=== PATIENT | female | born 1950 | race Caucasian/White ===

== ENCOUNTER 2019-06-05 16:40 | Inpatient (IN) ==
[2019-06-05] MEDS ORDERED: ACETAMINOPHEN 325 MG TAB PO PRN (17:24)
[2019-06-05] MEDS ORDERED: ONDANSETRON INJ 2 MG/ML 2 ML VIAL IV PRN (17:24)
--- NOTE | 2019-06-05 17:33 | History & Physical Report ---
Date of Service June 05, 2019 Assessment & Plan (1) JACQUIE (acute kidney injury): - Admit to PCU with increased Cr. 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 Bowman, consider consultation - Previously was on Velcade and Revlimid, and dexamethasone - reconcile meds (4) History of TIA (transient ischemic attack): - hx of such, stable (5) Mood disorder: - Continue SSRI (6) Anemia: - Checking cbc currently, hx of such. (7) DVT prophylaxis: - teds, heparin subq Dispo: From home, likely to be in the hospital for at least 2 days. Note: I was unable to see that patient myself, therefore attending will supplement and addend the above note, as well as perform PE and med reconciliation. History of Present Illness Primary Care Provider: Albino Rojas Yonathan This is a 68 yo F with PMHx of MM originally diagnosed in Jul 2018 with multiple bony mets involving 4th left fibs, T9, T12, L1 vertebrae, and calavarium. She also has hx of thrombocytopenia, anemia, hx of TIA x 3, mood disorder, hypercalcemia who presents to [facility] as a direct admission from [facility] due to increased nausea and vomiting x one week. Allergies Allergy/AdvReac Type Severity Reaction Status Date / Time ibuprofen AdvReac Tachycardia Unverified 08/08/18 14:02 Home Medications Home Medications Medication Instructions Recorded Confirmed Type aspirin [Vika Aspirin] 325 mg PO DAILY 08/08/18 08/08/18 History sertraline [Zoloft] 100 mg PO BID 08/08/18 08/08/18 History lidocaine 3 patch TRANSDERMAL QAM #10 ea 08/16/18 Rx oxycodone 10 mg PO Q6 PRN #12 tab 08/16/18 Rx Past Med/Surg History Social History Preferred Language: Andorran Communication Ability: Effective Visual Impairment: No Limitations Hearing Ability: Normal Manager Library Required: No Beliefs That Will Affect Care: None Current Living Situation: Family Current Living Situation Comment: lives with son Feels Safe at Home: Yes Smoking Status: Former smoker Second Hand Exposure: No ; Hx Alcohol Use: No Hx Substance Use: No Code Status & VTE Plan VTE Prophylaxis Plan VTE Prophylaxis will be ordered: Yes PG Care Time/CCT Total # of Minutes Spent Total Time Spent with Patient: Total time spent is greater than 50% in coordination of care (as documented) at patient's floor/unit and/or counseling patient: (1) Multiple myeloma Multiple myeloma remission status: unspecified Qualified Code(s): C90.00 - Multiple myeloma not having achieved remission
[2019-06-05] MEDS ORDERED: HEPARIN SOD 5,000 UNIT/0.5 ML VIAL SQ SCH (22:00)
[2019-06-06] MEDS: SODIUM CHLORIDE 0.9% 1000ML 1,000 ML IV SCH ×4 (01:22→15:47)
[2019-06-06] MEDS: PATIENT'S HEIGHT AND/OR WEIGHT NEEDED SCH ×3 (01:22→02:03)
--- NOTE | 2019-06-06 02:01 | History & Physical Report ---
Date of Service June 06, 2019 Assessment & Plan (1) JACQUIE (acute kidney injury): Ms. Fuller is a 68 year old female with a past medical history of multiple myeloma originally diagnosed in Jul 2018 with multiple bony lytic lesions involving 4th left ribs, T9, T12 and L1 vertebrae, and calvarium, thrombocytopenia, anemia, hx of TIA x 3, right leg DVT and depression who presents to [facility] as a direct admission from [facility] due to acute kidney injury. Acute Kidney Injury -admit to telemetry -Creatinine level at [facility] 4.67, significant change from creatinine of 0.85 in 04/14 -unsure of cause of JACQUIE at this time - potentially related to poor p.o intake vs. drug induced vs. infection (see below) -hydrate with NS at 125 mls/hr -repeat labs, including CMP, magnesium, phosphorous, creatine kinase -hold nephrotoxic agents -oh placed at [facility] - monitor urinary output -consider nephrology consult if no improvement in creatinine Nausea and Vomiting -resolved -related to MM medications vs. infection ? Positive UA -UA positive for blood, leukocyte esterase, white cells, bacteria -> will send for culture -Blood cultures also ordered -No overt urinary symptoms, however in the face of chills, vomiting, elevated creatinine and lactic acidosis -will treat empirically with 2 g IV Rocephin daily Multiple Myeloma -follows with Dr. Andersen, will consult -receiving treatment with Revlimid -> will hold treatment at this time given concern for active infection. Defer decision on when to restart to heme/onc -> pt states her regimen is 14 days of revlimid, and 7 days off. She states today is day 4 of her 14 days of the medication -also receiving once a month bisphosphonates Pancytopenia -White cell count 1.81, hemoglobin 10.7, platelets 62 - all lower than labs ordered in 04/14 -worsening pancytopenia could be related to MM vs. treatment with Revlimid -repeat CBC Transaminitis -AST 362 and ALT 164 -> increased from normal LFTs in 03/2019 -no RUQ pain, pt has had a prior cholecystectomy -Revlimid does list hepatotoxicity as an adverse reaction - could potentially be the cause? -trend LFTs Hypertension -continue home metoprolol Right Leg DVT -diagnosed in April 2019 -hold lovenox given thrombocytopenia and JACQUIE -depending on AM labs, can restart lovenox vs. heparin drip for DVT Depression -continue home sertraline Code status: FULL DVT Prophylaxis: hold in the setting of thrombocytopenia Disposition: admitted to telemetry (2) Nausea & vomiting: (3) Multiple myeloma: (4) History of TIA (transient ischemic attack): (5) Mood disorder: (6) Anemia: (7) Thrombocytopenia: History of Present Illness Chief Complaint: Acute Kidney Injury Primary Care Provider: Albino Mcmanus Ms. Fuller is a 68 year old female with a past medical history of multiple myeloma originally diagnosed in Jul 2018 with multiple bony lytic lesions involving 4th left ribs, T9, T12 and L1 vertebrae, and calvarium, thrombocytopenia, anemia, hx of TIA x 3, right leg DVT and depression who presents to [facility] as a direct admission from [facility] due to acute kidney injury. She states she had a 1 week history of vomiting that stopped 3 days ago. She did have several episodes of loose stools 4 days ago, took Imodium and has not had any since. She presented to the emergency department at [facility] due to feeling fatigued and weak. She denies any further episodes of vomiting or diarrhea. She states she never had any abdominal pain, urinary symptoms or fever. She does report intermittent chills. She denies chest pain or shortness of breath. The patient states that she was transferred to [facility] due to an elevated creatinine level. Her labs from [facility] are significant for: WCC 1.81, Hgb 10.6, Platelets 62. Na 136, K 3.8, BUN 50, Cr 4.67, Alk phos 57, AST 362, ALT 164, Mg 1.6, Lactic Acid 3.2, and negative trop. Blood and urine cultures were ordered. She was given a 1L normal saline bolus and subsequently transferred to [facility]. PMHx: Multiple myeloma, follows with Dr. Andersen. Right leg DVT, diagnosed 1 month ago. TIA x3. Depression. PSHx: Hysterectomy, cholecystectomy Meds: Revlimid 25 mg daily, Lopressor 25 mg twice daily, Lovenox 100 mg twice daily, Zoloft 100 mg twice daily Allergies: No known drug allergies SHx: She is a former smoker, and quit approximately 30 years ago, but smoked 3 packs a day for 17 years. She rarely consumes alcohol and denies illicit drug use. Allergies Allergy/AdvReac Type Severity Reaction Status Date / Time ibuprofen AdvReac Tachycardia Unverified 08/08/18 14:02 Home Medications Home Medications Medication Instructions Recorded Confirmed Type aspirin [Vika Aspirin] 325 mg PO DAILY 08/08/18 08/08/18 History sertraline [Zoloft] 100 mg PO BID 08/08/18 08/08/18 History lidocaine 3 patch TRANSDERMAL QAM #10 ea 08/16/18 Rx oxycodone 10 mg PO Q6 PRN #12 tab 08/16/18 Rx Past Med/Surg History Medical History Leukopenia Multiple myeloma History of TIA (transient ischemic attack) History of hysterectomy Mood disorder No known problems Social History Preferred Language: Argentine Communication Ability: Effective Visual Impairment: No Limitations Hearing Ability: Normal Senior Physician Required: No Beliefs That Will Affect Care: None Current Living Situation: Alone Current Living Situation Comment: lives with son Other Information That Helps Us Care for You: No Feels Safe at Home: Yes Safety Concerns: Feels Safe At This Time Smoking Status: Unknown if ever smoked Hx Alcohol Use: No Hx Substance Use: No Review of Systems Constitutional: + chills, + fatigue and + weakness; no fever Cardiovascular: + calf pain; no chest pain, no palpitations, no syncope and no edema Gastrointestinal: no abdominal pain, no nausea, no vomiting and no change in bowel habits Genitourinary: no dysuria, no difficulty urinating and no urinary frequency Musculoskeletal: no back pain Integumentary: no rash Physical Exam Constitutional: WD/WN, vitals as above cooperative and comfortable Eyes: PERRL, conjunctivae normal, anicteric sclerae ENMT: external ear and nose normal, oropharynx normal (dry mucous membranes) Respiratory: normal respiratory effort, lungs clear to auscultation Cardiovascular: RRR, no murmur, no edema Gastrointestinal (Abdomen): normal bowel sounds, soft, nontender, no hepatosplenomegaly (multiple bruises noted to abdomen) Musculoskeletal: right calf TTP, no erythema, not warm to touch Skin: no rashes, warm and dry Neurologic: Cranial nerves 2-12 grossly intact 5/5 power in UE and LE Psychiatric: A+Ox3, euthymic affect Results & Data Vital Signs (Past 12 Hours) Vital Signs Pulse Resp BP Pulse Ox 06/06/19 01:09 78 18 102/51 L 98 Code Status & VTE Plan VTE Prophylaxis Plan VTE Prophylaxis will be ordered: Yes Supervising Physician Co-Signing Physician Notes Patient was seen and examined by me personally. I reviewed the chart, the orders and discussed the case in detail with Dr. Miley Zambrano MD . I read this H&P and agree with its contents to entirety. PG Care Time/CCT Total # of Minutes Spent Total Time Spent with Patient: Total time spent is greater than 50% in coordination of care (as documented) at patient's floor/unit and/or counseling patient: Resident Activity Tracking Resident Involvement: Resident Care Provided Care Provided: Adult [facility] Medicine (1) Multiple myeloma Multiple myeloma remission status: unspecified Qualified Code(s): C90.00 - Multiple myeloma not having achieved remission
[2019-06-06 02:07] LABS: Appearance Urine Cloudy (Clear); Bacteria Urine Automated 4+ (Negative); Bilirubin Urine Negative (Negative); Blood Urine 2+ (Negative); Color Urine Yellow; Epithelial Cell Urine Auto 0-5 /lpf (0-5); Glucose Urine UA Negative (Negative); Ketones Urine Negative (Negative); Leukocyte Esterase Urine 3+ (Negative); Nitrite Urine Negative (Negative); Protein Urine 2+ (Negative); Specific Gravity Urine 1.013 (1.000-1.030); Urobilinogen Urine Negative (Negative); WBC Urine Automated >30 /hpf (0-5)
[2019-06-06 03:37] LABS: Albumin Globulin Ratio 0.3 (0.9-2); BUN Creatinine Ratio 11.7 (10-20); Bilirubin,Total 0.8 mg/dl (0.2-1); Calcium 7.2 mg/dl (8.5-10.1); Creatinine Clr Calc Pharmacy 13.6 ml/min; Est GFR (African American) 10.7; Est GFR (Non-African American) 9.3; Globulin 6.5 gm/dl (2.5-4.0); Phosphorus 3.4 mg/dl (2.5-4.9); Total Protein 8.5 gm/dl (6.4-8.2)
[2019-06-06 04:21] LABS: Hematocrit (blood only) 26.2 % (37-47); Hemoglobin 8.9 g/dL (12.0-16.0); Mean Corpuscular Volume 99.2 fL (80-100); RDW Coefficient of Variation 17.3 % (11.5-14.5); RDW Standard Deviation 62.2 fL (36.4-46.3); Red Blood Count 2.64 M/uL (4.2-5.4); White Blood Count 1.32 K/uL (4.8-10.8)
[2019-06-06 04:33] LABS: Potassium 3.6 mmol/L (3.5-5.1)
[2019-06-06 04:36] LABS: INR 1.6 (0.9-1.1); Prothrombin Time 15.8 Seconds (9.0-12.0)
[2019-06-06 04:42] LABS: Magnesium 1.5 mg/dl (1.8-2.4)
[2019-06-06] MEDS: cefTRIAXone SODIUM 2,000 MG in DEXTROSE 5% 50 ML IV SCH (05:25)
[2019-06-06 05:31] LABS: Mean Platelet Volume 10.8 fL (7.4-10.4); Platelet Count 38 K/uL (130-400)
[2019-06-06] MEDS ORDERED: HEPARIN SOD 5,000 UNIT/0.5 ML VIAL SQ SCH (06:00)
[2019-06-06] MEDS: MAGNESIUM SULFATE / D5W 1 GM/100 ML BAG IV SCH ×2 (06:19→07:53)
[2019-06-06] MEDS: SERTRALINE HCL 100 MG TABLET PO SCH ×2 (07:53→20:32)
[2019-06-06] MEDS: METOPROLOL TARTRATE 25 MG TAB PO SCH ×2 (07:53→20:32)
--- NOTE | 2019-06-06 08:10 | Family Medicine Progress Note ---
Date of Service June 06, 2019 Assessment & Plan (1) JACQUIE (acute kidney injury): 68 year old female with PMH of multiple myeloma (originally diagnosed in Jul 2018 with multiple bony lytic lesions involving 4th left ribs, T9, T12 and L1 vertebrae, and calvarium), thrombocytopenia, anemia, hx of TIA x 3, right leg DVT and depression who presents to [facility] as a direct admission from [facility] due to acute kidney injury. Acute Kidney Injury Prerenal v intrarenal v post renal v infection related -Creatinine level at [facility] 4.67, significant change from creatinine of 0.85 in 04/14 Plan: -Monitor BMP - Alcohol Law Enforcement Agent not improving at this time, but urine output remains adequate. Benítez in place. Given worsening, routine consult to Nephro placed. -Post -- Renal US shows no obstruction, no hydronephrosis - not likely postrenal -Pre -- some element of nausea and vomiting per report, has been asymptomatic here. Urine Na, Alcohol Law Enforcement Agent pending -Avoiding all nephrotoxic medications, holding Revlimid. -E-lytes stable with exception of mild hypomagnesemia, repleted. -cont to monitor on telemetry Positive UA -UA positive for blood, leukocyte esterase, white cells, bacteria -> Ucx and Blood cx pending. -will treat empirically with 2 g IV Rocephin daily Multiple Myeloma -follows with Dr. Andersen, appreciate recommendations -receiving treatment with Revlimid -> will hold treatment at this time given concern for active infection. Defer decision on when to restart to heme/onc -> pt states her regimen is 14 days of revlimid, and 7 days off. Day of admission is day 4 of her 14 days of the medication -also receiving once a month bisphosphonates Acute on chronic Pancytopenia -worsening pancytopenia could be related to MM vs. treatment with Revlimid -follow CBC, hold chem anticoagulation ppx in light of low plt. Mild Transaminitis -AST 362 and ALT 164 -> increased from normal LFTs in 03/2019 -no RUQ pain, pt has had a prior cholecystectomy -follow LFTs H/o Right Leg DVT -diagnosed in April 2019 -hold lovenox given thrombocytopenia and JACQUIE -will need to restart lovenox vs. heparin drip for DVT Code status: FULL DVT Prophylaxis: SCDs, hold in the setting of thrombocytopenia Disposition: admitted to telemetry Other ongoing medical problems: Depression -continue home sertraline Hypertension -continue home metoprolol - hold for parameters (2) Nausea & vomiting: (3) Multiple myeloma: (4) History of TIA (transient ischemic attack): (5) Mood disorder: (6) Anemia: (7) Thrombocytopenia: Supervising Physician Co-Signing Physician Notes Attending attestation Pt seen and examined in concert with Dr. Rebolledo. In agreement with the documented findings as noted in the resident documentation with any exceptions or additions as noted here. Resting comfortably with mild intermittent wandering lower abdominal pain without n/v/d/c which is mildly reproducible with palpation. JACQUIE - uptrending creatinine with baseline as noted. Continue hydration. Consult nephrology. Urine sodium/creatinine and renal US to follow. Urinary tract infection - follow up UCx. Continue rocephin. Pancytopenia - trend CBC, holding chemo Multiple myeloma - oncology consultation appreciated - hold chemotherapy RLE DVT - holding lovenox 2/2 low plt. Follow CBC and restart AC when plt impr oves. Else see resident documentation as noted. Subjective Sitting upright in bed, in good spirits. Says she has noticed a gradual decrease in her urine output over the last several days, but didn't really think much of it. Otherwise has been compliant with her meds including chemotherapeutics for her MM. Denies change in her habits or dehydration or excessive NSAIDs. Has not had imaging requiring IV contrast recently. Does take aspirin daily. Review of Systems Review of Systems: All systems reviewed & are unremarkable except as noted in HPI & below (denies abdiel dysuria, abdominal pain, chest pain, dyspnea. Endorses some weakness.) Physical Exam Physical Exam: Vitals noted and within normal limits with the exception of mild hypotension GENERAL: Awake, alert to person, place, and time, nontoxic-appearing, in no distress. HENT: Normocephalic, atraumatic. EYES: Normal conjunctiva. Sclera non-icteric. EOMI. NECK: Supple. Full range of motion. RESPIRATORY: Clear to auscultation. Normal work of breathing. CARDIAC: Regular rate, normal rhythm, occasional PVCs noted on tele-monitor. Extremities warm and well perfused. ABDOMEN: Soft, non-distended. No tenderness to palpation . Bowel sounds are normal. LOWER EXTREMITIES: Inspection of calves reveal equal size bilaterally. They are non-tender. No edema. No discoloration. NEURO: No gross focal motor deficits noted. Sensation in tact. CN II-XII grossly in tact. . SKIN: Rash not present. No jaundice noted. Significant lesions not present. PSYCH: Appropriate mood and affect. Cooperative. Exam as done by Abril Rebolledo MD, [employer]. Results & Data Vital Signs (Past 12 Hours) Vital Signs Temp Pulse Pulse Resp BP Pulse Ox 06/06/19 08:09 76 06/06/19 07:48 36.8 C 73 18 104/53 L 91 06/06/19 03:11 36.6 C 78 18 101/58 L 97 06/06/19 02:13 78 06/06/19 01:09 78 18 102/51 L 98 Laboratory Results 06/06/19 06/06/19 06/06/19 Range/Units 11:50 11:50 03:59 WBC 1.45 L 1.32 L (4.8-10.8) K/uL RBC 2.79 L 2.64 L (4.2-5.4) M/uL Hgb 9.5 L 8.9 L (12.0-16.0) g/dL Hct 27.8 L 26.2 L (37-47) % MCV 99.6 99.2 (80-100) fL MCH 34.1 H 33.7 (25-34) pg MCHC 34.2 34.0 (32-36) g/dL RDW Std Deviation 62.5 H 62.2 H (36.4-46.3) fL RDW Coeff of Kimberly 17.3 H 17.3 H (11.5-14.5) % Plt Count 36 L 38 L (130-400) K/uL MPV 10.7 H 10.8 H (7.4-10.4) fL Neutrophils % (Manual) 36.0 61.0 % Lymphocytes % (Manual) 33.0 14.0 % Monocytes % (Manual) 15.0 12.0 % Eosinophils % (Manual) 1.0 3.0 % Basophils % (Manual) 2.0 % Metamyelocytes % (Man) 5.0 1.0 % Myelocytes % (Man) 9.0 4.0 % Blast Cells % (Manual) 1.0 % Other Cells % 3.0 % Neutrophils # (Manual) 0.52 L 0.81 L (1.4-6.5) K/uL Total Absolute Neuts 0.52 L* 0.81 L* (1.4-6.5) K/uL Lymphocytes # (Manual) 0.48 L 0.18 L (1.2-3.4) K/uL Total Abs Lymphocytes 0.48 L 0.18 L (1.2-3.4) K/uL Monocytes # (Manual) 0.22 0.16 (0.11-0.59) K/uL Eosinophils # (Manual) 0.01 0.04 (0-0.5) K/uL Basophils # (Manual) 0.03 (0-0.2) K/uL Metamyelocytes # (Man) 0.07 H 0.01 H (0-0) K/uL Myelocytes # (Manual) 0.13 H 0.05 H (0-0) K/uL Blast Cells # (Man) 0.01 H 0.04 H (0-0) K/uL Other Cells # 0.04 H (0-0) K/uL Blood Smear Review RBC Morphology Unremarkable Unremarkable PT INR Sodium 137 (136-145) mmol/L Potassium 4.0 (3.5-5.1) mmol/L Chloride 104 (98-107) mmol/L Carbon Dioxide 21 (21-32) mmol/L Anion Gap 12.0 H (3-11) BUN 57 H (7-18) mg/dl Creatinine 5.14 H* D (0.6-1.2) mg/dl Est Cr Clr Drug Dosing 12.2 ml/min Est GFR ( Amer) 9.4 Est GFR (Non-Af Amer) 8.1 BUN/Creatinine Ratio 11.1 (10-20) Glucose 109 H (70-99) mg/dl Lactate (0.4-2.0) mmol/L Calcium 7.4 L (8.5-10.1) mg/dl Phosphorus (2.5-4.9) mg/dl Magnesium (1.8-2.4) mg/dl Total Bilirubin 0.6 (0.2-1) mg/dl AST 335 H (15-37) U/L ALT 192 H (12-78) U/L Alkaline Phosphatase 54 (45-117) U/L Total Creatine Kinase (26-192) U/L Total Protein 8.5 H (6.4-8.2) gm/dl Albumin 2.0 L (3.4-5.0) gm/dl Globulin 6.5 H (2.5-4.0) gm/dl Albumin/Globulin Ratio 0.3 L (0.9-2) Urine Color Urine Appearance (Clear) Urine pH (4.5-7.5) Ur Specific Carson (1.000-1.030) Urine Protein (Negative) Urine Glucose (UA) (Negative) Urine Ketones (Negative) Urine Blood (Negative) Urine Nitrite (Negative) Urine Bilirubin (Negative) Urine Urobilinogen (Negative) Ur Leukocyte Esterase (Negative) Urine WBC (Auto) (0-5) /hpf Urine RBC (Auto) (0-4) /hpf U Hyaline Cast (Auto) (0-5) /lpf U Epithel Cells (Auto) (0-5) /lpf Urine Bacteria (Auto) (Negative) Hepatitis C Ab Screen (Neg) 06/06/19 06/06/19 06/06/19 Range/Units 03:59 03:59 02:52 WBC (4.8-10.8) K/uL RBC (4.2-5.4) M/uL Hgb (12.0-16.0) g/dL Hct (37-47) % MCV (80-100) fL MCH (25-34) pg MCHC (32-36) g/dL RDW Std Deviation (36.4-46.3) fL RDW Coeff of Kimberly (11.5-14.5) % Plt Count (130-400) K/uL MPV (7.4-10.4) fL Neutrophils % (Manual) % Lymphocytes % (Manual) % Monocytes % (Manual) % Eosinophils % (Manual) % Basophils % (Manual) % Metamyelocytes % (Man) % Myelocytes % (Man) % Blast Cells % (Manual) % Other Cells % % Neutrophils # (Manual) (1.4-6.5) K/uL Total Absolute Neuts (1.4-6.5) K/uL Lymphocytes # (Manual) (1.2-3.4) K/uL Total Abs Lymphocytes (1.2-3.4) K/uL Monocytes # (Manual) (0.11-0.59) K/uL Eosinophils # (Manual) (0-0.5) K/uL Basophils # (Manual) (0-0.2) K/uL Metamyelocytes # (Man) (0-0) K/uL Myelocytes # (Manual) (0-0) K/uL Blast Cells # (Man) (0-0) K/uL Other Cells # (0-0) K/uL Blood Smear Review RBC Morphology PT 15.8 H INR 1.6 H Sodium (136-145) mmol/L Potassium 3.6 (3.5-5.1) mmol/L Chloride (98-107) mmol/L Carbon Dioxide (21-32) mmol/L Anion Gap (3-11) BUN (7-18) mg/dl Creatinine (0.6-1.2) mg/dl Est Cr Clr Drug Dosing ml/min Est GFR ( Amer) Est GFR (Non-Af Amer) BUN/Creatinine Ratio (10-20) Glucose (70-99) mg/dl Lactate (0.4-2.0) mmol/L Calcium (8.5-10.1) mg/dl Phosphorus (2.5-4.9) mg/dl Magnesium 1.5 L (1.8-2.4) mg/dl Total Bilirubin (0.2-1) mg/dl AST 321 H (15-37) U/L ALT (12-78) U/L Alkaline Phosphatase (45-117) U/L Total Creatine Kinase 100 (26-192) U/L Total Protein (6.4-8.2) gm/dl Albumin (3.4-5.0) gm/dl Globulin (2.5-4.0) gm/dl Albumin/Globulin Ratio (0.9-2) Urine Color Urine Appearance (Clear) Urine pH (4.5-7.5) Ur Specific Carson (1.000-1.030) Urine Protein (Negative) Urine Glucose (UA) (Negative) Urine Ketones (Negative) Urine Blood (Negative) Urine Nitrite (Negative) Urine Bilirubin (Negative) Urine Urobilinogen (Negative) Ur Leukocyte Esterase (Negative) Urine WBC (Auto) (0-5) /hpf Urine RBC (Auto) (0-4) /hpf U Hyaline Cast (Auto) (0-5) /lpf U Epithel Cells (Auto) (0-5) /lpf Urine Bacteria (Auto) (Negative) Hepatitis C Ab Screen Neg (Neg) 06/06/19 06/06/19 06/06/19 Range/Units 02:52 02:52 02:52 WBC (4.8-10.8) K/uL RBC (4.2-5.4) M/uL Hgb (12.0-16.0) g/dL Hct (37-47) % MCV (80-100) fL MCH (25-34) pg MCHC (32-36) g/dL RDW Std Deviation (36.4-46.3) fL RDW Coeff of Kimberly (11.5-14.5) % Plt Count (130-400) K/uL MPV (7.4-10.4) fL Neutrophils % (Manual) % Lymphocytes % (Manual) % Monocytes % (Manual) % Eosinophils % (Manual) % Basophils % (Manual) % Metamyelocytes % (Man) % Myelocytes % (Man) % Blast Cells % (Manual) % Other Cells % % Neutrophils # (Manual) (1.4-6.5) K/uL Total Absolute Neuts (1.4-6.5) K/uL Lymphocytes # (Manual) (1.2-3.4) K/uL Total Abs Lymphocytes (1.2-3.4) K/uL Monocytes # (Manual) (0.11-0.59) K/uL Eosinophils # (Manual) (0-0.5) K/uL Basophils # (Manual) (0-0.2) K/uL Metamyelocytes # (Man) (0-0) K/uL Myelocytes # (Manual) (0-0) K/uL Blast Cells # (Man) (0-0) K/uL Other Cells # (0-0) K/uL Blood Smear Review RBC Morphology PT Cancelled INR Cancelled Sodium 137 (136-145) mmol/L Potassium (3.5-5.1) mmol/L Chloride 105 (98-107) mmol/L Carbon Dioxide 23 (21-32) mmol/L Anion Gap 9.0 (3-11) BUN 54 H (7-18) mg/dl Creatinine 4.60 H* (0.6-1.2) mg/dl Est Cr Clr Drug Dosing 13.6 ml/min Est GFR ( Amer) 10.7 Est GFR (Non-Af Amer) 9.3 BUN/Creatinine Ratio 11.7 (10-20) Glucose 83 (70-99) mg/dl Lactate 1.1 (0.4-2.0) mmol/L Calcium 7.2 L (8.5-10.1) mg/dl Phosphorus 3.4 (2.5-4.9) mg/dl Magnesium (1.8-2.4) mg/dl Total Bilirubin 0.8 (0.2-1) mg/dl AST (15-37) U/L ALT 179 H (12-78) U/L Alkaline Phosphatase 49 (45-117) U/L Total Creatine Kinase (26-192) U/L Total Protein 8.5 H (6.4-8.2) gm/dl Albumin 2.0 L (3.4-5.0) gm/dl Globulin 6.5 H (2.5-4.0) gm/dl Albumin/Globulin Ratio 0.3 L (0.9-2) Urine Color Urine Appearance (Clear) Urine pH (4.5-7.5) Ur Specific Carson (1.000-1.030) Urine Protein (Negative) Urine Glucose (UA) (Negative) Urine Ketones (Negative) Urine Blood (Negative) Urine Nitrite (Negative) Urine Bilirubin (Negative) Urine Urobilinogen (Negative) Ur Leukocyte Esterase (Negative) Urine WBC (Auto) (0-5) /hpf Urine RBC (Auto) (0-4) /hpf U Hyaline Cast (Auto) (0-5) /lpf U Epithel Cells (Auto) (0-5) /lpf Urine Bacteria (Auto) (Negative) Hepatitis C Ab Screen (Neg) 06/06/19 Range/Units 02:00 WBC (4.8-10.8) K/uL RBC (4.2-5.4) M/uL Hgb (12.0-16.0) g/dL Hct (37-47) % MCV (80-100) fL MCH (25-34) pg MCHC (32-36) g/dL RDW Std Deviation (36.4-46.3) fL RDW Coeff of Kimberly (11.5-14.5) % Plt Count (130-400) K/uL MPV (7.4-10.4) fL Neutrophils % (Manual) % Lymphocytes % (Manual) % Monocytes % (Manual) % Eosinophils % (Manual) % Basophils % (Manual) % Metamyelocytes % (Man) % Myelocytes % (Man) % Blast Cells % (Manual) % Other Cells % % Neutrophils # (Manual) (1.4-6.5) K/uL Total Absolute Neuts (1.4-6.5) K/uL Lymphocytes # (Manual) (1.2-3.4) K/uL Total Abs Lymphocytes (1.2-3.4) K/uL Monocytes # (Manual) (0.11-0.59) K/uL Eosinophils # (Manual) (0-0.5) K/uL Basophils # (Manual) (0-0.2) K/uL Metamyelocytes # (Man) (0-0) K/uL Myelocytes # (Manual) (0-0) K/uL Blast Cells # (Man) (0-0) K/uL Other Cells # (0-0) K/uL Blood Smear Review RBC Morphology PT INR Sodium (136-145) mmol/L Potassium (3.5-5.1) mmol/L Chloride (98-107) mmol/L Carbon Dioxide (21-32) mmol/L Anion Gap (3-11) BUN (7-18) mg/dl Creatinine (0.6-1.2) mg/dl Est Cr Clr Drug Dosing ml/min Est GFR ( Amer) Est GFR (Non-Af Amer) BUN/Creatinine Ratio (10-20) Glucose (70-99) mg/dl Lactate (0.4-2.0) mmol/L Calcium (8.5-10.1) mg/dl Phosphorus (2.5-4.9) mg/dl Magnesium (1.8-2.4) mg/dl Total Bilirubin (0.2-1) mg/dl AST (15-37) U/L ALT (12-78) U/L Alkaline Phosphatase (45-117) U/L Total Creatine Kinase (26-192) U/L Total Protein (6.4-8.2) gm/dl Albumin (3.4-5.0) gm/dl Globulin (2.5-4.0) gm/dl Albumin/Globulin Ratio (0.9-2) Urine Color Yellow Urine Appearance Cloudy A (Clear) Urine pH 6.0 (4.5-7.5) Ur Specific Carson 1.013 (1.000-1.030) Urine Protein 2+ H (Negative) Urine Glucose (UA) Negative (Negative) Urine Ketones Negative (Negative) Urine Blood 2+ H (Negative) Urine Nitrite Negative (Negative) Urine Bilirubin Negative (Negative) Urine Urobilinogen Negative (Negative) Ur Leukocyte Esterase 3+ H (Negative) Urine WBC (Auto) >30 H (0-5) /hpf Urine RBC (Auto) 5-10 H (0-4) /hpf U Hyaline Cast (Auto) 1-5 (0-5) /lpf U Epithel Cells (Auto) 0-5 (0-5) /lpf Urine Bacteria (Auto) 4+ H (Negative) Hepatitis C Ab Screen (Neg) Medications Administered Current Inpatient Medications Acetaminophen (Tylenol) 650 mg PO Q4H PRN PRN Reason: Moderate Pain Stop: 07/05/19 17:23 Sodium Chloride (Nss 1000ml) 1,000 mls @ 125 mls/hr IV .Q8H [facility] Stop: 06/06/19 17:29 Last Admin: 06/06/19 15:47 Dose: 125 mls/hr Documented by: Ceftriaxone Sodium 2,000 mg/ (Dextrose) 70 mls @ 100 mls/hr IV Q24H [facility]; Protocol Stop: 06/11/19 05:59 Last Infusion: 06/06/19 06:07 Dose: Infused Documented by: Metoprolol Tartrate (Lopressor) 25 mg PO BID [facility] Stop: 07/06/19 08:59 Last Admin: 06/06/19 07:53 Dose: 25 mg Documented by: Ondansetron HCl (Zofran) 4 mg IV Q4H PRN PRN Reason: Nausea And Vomiting Stop: 07/05/19 17:23 Sertraline HCl (Zoloft) 100 mg PO BID [facility] Stop: 07/06/19 08:59 Last Admin: 06/06/19 07:53 Dose: 100 mg Documented by: PG Care Time/CCT Total # of Minutes Spent Total Time Spent with Patient: Total time spent is greater than 50% in coordination of care (as documented) at patient's floor/unit and/or counseling patient: Resident Activity Tracking Resident Involvement: Resident Care Provided Care Provided: Adult Hospital Medicine (1) Multiple myeloma Multiple myeloma remission status: unspecified Qualified Code(s): C90.00 - Multiple myeloma not having achieved remission
[2019-06-06 08:34] LABS: RBC Morphology Unremarkable
[2019-06-06 08:35] LABS: ALC (manual) 0.18 K/uL (1.2-3.4); Basophils # (manual) 0.03 K/uL (0-0.2); Blast # (manual) 0.04 K/uL (0-0); Eosinophils # (manual) 0.04 K/uL (0-0.5); Lymphocytes # (manual) 0.18 K/uL (1.2-3.4); Metamyelocytes # (manual) 0.01 K/uL (0-0); Monocytes # (manual) 0.16 K/uL (0.11-0.59); Myelocytes # (manual) 0.05 K/uL (0-0); Other Cells # (manual) 0.04 K/uL (0-0)
--- NOTE | 2019-06-06 09:17 | Consultation Report ---
DATE OF CONSULTATION: 06/06/2019 HEMATOLOGY CONSULTATION REASON FOR CONSULTATION: Acute renal injury and history of IgA lambda multiple myeloma. HISTORY OF PRESENT ILLNESS: Rebecca Fuller is a very pleasant 68-year-old female well known to [facility] under my care with a diagnosis of stage III IgA lambda multiple myeloma. Diagnosis was established back in 07/2018 when she had developed overt fatigue and diffuse skeletal pain. The patient was initially started on combination Revlimid, Velcade and dexamethasone and was responding favorably. In fact over time, I had discontinued dexamethasone first and subsequently discontinued Velcade and maintained Revlimid monotherapy. Rebecca says she has been compliant and was last seen in the office on 04/21, at which time I had planned to send her to the [facility] to be considered for autologous peripheral blood stem cell transplant. She had continued to receive bisphosphonate therapy monthly. However, over the past several days, she had developed profound fatigue, anorexia, nausea and vomiting, prompting her to visit our Emergency Room. She also has remote history of a right lower extremity DVT and is currently on anticoagulation. She initially presented to the Emergency Department [place] and was transferred to our service with a markedly elevated creatinine level, which is a major change for her. Reviewing her medical record and prior labs indicates that her creatinine had been normal throughout treatment. She has been provided vigorous IV fluid and placed on prophylactic antibiotics. PAST MEDICAL HISTORY: Significant for IgA lambda multiple myeloma, history of TIA, mood disorder. CURRENT MEDICATIONS: Include daily aspirin 325 mg, sertraline 100 mg p.o. b.i.d., lidocaine 3 patches transdermally in the a.m. and oxycodone 10 mg p.o. q.6 hours. ALLERGIES: IBUPROFEN. SOCIAL HISTORY: The patient lives with her son. She is a nonsmoker, nondrinker, non-illicit drug user. FAMILY HISTORY: Noncontributory. REVIEW OF SYSTEMS: CONSTITUTIONAL: As per HPI, most notably for profound fatigue, anorexia, weight loss, nausea and vomiting. SKIN: No history of dermatoses. No active rashes or lesions. HEENT: She denies headaches, lightheadedness or dizziness. She wears corrective lenses. Otherwise, no acute visual or hearing deficits. No sinus symptoms, sore throat or dysphagia. LYMPHATICS: No history of lymphadenopathy or lymphoproliferative disease. CARDIAC: Negative for coronary artery disease. No current angina or palpitations. PULMONARY: Negative for COPD. No shortness of breath, dyspnea or orthopnea. No cough or hemoptysis. GASTROINTESTINAL: Negative for abdominal pain. Positive for nausea and vomiting. Negative for active diarrhea or constipation, no hematochezia or melena stools. GENITOURINARY: No hematuria, dysuria, or urinary incontinence; however, her UA is positive for blood on admission. ENDOCRINE: Negative for diabetes or thyroid disease. MUSCULOSKELETAL: Positive for lytic skeletal disease. Pain has been well controlled. No new arthralgias. NEUROLOGIC: Negative for seizure, stroke, or migraine headache. HEMATOLOGIC: Positive for pancytopenia. PHYSICAL EXAMINATION: GENERAL: A very pleasant 68-year-old female, in no acute distress. VITAL SIGNS: Temperature 36.8, pulse 76, respiratory rate 18, blood pressure 104/53. SKIN: Warm, dry, noncyanotic without petechia, rash or ecchymosis. HEENT: Head is atraumatic, normocephalic. Eyes: PERRLA, EOMI. Sclerae nonicteric. No conjunctival injection. Nares are patent without rhinorrhea or discharge. Throat is clear. Tongue is midline. Mucous membranes are moist. NECK: Supple without JVD or thyromegaly. LYMPHATICS: No cervical, supraclavicular, axillary or inguinal palpable nodes. HEART: Regular rate and rhythm. No clicks, rubs, murmurs or gallops. LUNGS: Clear to auscultation bilaterally. ABDOMEN: Soft, nontender, nondistended, without palpable hepatosplenomegaly. EXTREMITIES: No calf tenderness or swelling. No clubbing, cyanosis or edema. NEUROLOGICAL: She is awake, alert and oriented x3. Cranial nerves II-XII are grossly intact. No gross motor or sensory deficits are noted. LABORATORY DATA: WBC count 1320, hemoglobin 8.9, platelet count 38,000. PT 15.8 seconds, INR 1.6. Sodium 137, potassium 3.6, chloride 105, carbon dioxide 23, creatinine 4.60, BUN 54, magnesium 1.5, AST 321, ALT 179, albumin 2.0. IMPRESSION: 1. Acute renal injury. 2. Nausea and vomiting. 3. Positive urinalysis. 4. IgA lambda multiple myeloma. 5. Pancytopenia. 6. Transaminitis. 7. Right lower extremity deep venous thrombosis. PLAN: Rebecca Fuller is a pleasant 68-year-old female with history of IgA lambda multiple myeloma diagnosed in last July and received induction Revlimid, Velcade and dexamethasone. Initially had responded very well to the point where I actually weaned her off dexamethasone and Velcade and I planned to proceed to autologous peripheral blood stem cell transplant. Her consult to [facility] is later this month. However, over the past several days, she has become progressively ill manifested by anorexia and fatigue as well as nausea and vomiting. She presented to her local hospital and found to be in acute renal failure. Her urinalysis is suspicious and I suspect she may be in the throes of urosepsis. She has a transaminitis, which is also unexplained. Again, Revlimid perhaps can cause a hepatic toxicity, but it is quite rare. This lady has been on therapy for quite some time and I believe a drug effect is less likely. I believe her pancytopenia may be attributable to emerging infection and not necessarily drug effect. Again, for the most part, her labs have been stable up until recently. Lastly, relapsed multiple myeloma has to be considered and thus, we would recommend complete myeloma panel including quantitative immunoglobulins, serum and urine (24-hour) protein electrophoresis with immunofixation as well as kappa/lambda light chain ratio. Would also strongly recommend nephrology get involved. Would proceed with broad spectrum antibiotics covering /GI pathogens. I will continue to follow her on a daily basis. She is to hold Revlimid until further notice. Agree with medical management otherwise. Thank you very much for allowing me to participate in her care.
[2019-06-06 12:18] LABS: Hematocrit (blood only) 27.8 % (37-47); Hemoglobin 9.5 g/dL (12.0-16.0); Mean Corpuscular Hgb Conc 34.2 g/dL (32-36); Mean Corpuscular Volume 99.6 fL (80-100); RDW Coefficient of Variation 17.3 % (11.5-14.5); RDW Standard Deviation 62.5 fL (36.4-46.3); Red Blood Count 2.79 M/uL (4.2-5.4); White Blood Count 1.45 K/uL (4.8-10.8)
[2019-06-06 12:55] LABS: Mean Platelet Volume 10.7 fL (7.4-10.4); Platelet Count 36 K/uL (130-400)
[2019-06-06 13:09] LABS: Albumin Globulin Ratio 0.3 (0.9-2); BUN Creatinine Ratio 11.1 (10-20); Bilirubin,Total 0.6 mg/dl (0.2-1); Calcium 7.4 mg/dl (8.5-10.1); Creatinine Clr Calc Pharmacy 12.2 ml/min; Est GFR (African American) 9.4; Est GFR (Non-African American) 8.1; Globulin 6.5 gm/dl (2.5-4.0); Total Protein 8.5 gm/dl (6.4-8.2)
[2019-06-06] MEDS ORDERED: SODIUM CHLORIDE 0.9% 1000ML 500 ML IV ONE (13:50)
[2019-06-06 14:01] LABS: RBC Morphology Unremarkable
[2019-06-06 14:03] LABS: ALC (manual) 0.48 K/uL (1.2-3.4); Blast # (manual) 0.01 K/uL (0-0); Eosinophils # (manual) 0.01 K/uL (0-0.5); Lymphocytes # (manual) 0.48 K/uL (1.2-3.4); Metamyelocytes # (manual) 0.07 K/uL (0-0); Monocytes # (manual) 0.22 K/uL (0.11-0.59); Myelocytes # (manual) 0.13 K/uL (0-0)
--- NOTE | 2019-06-06 14:53 | Ultrasound Report ---
US renal/blad retro comp HISTORY: Renal insufficiency JACQUIE COMPARISON: None. FINDINGS: Right kidney: Maximum dimension 13.3 cm. No evidence for hydronephrosis. 4 cm lower pole cyst Normal corticomedullary differentiation and cortical thickness. Left kidney: Maximum dimension 13 cm. No evidence for hydronephrosis. Normal corticomedullary differ entiation and cortical thickness. Bladder: No bladder wall thickening. The bilateral ureteral jets were identified. IMPRESSION: 1. 4 cm lower pole right renal cyst. 2. Otherwise negative study. 3. No evidence for hydronephrosis. The above report was generated using voice recognition software. It may contain grammatical, syntax or spelling errors. Electronically signed by: Maxi Whitehead M.D. 06/06/2019 2:52 PM
--- NOTE | 2019-06-06 18:02 | Nephrology Consultation ---
Date of Consultation June 06, 2019 Assessment & Plan (1) JACQUIE (acute kidney injury): Baseline creatinine is less than 1 milligram/deciliter. Patient is nonoliguric. Blood pressure is low but acceptable. Volume status appears relatively euvolemic at this time. Rebecca is tolerating IV fluids. I would suggest continuing on maintenance IV fluid with Normosol or LR. Please document accurate input and output. Benítez remains intact at this time but this may be removed per protocol. Monitor metabolic profile every 24 hours. Clinical presentation suggestive of side effects of Revlimid therapy. Maintain high suspicion for possible underlying infection. Urine studies are concerning for possible urinary source. Cultures are pending. Current treatment includes ceftriaxone. He should have a low threshold for expanding antibiotic coverage given her immunocompromised state. JACQUIE may be explained by dense ATN in the setting of infection or pure volume depletion. However, I certainly cannot exclude relapse of multiple myeloma. The presentation does have concerning features. A 24 hour urine collection for protein electrophoresis and immunofixation has been requested. I have additionally requested repeat quantitative immunoglobulins as well as serum protein electrophoresis and immunofixation. Medications are appropriately dosed for kidney function. (2) Multiple myeloma: (3) Anemia: (4) Thrombocytopenia: History of Present Illness Reason for Consultation: Acute kidney injury Requesting Physician: Cornelio Law MD Attending Physician: Cornelio Law MD History of Present Illness Rebecca Fuller is a 68-year-old female with IgA lambda multiple myeloma. She has been maintained on Revlimid and had been tolerating therapy well. Rebecca was scheduled for upcoming evaluation at [facility] for possible stem cell transplant. Unfortunately, she has suffered a sudden change in health over Labor Day weekend. Over the holiday weekend the patient developed severe weakness. She describes persistent profound fatigue. This was accompanied by progressive nausea. She has suffered from intermittent vomiting since that time. Symptoms have been worsening over the course of the past week. This prompted her to come to the emergency department at [facility] yesterday. The patient was then transferred to [facility] for additional evaluation. Workup is notable for leukopenia/neutropenia, thrombocytopenia, elevated transaminases, and acute kidney injury. She was started on IV saline replacement for volume depletion. Creatinine continued to rise. Urinalysis was notable for 2+ protein, 2+ blood, 3+ leuk esterase. Urine microscopy demonstrated greater than 30 white blood cells as well as 5-10 red blood cells per high-power field. 4+ bacteria also noted. Cultures are pending. Renal ultrasound did not demonstrate any acute changes or evidence of hydronephrosis. Serum albumin is 2.0 with a total protein of 8.5. Baseline creatinine had been less than 1 mg/dL. Creatinine is now 5.14 mg/dL. Serum electrolytes are otherwise normal. Rebecca has had intermittent nausea and diarrhea associated with Revlimid in the past. She denies symptoms consistent with her current severity of illness. She has never had persistent GI symptoms such she has been experiencing for the past week. She denies any history of recurring urinary tract infections. She states that she felt she may have had a urinary tract infection that time her symptoms started. She describes some mild discomfort when voiding. She denies significant dysuria or pain. She denies any fevers or chills. Chandni was initially diagnosed with multiple myeloma during a hospitalization at [facility] in July of 2018. She presented with a pathologic rib fracture. Skeletal survey revealed innumerable lytic skeletal lesions and a destructive left fourth rib lesion with associated 3.1 x 1.5 cm enhancing pleural/extrapleural soft tissue component and numerous bilateral rib fractures. At that time, she received induction Revlimid, Velcade and dexamethasone. She responded well to treatment and Velcade and dexamethasone were weaned off. She denies any NSAID use. Oral intake has been poor. IV saline infusing at 125 ml/hr. Benítez catheter is draining bright yellow urine. Allergies Allergy/AdvReac Type Severity Reaction Status Date / Time ibuprofen AdvReac Tachycardia Unverified 08/08/18 14:02 Home Medications Home Medications Medication Instructions Recorded Confirmed Type aspirin [Vika Aspirin] 325 mg PO DAILY 08/08/18 08/08/18 History sertraline [Zoloft] 100 mg PO BID 08/08/18 08/08/18 History lidocaine 3 patch TRANSDERMAL QAM #10 ea 08/16/18 Rx oxycodone 10 mg PO Q6 PRN #12 tab 08/16/18 Rx Patient History Medical History Leukopenia Multiple myeloma History of TIA (transient ischemic attack) History of hysterectomy Mood disorder No known problems Social History Preferred Language: Fijian Communication Ability: Effective Visual Impairment: No Limitations Hearing Ability: Normal Freight Associate Required: No Beliefs That Will Affect Care: None Current Living Situation: Alone Current Living Situation Comment: lives with son Other Information That Helps Us Care for You: No Feels Safe at Home: Yes Safety Concerns: Feels Safe At This Time Smoking Status: Unknown if ever smoked Hx Alcohol Use: No Hx Substance Use: No Immunizations: 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 Her son within the past year at [facility] related complications from pulmonary emboli. She is a since 2010. She lives at home alone with her 2 small dogs. Review of Systems Review of Systems: All systems reviewed & are unremarkable except as noted in HPI & below Physical Exam Constitutional: well developed; no acute distress, + uncomfortable and not edematous Eyes: no scleral abnormality and no corneal abnormality ENMT: Mouth: no oral mucosal abnormality and oral mucous membranes not dry Neck: normal visual inspection and trachea midline Respiratory: normal respiratory effort Auscultation: lungs clear to auscultation bilaterally Cardiovascular: Rate/Rhythm: regular rate and regular rhythm Heart Sounds: normal S1 and normal S2 Vessels: no JVD Extremities: no edema Gastrointestinal (Abdomen): Percussion/Palpation: abdomen soft; abdomen nontender Musculoskeletal: Extremities: no cyanosis and no clubbing Skin: normal turgor; no lesions Neurologic: Motor/Sensory: no tremor and no asterixis Psychiatric: Orientation: alert and oriented x 3 Results & Data Vital Signs (Past 12 Hours) Vital Signs Temp Pulse Pulse Resp BP Pulse Ox 06/06/19 16:49 74 06/06/19 15:33 36.9 C 66 18 91/50 L 93 06/06/19 12:15 36.7 C 69 19 98/51 L 96 06/06/19 08:09 76 06/06/19 07:48 36.8 C 73 18 104/53 L 91 Laboratory Results Laboratory Results - last 24 hr 06/06/19 06/06/19 06/06/19 02:00 02:52 02:52 WBC RBC Hgb Hct MCV MCH MCHC RDW Std Deviation RDW Coeff of Kimberly Plt Count MPV Neutrophils % (Manual) Lymphocytes % (Manual) Monocytes % (Manual) Eosinophils % (Manual) Basophils % (Manual) Metamyelocytes % (Man) Myelocytes % (Man) Blast Cells % (Manual) Other Cells % Neutrophils # (Manual) Total Absolute Neuts Lymphocytes # (Manual) Total Abs Lymphocytes Monocytes # (Manual) Eosinophils # (Manual) Basophils # (Manual) Metamyelocytes # (Man) Myelocytes # (Manual) Blast Cells # (Man) Other Cells # Blood Smear Review RBC Morphology PT Cancelled INR Cancelled Sodium 137 Potassium Chloride 105 Carbon Dioxide 23 Anion Gap 9.0 BUN 54 H Creatinine 4.60 H* Est Cr Clr Drug Dosing 13.6 Est GFR ( Amer) 10.7 Est GFR (Non-Af Amer) 9.3 BUN/Creatinine Ratio 11.7 Glucose 83 Lactate Calcium 7.2 L Phosphorus 3.4 Magnesium Total Bilirubin 0.8 AST ALT 179 H Alkaline Phosphatase 49 Total Creatine Kinase Total Protein 8.5 H Albumin 2.0 L Globulin 6.5 H Albumin/Globulin Ratio 0.3 L Urine Color Yellow Urine Appearance Cloudy A Urine pH 6.0 Ur Specific Harvey 1.013 Urine Protein 2+ H Urine Glucose (UA) Negative Urine Ketones Negative Urine Blood 2+ H Urine Nitrite Negative Urine Bilirubin Negative Urine Urobilinogen Negative Ur Leukocyte Esterase 3+ H Urine WBC (Auto) >30 H Urine RBC (Auto) 5-10 H U Hyaline Cast (Auto) 1-5 U Epithel Cells (Auto) 0-5 Urine Bacteria (Auto) 4+ H Ur Random Creatinine Ur Random Sodium Hepatitis C Ab Screen 06/06/19 06/06/19 06/06/19 02:52 02:52 03:59 WBC RBC Hgb Hct MCV MCH MCHC RDW Std Deviation RDW Coeff of Kimberly Plt Count MPV Neutrophils % (Manual) Lymphocytes % (Manual) Monocytes % (Manual) Eosinophils % (Manual) Basophils % (Manual) Metamyelocytes % (Man) Myelocytes % (Man) Blast Cells % (Manual) Other Cells % Neutrophils # (Manual) Total Absolute Neuts Lymphocytes # (Manual) Total Abs Lymphocytes Monocytes # (Manual) Eosinophils # (Manual) Basophils # (Manual) Metamyelocytes # (Man) Myelocytes # (Manual) Blast Cells # (Man) Other Cells # Blood Smear Review RBC Morphology PT INR Sodium Potassium 3.6 Chloride Carbon Dioxide Anion Gap BUN Creatinine Est Cr Clr Drug Dosing Est GFR ( Amer) Est GFR (Non-Af Amer) BUN/Creatinine Ratio Glucose Lactate 1.1 Calcium Phosphorus Magnesium 1.5 L Total Bilirubin AST 321 H ALT Alkaline Phosphatase Total Creatine Kinase 100 Total Protein Albumin Globulin Albumin/Globulin Ratio Urine Color Urine Appearance Urine pH Ur Specific Harvey Urine Protein Urine Glucose (UA) Urine Ketones Urine Blood Urine Nitrite Urine Bilirubin Urine Urobilinogen Ur Leukocyte Esterase Urine WBC (Auto) Urine RBC (Auto) U Hyaline Cast (Auto) U Epithel Cells (Auto) Urine Bacteria (Auto) Ur Random Creatinine Ur Random Sodium Hepatitis C Ab Screen Neg 06/06/19 06/06/19 06/06/19 03:59 03:59 11:50 WBC 1.32 L 1.45 L RBC 2.64 L 2.79 L Hgb 8.9 L 9.5 L Hct 26.2 L 27.8 L MCV 99.2 99.6 MCH 33.7 34.1 H MCHC 34.0 34.2 RDW Std Deviation 62.2 H 62.5 H RDW Coeff of Kimberly 17.3 H 17.3 H Plt Count 38 L 36 L MPV 10.8 H 10.7 H Neutrophils % (Manual) 61.0 36.0 Lymphocytes % (Manual) 14.0 33.0 Monocytes % (Manual) 12.0 15.0 Eosinophils % (Manual) 3.0 1.0 Basophils % (Manual) 2.0 Metamyelocytes % (Man) 1.0 5.0 Myelocytes % (Man) 4.0 9.0 Blast Cells % (Manual) 1.0 Other Cells % 3.0 Neutrophils # (Manual) 0.81 L 0.52 L Total Absolute Neuts 0.81 L* 0.52 L* Lymphocytes # (Manual) 0.18 L 0.48 L Total Abs Lymphocytes 0.18 L 0.48 L Monocytes # (Manual) 0.16 0.22 Eosinophils # (Manual) 0.04 0.01 Basophils # (Manual) 0.03 Metamyelocytes # (Man) 0.01 H 0.07 H Myelocytes # (Manual) 0.05 H 0.13 H Blast Cells # (Man) 0.04 H 0.01 H Other Cells # 0.04 H Blood Smear Review RBC Morphology Unremarkable Unremarkable PT 15.8 H INR 1.6 H Sodium Potassium Chloride Carbon Dioxide Anion Gap BUN Creatinine Est Cr Clr Drug Dosing Est GFR ( Amer) Est GFR (Non-Af Amer) BUN/Creatinine Ratio Glucose Lactate Calcium Phosphorus Magnesium Total Bilirubin AST ALT Alkaline Phosphatase Total Creatine Kinase Total Protein Albumin Globulin Albumin/Globulin Ratio Urine Color Urine Appearance Urine pH Ur Specific Harvey Urine Protein Urine Glucose (UA) Urine Ketones Urine Blood Urine Nitrite Urine Bilirubin Urine Urobilinogen Ur Leukocyte Esterase Urine WBC (Auto) Urine RBC (Auto) U Hyaline Cast (Auto) U Epithel Cells (Auto) Urine Bacteria (Auto) Ur Random Creatinine Ur Random Sodium Hepatitis C Ab Screen 06/06/19 06/06/19 06/06/19 11:50 15:55 15:55 WBC RBC Hgb Hct MCV MCH MCHC RDW Std Deviation RDW Coeff of Kimberly Plt Count MPV Neutrophils % (Manual) Lymphocytes % (Manual) Monocytes % (Manual) Eosinophils % (Manual) Basophils % (Manual) Metamyelocytes % (Man) Myelocytes % (Man) Blast Cells % (Manual) Other Cells % Neutrophils # (Manual) Total Absolute Neuts Lymphocytes # (Manual) Total Abs Lymphocytes Monocytes # (Manual) Eosinophils # (Manual) Basophils # (Manual) Metamyelocytes # (Man) Myelocytes # (Manual) Blast Cells # (Man) Other Cells # Blood Smear Review RBC Morphology PT INR Sodium 137 Potassium 4.0 Chloride 104 Carbon Dioxide 21 Anion Gap 12.0 H BUN 57 H Creatinine 5.14 H* D Est Cr Clr Drug Dosing 12.2 Est GFR ( Amer) 9.4 Est GFR (Non-Af Amer) 8.1 BUN/Creatinine Ratio 11.1 Glucose 109 H Lactate Calcium 7.4 L Phosphorus Magnesium Total Bilirubin 0.6 AST 335 H ALT 192 H Alkaline Phosphatase 54 Total Creatine Kinase Total Protein 8.5 H Albumin 2.0 L Globulin 6.5 H Albumin/Globulin Ratio 0.3 L Urine Color Urine Appearance Urine pH Ur Specific Harvey Urine Protein Urine Glucose (UA) Urine Ketones Urine Blood Urine Nitrite Urine Bilirubin Urine Urobilinogen Ur Leukocyte Esterase Urine WBC (Auto) Urine RBC (Auto) U Hyaline Cast (Auto) U Epithel Cells (Auto) Urine Bacteria (Auto) Ur Random Creatinine 48.2 Ur Random Sodium Pending Hepatitis C Ab Screen PG Care Time/CCT Total # of Minutes Spent Total Time Spent with Patient: Total time spent is greater than 50% in coordination of care (as documented) at patient's floor/unit and/or counseling patient: (1) Multiple myeloma Multiple myeloma remission status: unspecified Qualified Code(s): C90.00 - Multiple myeloma not having achieved remission
[2019-06-06] MEDS: NORMOSOL-R 1,000 ML IV SCH (20:31)
[2019-06-07] MEDS: NORMOSOL-R 1,000 ML IV SCH ×3 (04:35→21:53)
[2019-06-07] MEDS: cefTRIAXone SODIUM 2,000 MG in DEXTROSE 5% 50 ML IV SCH (05:02)
--- NOTE | 2019-06-07 07:28 | Family Medicine Progress Note ---
Date of Service June 07, 2019 Assessment & Plan (1) JACQUIE (acute kidney injury): 68 year old female with PMH of multiple myeloma who presents to [facility] as a direct admission from [facility] due to acute kidney injury. PMH: recently diagnosed MM in Jul 2018 with multiple bony lytic lesions involving 4th left ribs, T9, T12 and L1 vertebrae, and calvarium, thrombocytopenia, anemia, hx of TIA x 3, right leg DVT and depression Acute Kidney Injury Prerenal v intrarenal v post renal v infection related -Creatinine level at [facility] 4.67, significant change from creatinine of 0.85 in 04/14. Has peaked at 5.16. Plan: -Nephrology consulted, appreciate recs. Pending: repeat quantitative immunoglobulins as well as serum protein electrophoresis and immunofixation - due to concern for MM relapse. -q24h BMP, following urinary output as well. -Post -- Renal US shows no obstruction, no hydronephrosis - not likely postrenal -Pre -- some element of nausea and vomiting per report, has been asymptomatic here. FeNa is >2% which argues against dehydration or hypoperfusion as etiology. -Avoiding all nephrotoxic medications, holding Revlimid. -E-lytes stable with exception of mild hypomagnesemia, repleted. -cont to monitor on telemetry Hypotension -pt remains afebrile, not tachycardic, and otherwise asymptomatic. -continue IV and PO hydration -HOLD home metoprolol -closely monitor Positive UA - negative Ucx -UA positive for blood, leukocyte esterase, white cells, bacteria -> Ucx NEG. and Blood cx so far NGTD. -cont to treat empirically with 2 g IV Rocephin daily, agree with low threshold to treat with broader coverage given imunosuppressed state. Multiple Myeloma -follows with Dr. Andersen, appreciate recommendations. Pending: complete myeloma panel including quantitative immunoglobulins, serum and urine (24-hour) protein electrophoresis with immunofixation as well as kappa/lambda light chain ratio. -H/o reatment with Revlimid -- currently holding due to concern for nephrotoxicity/ATN. On day of admission, pt was on day 4 of her 14 days of the medication. Has had several rounds. -also receiving once a month bisphosphonates Acute on chronic Pancytopenia -worsening pancytopenia could be related to MM vs. treatment with Revlimid - as above. -follow CBC, hold chem anticoagulation ppx in light of low plt. -Neupogen added per Heme/onc team Mild Transaminitis -AST 362 and ALT 164 -> increased from normal LFTs in 03/2019 -no RUQ pain, pt has had a prior cholecystectomy - RUQ U/S here shows fatty liver, otherwise normal. -follow LFTs H/o Right Leg DVT -diagnosed in April 2019 -holding lovenox given thrombocytopenia and JACQUIE Code status: FULL DVT Prophylaxis: SCDs, hold in the setting of thrombocytopenia Disposition: admitted to telemetry Other ongoing medical problems: Depression -continue home sertraline Hypertension -HOLD home metoprolol - as above (2) Nausea & vomiting: (3) Multiple myeloma: (4) History of TIA (transient ischemic attack): (5) Mood disorder: (6) Anemia: (7) Thrombocytopenia: Supervising Physician Co-Signing Physician Notes Attending attestation Pt seen and examined in concert with Dr. Rebolledo. In agreement with the documented findings as noted in the resident documentation with any exceptions or additions as noted here. Bowel movement today with considerable relief in overall abdominal discomfort. Now NT/ND BS+ve JACQUIE - nephrology consultation - maintenance hydration, monitoring and follow urine studies. US renal without apparent cause of JACQUIE. RUQ US without apparent cause of transaminitis. Consider further imaging w/ improvement of JACQUIE. Urinary tract infection - follow up UCx. Continue rocephin. Pancytopenia - trend CBC, holding chemo Multiple myeloma - oncology consultation appreciated - hold chemotherapy, follow up repeat labs for myeloma RLE DVT - holding lovenox 2/2 low plt. Monitor CBC for PLT ct Else see resident documentation as noted. Subjective sitting upright in bed, tolerating PO. Endorses no complaints. WBC is decreased, but pt does not endorse fevers or chills or new pain or difficulty breathing. Blood pressure is also decreased but pt does not endorse lightheadedness or pre- syncopal sensation. Benítez is draining clear yellow urine. Review of Systems Review of Systems: All systems reviewed & are unremarkable except as noted in HPI & below Physical Exam Physical Exam: Vitals noted and reviewed, as above GENERAL: no acute distress, conversant HEAD: normocephalic atraumatic ENT: sclerae normal, trachea midline RESP: normal work of breathing CV: regular rate and rhythm on telemetry ABDOMEN: nondistended SKIN: no rashes or jaundice PSYCH: appropriate mood and affect Results & Data Vital Signs (Past 12 Hours) Vital Signs Temp Pulse Pulse Resp BP Pulse Ox 06/07/19 03:00 36.5 C 73 20 90/53 L 94 06/07/19 01:30 71 06/06/19 23:00 36.7 C 89 18 89/44 L 94 06/06/19 19:34 37.0 C 78 19 108/54 L 93 Laboratory Results 06/07/19 06/07/19 06/07/19 Range/Units 06:50 06:50 06:50 WBC 0.95 L* (4.8-10.8) K/uL RBC 2.65 L (4.2-5.4) M/uL Hgb 8.9 L (12.0-16.0) g/dL Hct 26.2 L (37-47) % MCV 98.9 (80-100) fL MCH 33.6 (25-34) pg MCHC 34.0 (32-36) g/dL RDW Std Deviation 64.0 H (36.4-46.3) fL RDW Coeff of Kimberly 17.9 H (11.5-14.5) % Plt Count 25 L* (130-400) K/uL MPV 11.9 H (7.4-10.4) fL Neutrophils % (Manual) 65.6 % Lymphocytes % (Manual) 31.3 % Monocytes % (Manual) 3.1 % Neutrophils # (Manual) 0.62 L (1.4-6.5) K/uL Total Absolute Neuts 0.62 L* (1.4-6.5) K/uL Lymphocytes # (Manual) 0.30 L (1.2-3.4) K/uL Total Abs Lymphocytes 0.30 L (1.2-3.4) K/uL Monocytes # (Manual) 0.03 L (0.11-0.59) K/uL Platelet Estimate SIGNIFIC DECREASED (Normal) Rouleaux 2+ Sodium 139 (136-145) mmol/L Potassium 3.8 (3.5-5.1) mmol/L Chloride 108 H (98-107) mmol/L Carbon Dioxide 18 L (21-32) mmol/L Anion Gap 13.0 H (3-11) BUN 60 H (7-18) mg/dl Creatinine 5.16 H* (0.6-1.2) mg/dl Est Cr Clr Drug Dosing 12.4 ml/min Est GFR ( Amer) 9.4 Est GFR (Non-Af Amer) 8.1 BUN/Creatinine Ratio 11.7 (10-20) Glucose 84 (70-99) mg/dl Calcium 6.9 L (8.5-10.1) mg/dl Total Protein (PEP) Pending Albumin (PEP) Pending Xiloi-3-Mrbkxekdz Pending Lurdc-6-Mcjwieufp Pending Qjne-0-Psobhabn Pending Bqkc-3-Wkqewzop Pending Gamma Globulins Pending Monoclonal Peak 3 Pending Ser Monoclonl Protein Pending Ser Monoclonal Prot 2 Pending PEP Interpretation Pending Ur Random Creatinine mg/dl Ur Random Sodium mmol/L IgG 404.0 L (700-1600) mg/dl IgA 2660.0 H (70-400) mg/dl IgM 12.4 L (40-230) mg/dl Serum Immunofixation Pending Tot [place]/Lambda Ratio Pending [place] Light Chain Anal Pending Lambda Light Chain Anal Pending 06/06/19 06/06/19 Range/Units 15:55 15:55 WBC (4.8-10.8) K/uL RBC (4.2-5.4) M/uL Hgb (12.0-16.0) g/dL Hct (37-47) % MCV (80-100) fL MCH (25-34) pg MCHC (32-36) g/dL RDW Std Deviation (36.4-46.3) fL RDW Coeff of Kimberly (11.5-14.5) % Plt Count (130-400) K/uL MPV (7.4-10.4) fL Neutrophils % (Manual) % Lymphocytes % (Manual) % Monocytes % (Manual) % Neutrophils # (Manual) (1.4-6.5) K/uL Total Absolute Neuts (1.4-6.5) K/uL Lymphocytes # (Manual) (1.2-3.4) K/uL Total Abs Lymphocytes (1.2-3.4) K/uL Monocytes # (Manual) (0.11-0.59) K/uL Platelet Estimate (Normal) Rouleaux Sodium (136-145) mmol/L Potassium (3.5-5.1) mmol/L Chloride (98-107) mmol/L Carbon Dioxide (21-32) mmol/L Anion Gap (3-11) BUN (7-18) mg/dl Creatinine (0.6-1.2) mg/dl Est Cr Clr Drug Dosing ml/min Est GFR ( Amer) Est GFR (Non-Af Amer) BUN/Creatinine Ratio (10-20) Glucose (70-99) mg/dl Calcium (8.5-10.1) mg/dl Total Protein (PEP) Albumin (PEP) Hdtlp-8-Gvbhtidaq Leekk-6-Jqaojvimt Htsg-7-Obyanuuc Chkb-7-Zlyypdru Gamma Globulins Monoclonal Peak 3 Ser Monoclonl Protein Ser Monoclonal Prot 2 PEP Interpretation Ur Random Creatinine 48.2 mg/dl Ur Random Sodium 76 mmol/L IgG (700-1600) mg/dl IgA (70-400) mg/dl IgM (40-230) mg/dl Serum Immunofixation Tot [place]/Lambda Ratio [place] Light Chain Anal Lambda Light Chain Anal Medications Administered Current Inpatient Medications Acetaminophen (Tylenol) 650 mg PO Q4H PRN PRN Reason: Moderate Pain Stop: 07/05/19 17:23 Last Admin: 06/06/19 20:30 Dose: 650 mg Documented by: Filgrastim (Neupogen) 480 mcg SQ DAILY [facility] Stop: 07/07/19 08:59 Last Admin: 06/07/19 12:38 Dose: Not Given Documented by: Ceftriaxone Sodium 2,000 mg/ (Dextrose) 70 mls @ 100 mls/hr IV Q24H [facility]; Protocol Stop: 06/11/19 05:59 Last Infusion: 06/07/19 05:45 Dose: Infused Documented by: Parenteral Electrolytes (Normosol-R) 1,000 mls @ 125 mls/hr IV .Q8H [facility] Stop: 07/06/19 19:59 Last Admin: 06/07/19 12:39 Dose: 125 mls/hr Documented by: Metoprolol Tartrate (Lopressor) 25 mg PO BID [facility] Stop: 07/06/19 08:59 Last Admin: 06/07/19 08:34 Dose: 25 mg Documented by: Ondansetron HCl (Zofran) 4 mg IV Q4H PRN PRN Reason: Nausea And Vomiting Stop: 07/05/19 17:23 Sertraline HCl (Zoloft) 100 mg PO BID JOVANY Stop: 07/06/19 08:59 Last Admin: 06/07/19 08:35 Dose: 100 mg Documented by: PG Care Time/CCT Total # of Minutes Spent Total Time Spent with Patient: Total time spent is greater than 50% in coordination of care (as documented) at patient's floor/unit and/or counseling patient: Resident Activity Tracking Resident Involvement: Resident Care Provided Care Provided: Adult Hospital Medicine (1) Multiple myeloma Multiple myeloma remission status: unspecified Qualified Code(s): C90.00 - Multiple myeloma not having achieved remission
[2019-06-07 07:58] LABS: Hematocrit (blood only) 26.2 % (37-47); Hemoglobin 8.9 g/dL (12.0-16.0); Mean Corpuscular Volume 98.9 fL (80-100); Mean Platelet Volume 11.9 fL (7.4-10.4); Platelet Count 25 K/uL (130-400); RDW Coefficient of Variation 17.9 % (11.5-14.5); Red Blood Count 2.65 M/uL (4.2-5.4); White Blood Count 0.95 K/uL (4.8-10.8)
[2019-06-07 08:05] LABS: BUN Creatinine Ratio 11.7 (10-20); Calcium 6.9 mg/dl (8.5-10.1); Creatinine Clr Calc Pharmacy 12.4 ml/min; Est GFR (African American) 9.4; Est GFR (Non-African American) 8.1; Potassium 3.8 mmol/L (3.5-5.1)
[2019-06-07 08:14] LABS: Platelet Estimate SIGNIFIC DECREASED (Normal); Rouleaux 2+
[2019-06-07 08:31] LABS: Immunoglobulin M 12.4 mg/dl (40-230)
[2019-06-07] MEDS: METOPROLOL TARTRATE 25 MG TAB PO SCH (08:34)
[2019-06-07] MEDS: SERTRALINE HCL 100 MG TABLET PO SCH ×2 (08:35→20:06)
[2019-06-07 08:50] LABS: Lymphocytes % (manual) 31.3 %; Monocytes # (manual) 0.03 K/uL (0.11-0.59); Monocytes % (manual) 3.1 %; Neutrophils % (manual) 65.6 %
[2019-06-07] MEDS ORDERED: FILGRASTIM 480 MCG/1.6 ML VIAL SQ SCH (09:00)
--- NOTE | 2019-06-07 10:54 | Ultrasound Report ---
US abdomen limited HISTORY: Abnormal liver function tests LFT, JACQUIE for underlying liver abnormality. COMPARISON: Renal ultrasound 06/06/2019 FINDINGS: Pancreas: The pancreas demonstrates a normal echotexture. Liver: Fatty infiltration. Gallbladder: Surgically absent CBD: 5 mm Right kidney: Stable lower pole right renal cyst. No evidence for hydronephrosis. IMPRESSION: 1. Fatty replacement of the liver.. 2. Stable right renal cyst. 3. Otherwise negative study post cholecystectomy. The above report was generated using voice recognition software. It may contain grammatical, syntax or spelling errors. Electronically signed by: Maxi Whitehead M.D. 06/07/2019 10:52 AM
--- NOTE | 2019-06-07 11:21 | Progress Note ---
DATE: 06/07/2019 HEMATOLOGY PROGRESS NOTE DIAGNOSES: 1. Acute renal injury. 2. Elevated liver transaminases. 3. Nausea and vomiting. 4. IgA lambda multiple myeloma. 5. Pancytopenia. 6. Right lower extremity deep vein thrombosis by history. SUBJECTIVE: Rebecca was seen and examined at bedside today. She is feeling a little bit better. Definitely troubled by her current clinical picture. This patient has been on therapy for in excess of 8 months now and had no difficulties and actually is heading towards autologous peripheral blood stem cell transplant. She was on day #4 of Revlimid at time of admission which she was given as monotherapy. I discontinued Velcade and dexamethasone previously. She has no overt history of liver disease, but nonetheless should investigate her liver perhaps by ultrasound moving forward. She has no specific complaints today. She is currently collecting 24-hour urine sample for monoclonality. Nursing reports no overnight difficulties. PHYSICAL EXAMINATION GENERAL: A pleasant 68-year-old morbidly obese female in no acute distress. VITAL SIGNS: Temperature 36.6, pulse 72, respiratory rate 18, blood pressure 103/63. SKIN: Without rash or lesion. HEENT: Oral mucosa without erythema or ulceration. HEART: Regular rate and rhythm. LUNGS: Clear to auscultation bilaterally. ABDOMEN: Soft, nontender, nondistended. EXTREMITIES: No clubbing, cyanosis or edema. NEUROLOGICAL: Grossly intact. LABORATORY DATA: WBC count 950, hemoglobin 8.9, platelet count 25,000. Absolute neutrophil count 520. She also has some immaturity in the white cell differential metamyelocytes, myelocytes and a few blasts. Sodium 139, potassium 3.8, chloride 108, carbon dioxide 18, creatinine 5.16, AST 335, ALT 192, albumin 2. IMPRESSION: 1. Possible hepatorenal syndrome. 2. Emerging immaturity in the peripheral blood suggestive of leukemic process. 3. Pancytopenia. 4. Elevated liver transaminases. 5. Hypoalbuminemia. PLAN: Rebecca is a pleasant 68-year-old female patient well known to me with IgA lambda multiple myeloma. The patient was diagnosed back in July and doing exceedingly well actually heading towards autologous peripheral blood stem cell transplant. Her liver transaminases and creatinine have acutely elevated and thus suspect she has an underlying hepatorenal syndrome. Hepatorenal renal syndromes occur usually in the setting of occult metastatic disease versus acute liver disorder. Would focus more on the liver at this point and perhaps pursue ultrasound as a CT scan is not practical as the patient cannot receive IV contrast. A little troubled by the emerging immaturity in the peripheral blood. We will have Yaquelin Lion, hematopathologist take a look at her peripheral smear today. I did start the patient on empiric Neupogen, want to progress carefully as this may result in leukemic expansion. If there is evidence she has an acute leukemia, perhaps plasma cell leukemia which is exceedingly rare, I would advocate transferring her to a tertiary center. We will follow along closely with you.
[2019-06-07] MEDS ORDERED: SODIUM CHLORIDE 0.9% 1000ML 500 ML IV ONE ×2 (12:23→13:37)
--- NOTE | 2019-06-07 15:20 | Nephrology Progress Note ---
Date of Service June 07, 2019 Assessment & Plan (1) JACQUIE (acute kidney injury): Baseline creatinine is less than 1 milligram/deciliter. Patient is nonoliguric. Blood pressure is low but acceptable. Volume status appears relatively euvolemic at this time. Rebecca is tolerating IV fluids. I would suggest continuing on maintenance IV fluid at this time. Creatinine remains notably elevated but relatively stable. Electrolytes are acceptable at this time. Clinical presentation suggestive of side effects of Revlimid therapy. Maintain high suspicion for possible underlying infection or recurrent multiple myeloma but at this time cannot exclude a new hematologic disorder. Urine findings, notably the urine sodium do not support acute hepatorenal syndrome. Review of peripheral smear is pending; there are concerning features on CBC diff including blasts. I cannot completely exclude a new infiltrative process at this time. Metabolic profile with phosphorus as well as a serum UA level will be repeated today. Close prospective monitoring will be provided. Urine culture was polymicrobial. There has not been stigmata of infection otherwise. She remains on ceftriaxone. JACQUIE may be explained by dense ATN in the setting of infection or pure volume depletion. 24 hour urine collection for protein electrophoresis and immunofixation is in process. I Medications are appropriately dosed for kidney function. (2) Multiple myeloma: (3) Anemia: (4) Thrombocytopenia: Subjective No acute events overnight. Rebecca is understandably anxious but otherwise feels well. She denies any GI symptoms. She is breathing comfortably. She does not have any urinary symptoms at this time. She denies any fevers or chills. Review of Systems Review of Systems: All systems reviewed & are unremarkable except as noted in HPI & below Physical Exam Constitutional: well developed; no acute distress and not edematous Eyes: no scleral abnormality and no corneal abnormality ENMT: Mouth: no oral mucosal abnormality and oral mucous membranes not dry Neck: normal visual inspection and trachea midline Respiratory: normal respiratory effort Auscultation: lungs clear to auscultation bilaterally Cardiovascular: Rate/Rhythm: regular rate and regular rhythm Heart Sounds: normal S1 and normal S2 Vessels: no JVD Extremities: no edema Gastrointestinal (Abdomen): Percussion/Palpation: abdomen soft; abdomen nontender Musculoskeletal: Extremities: no cyanosis and no clubbing Skin: normal turgor; no lesions Neurologic: Motor/Sensory: no tremor and no asterixis Psychiatric: Orientation: alert and oriented x 3 Results & Data Vital Signs (Past 12 Hours) Vital Signs Temp Pulse Pulse Resp BP BP BP 06/07/19 14:23 76 24 92/53 L 06/07/19 13:06 62 23 93/55 L 06/07/19 12:53 83 18 101/59 L 06/07/19 12:31 61 18 82/47 L 06/07/19 11:46 36.4 C L 77 17 82/50 L 77/45 L 06/07/19 08:00 66 06/07/19 07:29 36.6 C 72 18 103/63 Pulse Ox 06/07/19 14:23 06/07/19 13:06 06/07/19 12:53 06/07/19 12:31 06/07/19 11:46 92 06/07/19 08:00 06/07/19 07:29 93 Laboratory Results Laboratory Results - last 24 hr 06/06/19 06/06/19 06/07/19 15:55 15:55 06:50 WBC RBC Hgb Hct MCV MCH MCHC RDW Std Deviation RDW Coeff of Kimberly Plt Count MPV Neutrophils % (Manual) Lymphocytes % (Manual) Monocytes % (Manual) Neutrophils # (Manual) Total Absolute Neuts Lymphocytes # (Manual) Total Abs Lymphocytes Monocytes # (Manual) Platelet Estimate Rouleaux Sodium Potassium Chloride Carbon Dioxide Anion Gap BUN Creatinine Est Cr Clr Drug Dosing Est GFR ( Amer) Est GFR (Non-Af Amer) BUN/Creatinine Ratio Glucose Calcium Total Protein (PEP) Pending Albumin (PEP) Pending Wlntf-5-Urgcxrtiv Pending Xyhar-8-Ytxdiudct Pending Orpi-9-Wuawctjj Pending Yvsg-6-Xnatxdup Pending Gamma Globulins Pending Monoclonal Peak 3 Pending Ser Monoclonl Protein Pending Ser Monoclonal Prot 2 Pending PEP Interpretation Pending Ur Random Creatinine 48.2 Ur Random Sodium 76 IgG IgA IgM Serum Immunofixation Pending Tot [place]/Lambda Ratio Pending [place] Light Chain Anal Pending Lambda Light Chain Anal Pending 06/07/19 06/07/19 06:50 06:50 WBC 0.95 L* RBC 2.65 L Hgb 8.9 L Hct 26.2 L MCV 98.9 MCH 33.6 MCHC 34.0 RDW Std Deviation 64.0 H RDW Coeff of Kimberly 17.9 H Plt Count 25 L* MPV 11.9 H Neutrophils % (Manual) 65.6 Lymphocytes % (Manual) 31.3 Monocytes % (Manual) 3.1 Neutrophils # (Manual) 0.62 L Total Absolute Neuts 0.62 L* Lymphocytes # (Manual) 0.30 L Total Abs Lymphocytes 0.30 L Monocytes # (Manual) 0.03 L Platelet Estimate SIGNIFIC DECREASED Rouleaux 2+ Sodium 139 Potassium 3.8 Chloride 108 H Carbon Dioxide 18 L Anion Gap 13.0 H BUN 60 H Creatinine 5.16 H* Est Cr Clr Drug Dosing 12.4 Est GFR ( Amer) 9.4 Est GFR (Non-Af Amer) 8.1 BUN/Creatinine Ratio 11.7 Glucose 84 Calcium 6.9 L Total Protein (PEP) Albumin (PEP) Dmesp-8-Epzwdrgmt Htnlf-7-Brsuwifdf Hmrv-2-Pgnddcas Tqcc-9-Hdmrkvwe Gamma Globulins Monoclonal Peak 3 Ser Monoclonl Protein Ser Monoclonal Prot 2 PEP Interpretation Ur Random Creatinine Ur Random Sodium IgG 404.0 L IgA 2660.0 H IgM 12.4 L Serum Immunofixation Tot [place]/Lambda Ratio [place] Light Chain Anal Lambda Light Chain Anal PG Care Time/CCT Total # of Minutes Spent Total Time Spent with Patient: Total time spent is greater than 50% in coordination of care (as documented) at patient's floor/unit and/or counseling patient: (1) Multiple myeloma Multiple myeloma remission status: unspecified Qualified Code(s): C90.00 - Multiple myeloma not having achieved remission
[2019-06-08] MEDS: NORMOSOL-R 1,000 ML IV SCH (06:17)
[2019-06-08] MEDS: cefTRIAXone SODIUM 2,000 MG in DEXTROSE 5% 50 ML IV SCH (06:26)
[2019-06-08 06:57] LABS: Hematocrit (blood only) 25.1 % (37-47); Hemoglobin 8.4 g/dL (12.0-16.0); Mean Corpuscular Hgb Conc 33.5 g/dL (32-36); Mean Corpuscular Volume 98.8 fL (80-100); Mean Platelet Volume 11.1 fL (7.4-10.4); Platelet Count 15 K/uL (130-400); RDW Coefficient of Variation 18.3 % (11.5-14.5); RDW Standard Deviation 65.1 fL (36.4-46.3); Red Blood Count 2.54 M/uL (4.2-5.4); White Blood Count 1.01 K/uL (4.8-10.8)
[2019-06-08 07:15] LABS: Basophils # (auto) 0.01 K/uL (0-0.2); Eosinophils # (auto) 0.01 K/uL (0-0.5); Immature Granulocytes # (auto) 0.07 K/uL (0.00-0.02); Immature Granulocytes % (auto) 6.9 %; Lymphocytes # (auto) 0.42 K/uL (1.2-3.4); Lymphocytes % (auto) 41.6 %; Monocytes # (auto) 0.18 K/uL (0.11-0.59); Monocytes % (auto) 17.8 %; Neutrophils # (auto) 0.32 K/uL (1.4-6.5); Neutrophils % (auto) 31.7 %; Rouleaux 2+
[2019-06-08 07:27] LABS: BUN Creatinine Ratio 11.8 (10-20); Calcium 6.5 mg/dl (8.5-10.1); Creatinine Clr Calc Pharmacy 12.7 ml/min; Est GFR (African American) 9.5; Est GFR (Non-African American) 8.2; Potassium 3.9 mmol/L (3.5-5.1)
--- NOTE | 2019-06-08 08:19 | Progress Note ---
DATE: 06/08/2019 HEMATOLOGY PROGRESS NOTE DIAGNOSES: 1. Acute renal injury. 2. Elevated liver transaminases. 3. Nausea and vomiting. 4. IgA lambda multiple myeloma. 5. Pancytopenia. 6. Right lower extremity deep vein thrombosis by history. SUBJECTIVE: Rebecca was again seen and examined at bedside. She reports no fever or chills overnight. Interestingly, yesterday there was immaturity on peripheral smear, today it does not seem to be the case. Originally, I was planning to administer Neupogen, but when I saw the immaturity, decided to hold off. Her overt renal failure is unexplained. I am less inclined to believe a drug effect as this patient has been on therapy for several months. Presently, a 24-hour urine sample for monoclonality is pending. Cultures thus far have been negative; however, I am not sure if urine has been re-submitted per request. Nursing reports no overnight difficulties otherwise. OBJECTIVE: GENERAL: A very pleasant 68-year-old female, in no acute distress. VITAL SIGNS: Temperature 36.7, pulse 87, respiratory rate 20, blood pressure 104/66. SKIN: Without rash or lesion. HEENT: Oral mucosa without erythema or ulceration. HEART: Regular rate and rhythm. LUNGS: Clear to auscultation. ABDOMEN: Soft, nontender, nondistended. EXTREMITIES: No clubbing, cyanosis or edema. NEUROLOGIC: Grossly intact. LABORATORY DATA: WBC count 1000, hemoglobin 8.4, platelet count 15,000, absolute neutrophil count 320. Sodium 140, potassium 3.9, chloride 108, carbon dioxide 18, BUN 60, creatinine 5.09. Again, myeloma panel is pending. RADIOGRAPHIC DATA: Ultrasound of the abdomen reveals fatty replacement of the liver, stable right renal cyst. IMPRESSION: 1. Nonalcoholic steatotic hepatitis. 2. Acute renal injury. 3. Pancytopenia. 4. IgA lambda multiple myeloma. 5. Elevated liver transaminases. 6. Hypoalbuminemia. PLAN: Rebecca is a pleasant 68-year-old female patient well known to me, currently under treatment for IgA lambda multiple myeloma. Again, she has been on treatment for several months and actually was responding well. There were really no significant toxicities encountered. Yesterday's peripheral smear suggests that she was developing some immature forms. I initially was going to administer Neupogen, but when I saw the immaturity, decided to abort. We will have hematopathology review her smear today. Obviously, I am concerned that she may be developing an acute leukemia, perhaps plasma cell leukemias are inherently rare but certainly possible in this case. If there is further evidence, would again advocate transferring her to a tertiary center. Clinically, she seems to be holding her own. Again, cultures were reviewed and are negative thus far. Her case remains somewhat of a mystery. We will continue to follow her regularly. Thank you for assisting me in caring for this nice elderly patient.
--- NOTE | 2019-06-08 09:27 | Nephrology Progress Note ---
Date of Service June 08, 2019 Assessment & Plan (1) JACQUIE (acute kidney injury): Baseline creatinine is less than 1 milligram/deciliter. Patient is nonoliguric. Blood pressure is low but acceptable. Volume status appears remains euvolemic. Rebecca is tolerating IV fluids. Oral intake acceptable. IWill stop mIVF. Benítez catheter to be removed today as well. Creatinine remains elevated but stable. Electrolytes are acceptable. Clinical presentation suggestive of side effects of Revlimid therapy. Maintain high suspicion for possible underlying infection or recurrent multiple myeloma but at this time cannot exclude a new hematologic disorder. Peripheral smear pending. 24 hour urine SPEP/immunofix pending. Urine culture was polymicrobial. There has not been stigmata of infection otherwise. She remains on ceftriaxone. JACQUIE may be explained by dense ATN in the setting of infection or pure volume depletion. 24 hour urine collection for protein electrophoresis and immunofixation is in process. Medications are appropriately dosed for kidney function. (2) Multiple myeloma: (3) Anemia: (4) Thrombocytopenia: Subjective No acute events overnight. Emotional this morning. Rebecca expressed some frustrations. She stated that she is not sure that she would pursue additional treatment for cancer at this time. Review of Systems Review of Systems: All systems reviewed & are unremarkable except as noted in HPI & below Physical Exam Constitutional: well developed; no acute distress Eyes: no scleral abnormality and no corneal abnormality ENMT: Mouth: no oral mucosal abnormality and oral mucous membranes not dry Neck: normal visual inspection and trachea midline Respiratory: normal respiratory effort Auscultation: lungs clear to auscultation bilaterally Cardiovascular: Rate/Rhythm: regular rate and regular rhythm Heart Sounds: normal S1 and normal S2 Vessels: no JVD Extremities: + edema (trace LE) Gastrointestinal (Abdomen): Percussion/Palpation: abdomen soft; abdomen nontender Musculoskeletal: Extremities: no cyanosis and no clubbing Skin: normal turgor; no lesions Neurologic: Motor/Sensory: no tremor and no asterixis Psychiatric: Orientation: alert and oriented x 3 Results & Data Vital Signs (Past 12 Hours) Vital Signs Temp Pulse Pulse Resp BP Pulse Ox 06/08/19 08:12 36.5 C 71 19 102/54 L 93 06/08/19 04:00 36.7 C 87 20 104/66 94 06/08/19 00:00 69 06/07/19 23:00 36.6 C 75 19 111/72 94 PG Care Time/CCT Total # of Minutes Spent Total Time Spent with Patient: Total time spent is greater than 50% in coordination of care (as documented) at patient's floor/unit and/or counseling patient: (1) Multiple myeloma Multiple myeloma remission status: unspecified Qualified Code(s): C90.00 - Multiple myeloma not having achieved remission
[2019-06-08] MEDS: SERTRALINE HCL 100 MG TABLET PO SCH ×2 (09:42→21:23)
--- NOTE | 2019-06-08 10:26 | Family Medicine Progress Note ---
Date of Service June 08, 2019 Assessment & Plan (1) JACQUIE (acute kidney injury): 68 year old female with PMH of multiple myeloma who presents to [facility] as a direct admission from [facility] due to acute kidney injury. PMH: recently diagnosed MM in Jul 2018 with multiple bony lytic lesions involving 4th left ribs, T9, T12 and L1 vertebrae, and calvarium, thrombocytopenia, anemia, hx of TIA x 3, right leg DVT and depression Acute Kidney Injury -Creatinine level at [facility] 4.67, significant change from creatinine of 0.85 in 04/14. Has peaked at 5.16. -myeloma kidney vs new leukemia/myelodisplasia 2/2 chemotherapeutics, etc. Plan: -Nephrology consulted, appreciate recs. Pending: repeat quantitative immunoglobulins as well as serum protein electrophoresis and immunofixation - due to concern for MM relapse. -q24h BMP, following urinary output as well. -Post -- Renal US shows no obstruction, no hydronephrosis - not likely postrenal -Pre -- some element of nausea and vomiting per report, has been asymptomatic here. FeNa is >2% which argues against dehydration or hypoperfusion as etiology. -Avoiding all nephrotoxic medications, holding Revlimid. -E-lytes stable with exception of mild hypomagnesemia, repleted. -holding fluids for now as kidney function has stabilized - adriano hood Hypotension -resolved -continue to HOLD home metoprolol Positive UA - negative Ucx -UA positive for blood, leukocyte esterase, white cells, bacteria -> Ucx NEG. and Blood cx so far NGTD. -cont to treat empirically with 2 g IV Rocephin daily, agree with low threshold to treat with broader coverage given imunosuppressed state. Multiple Myeloma -follows with Dr. Andersen, appreciate recommendations. Pending: complete myeloma panel including quantitative immunoglobulins, serum and urine (24-hour) protein electrophoresis with immunofixation as well as kappa/lambda light chain ratio. -H/o reatment with Revlimid -- currently holding due to concern for nephrotoxi city/ATN. On day of admission, pt was on day 4 of her 14 days of the medication. Has had several rounds. Acute on chronic Pancytopenia -worsening pancytopenia could be related to MM vs. treatment with Revlimid - as above. -follow CBC, hold chem anticoagulation ppx in light of low plt. -precautions as appropriate -Neupogen added per Heme/onc team. -12Sept - 1 bag platelet transfused. Mild Transaminitis -AST 362 and ALT 164 -> increased from normal LFTs in 03/2019 -no RUQ pain, pt has had a prior cholecystectomy - RUQ U/S here shows fatty angie er, otherwise normal. -follow LFTs H/o Right Leg DVT -diagnosed in April 2019 -holding lovenox given thrombocytopenia and JACQUIE Code status: FULL DVT Prophylaxis: SCDs, hold in the setting of thrombocytopenia Disposition: admitted to telemetry Other ongoing medical problems: Depression -continue home sertraline Hypertension -HOLD home metoprolol - as above (2) Nausea & vomiting: (3) Multiple myeloma: (4) History of TIA (transient ischemic attack): (5) Mood disorder: (6) Anemia: (7) Thrombocytopenia: Supervising Physician Co-Signing Physician Notes Attending attestation Pt seen and examined in concert with Dr. Rebolledo. In agreement with the documented findings as noted in the resident documentation with any exceptions or additions as noted here. Complaint of feeling down briefly because still admitted despite feeling at baseline. On examination, S1/S2 nl RRR no MCG. CTAB. Abd NT/ND BS+ve. 1+ pitting edema b/l to the midshin JACQUIE - nephrology consultation - d/c IV hydration, follow urine studies Urinary tract infection - follow up UCx. Continue rocephin. Pancytopenia - trend CBC, holding chemo, s/p neupogen. Transfused 1 x platelets today Multiple myeloma - oncology consultation appreciated - hold chemotherapy, follow up repeat labs for myeloma RLE DVT - holding lovenox 2/2 low plt. Monitor CBC for PLT ct Else see resident documentation as noted. Subjective Patient feeling somewhat down today. Examined her at the bedside with nephrology. Otherwise ambulating about the room without difficulty, tolerating PO. Expresses some desire to simply "go home". Review of Systems Review of Systems: All systems reviewed & are unremarkable except as noted in HPI & below Physical Exam Physical Exam: Vitals noted and within normal limits GENERAL: Awake, alert to person, place, and time, in no distress. HENT: Normocephalic, atraumatic. Mucus membranes appear moist. EYES: Normal conjunctiva. Sclera non-icteric. EOMI. NECK: Supple. Full range of motion. RESPIRATORY: Clear to auscultation. Normal work of breathing. CARDIAC: Regular rate, normal rhythm. Extremities warm and well perfused, ABDOMEN: Soft, non-distended. Bowel sounds are normal. LOWER EXTREMITIES: Inspection of calves reveal equal size bilaterally. Trace edema. NEURO: No gross focal motor deficits noted. Sensation in tact. CN II-XII grossly in tact. . SKIN: Rash not present. No jaundice noted. Significant lesions not present. PSYCH: Appropriate mood and affect. Cooperative. Exam as done by Abril Rebolledo MD, Installation & Maintenance Executive. Results & Data Vital Signs (Past 12 Hours) Vital Signs Temp Pulse Pulse Resp BP Pulse Ox 06/08/19 08:12 36.5 C 71 19 102/54 L 93 06/08/19 04:00 36.7 C 87 20 104/66 94 06/08/19 00:00 69 06/07/19 23:00 36.6 C 75 19 111/72 94 Laboratory Results 06/08/19 06/08/19 06/08/19 Range/Units 15:30 06:12 06:12 WBC 1.01 L (4.8-10.8) K/uL RBC 2.54 L (4.2-5.4) M/uL Hgb 8.4 L (12.0-16.0) g/dL Hct 25.1 L (37-47) % MCV 98.8 (80-100) fL MCH 33.1 (25-34) pg MCHC 33.5 (32-36) g/dL RDW Std Deviation 65.1 H (36.4-46.3) fL RDW Coeff of Kimberly 18.3 H (11.5-14.5) % Plt Count 15 L* (130-400) K/uL MPV 11.1 H (7.4-10.4) fL Immature Gran % (Auto) 6.9 % Neut % (Auto) 31.7 % Lymph % (Auto) 41.6 % [place] % (Auto) 17.8 % Eos % (Auto) 1.0 % Baso % (Auto) 1.0 % Immature Gran # (Auto) 0.07 H (0.00-0.02) K/uL Neut # (Auto) 0.32 L* (1.4-6.5) K/uL Lymph # (Auto) 0.42 L (1.2-3.4) K/uL [place] # (Auto) 0.18 (0.11-0.59) K/uL Eos # (Auto) 0.01 (0-0.5) K/uL Baso # (Auto) 0.01 (0-0.2) K/uL Rouleaux 2+ Peripher Smr Path Cons Sodium 140 (136-145) mmol/L Potassium 3.9 (3.5-5.1) mmol/L Chloride 108 H (98-107) mmol/L Carbon Dioxide 18 L (21-32) mmol/L Anion Gap 14.0 H (3-11) BUN 60 H (7-18) mg/dl Creatinine 5.09 H* (0.6-1.2) mg/dl Est Cr Clr Drug Dosing 12.7 ml/min Est GFR ( Amer) 9.5 Est GFR (Non-Af Amer) 8.2 BUN/Creatinine Ratio 11.8 (10-20) Glucose 87 (70-99) mg/dl Calcium 6.5 L (8.5-10.1) mg/dl Urine Color Yellow Urine Appearance Clear (Clear) Urine pH 5.5 (4.5-7.5) Ur Specific [place] 1.014 (1.000-1.030) Urine Protein 1+ H (Negative) Urine Glucose (UA) Negative (Negative) Urine Ketones Negative (Negative) Urine Blood 2+ H (Negative) Urine Nitrite Negative (Negative) Urine Bilirubin Negative (Negative) Urine Urobilinogen Negative (Negative) Ur Leukocyte Esterase Trace H (Negative) Urine WBC (Auto) 1-5 (0-5) /hpf Urine RBC (Auto) 0-4 (0-4) /hpf U Hyaline Cast (Auto) 0 (0-5) /lpf U Epithel Cells (Auto) 5-10 H (0-5) /lpf Urine Bacteria (Auto) Negative (Negative) Medications Administered Current Inpatient Medications Acetaminophen (Tylenol) 650 mg PO Q4H PRN PRN Reason: Moderate Pain Stop: 07/05/19 17:23 Last Admin: 06/06/19 20:30 Dose: 650 mg Documented by: Filgrastim (Neupogen) 480 mcg SQ DAILY JOVANY Stop: 07/07/19 08:59 Last Admin: 06/07/19 12:38 Dose: Not Given Documented by: Ceftriaxone Sodium 2,000 mg/ (Dextrose) 70 mls @ 100 mls/hr IV Q24H [facility]; Protocol Stop: 06/11/19 05:59 Last Infusion: 06/08/19 07:12 Dose: Infused Documented by: Metoprolol Tartrate (Lopressor) 25 mg PO BID [facility] Stop: 07/06/19 08:59 Last Admin: 06/07/19 08:34 Dose: 25 mg Documented by: Ondansetron HCl (Zofran) 4 mg IV Q4H PRN PRN Reason: Nausea And Vomiting Stop: 07/05/19 17:23 Sertraline HCl (Zoloft) 100 mg PO BID [facility] Stop: 07/06/19 08:59 Last Admin: 06/08/19 09:42 Dose: 100 mg Documented by: PG Care Time/CCT Total # of Minutes Spent Total Time Spent with Patient: Total time spent is greater than 50% in coordination of care (as documented) at patient's floor/unit and/or counseling patient: Resident Activity Tracking Resident Involvement: Resident Care Provided Care Provided: Adult Hospital Medicine (1) Multiple myeloma Multiple myeloma remission status: unspecified Qualified Code(s): C90.00 - Multiple myeloma not having achieved remission
[2019-06-08 16:07] LABS: Appearance Urine Clear (Clear); Bacteria Urine Automated Negative (Negative); Bilirubin Urine Negative (Negative); Blood Urine 2+ (Negative); Cast Urine Automated 0 /lpf (0-5); Color Urine Yellow; Glucose Urine UA Negative (Negative); Ketones Urine Negative (Negative); Leukocyte Esterase Urine Trace (Negative); Nitrite Urine Negative (Negative); Protein Urine 1+ (Negative); RBC Urine Automated 0-4 /hpf (0-4); Specific Gravity Urine 1.014 (1.000-1.030); Urobilinogen Urine Negative (Negative); pH Urine 5.5 (4.5-7.5)
[2019-06-09] MEDS: cefTRIAXone SODIUM 2,000 MG in DEXTROSE 5% 50 ML IV SCH (05:13)
[2019-06-09 06:59] LABS: Hematocrit (blood only) 24.6 % (37-47); Hemoglobin 8.3 g/dL (12.0-16.0); Mean Corpuscular Hgb Conc 33.7 g/dL (32-36); Mean Corpuscular Volume 99.2 fL (80-100); Platelet Count 22 K/uL (130-400); RDW Coefficient of Variation 18.5 % (11.5-14.5); Red Blood Count 2.48 M/uL (4.2-5.4)
[2019-06-09 07:12] LABS: BUN Creatinine Ratio 12.6 (10-20); Calcium 6.6 mg/dl (8.5-10.1); Creatinine Clr Calc Pharmacy 12.5 ml/min; Est GFR (African American) 9.4; Est GFR (Non-African American) 8.1; Potassium 3.8 mmol/L (3.5-5.1)
[2019-06-09 07:13] LABS: Basophils # (auto) 0.01 K/uL (0-0.2); Basophils % (auto) 1.3 %; Eosinophils # (auto) 0.03 K/uL (0-0.5); Eosinophils % (auto) 3.8 %; Immature Granulocytes # (auto) 0.04 K/uL (0.00-0.02); Lymphocytes # (auto) 0.36 K/uL (1.2-3.4); Monocytes # (auto) 0.11 K/uL (0.11-0.59); Monocytes % (auto) 13.8 %; Neutrophils # (auto) 0.25 K/uL (1.4-6.5); Neutrophils % (auto) 31.1 %; Rouleaux 2+
[2019-06-09] MEDS: SERTRALINE HCL 100 MG TABLET PO SCH ×2 (08:09→20:19)
[2019-06-09] MEDS ORDERED: dexAMETHasone 4 MG TAB PO ONE (08:27)
--- NOTE | 2019-06-09 09:25 | Progress Note ---
DATE: 06/09/2019 DIAGNOSES: 1. Acute renal injury. 2. Elevated liver transaminases. 3. Nausea and vomiting. 4. IgA lambda multiple myeloma. 5. Pancytopenia. 6. Right lower extremity deep vein thrombosis by history. SUBJECTIVE: The patient was seen and examined at bedside this morning. Clinically, she seems to be holding her own devoid of fever. Cultures remain negative. She remains profoundly pancytopenic, received single donor platelets yesterday. Her IgA level now is in excess of 2500 in essence disease relapse. We will plan for reinduction. Discussed this extensively with the patient at bedside. Nursing reports no overnight difficulties and the patient denies pain at this time. She is tolerating her diet and ambulating ad kelley. OBJECTIVE: GENERAL: The patient is in no acute distress. VITAL SIGNS: Temperature 36.7, pulse 73, respiratory rate 14, blood pressure 123/76. SKIN: Without rash or lesion. HEENT: Oral mucosa without erythema or ulceration. HEART: Regular rate and rhythm. LUNGS: Clear to auscultation bilaterally. ABDOMEN: Soft, nontender, nondistended. EXTREMITIES: No clubbing, cyanosis or edema. NEUROLOGIC: Grossly intact. LABORATORY DATA: WBC count 800, hemoglobin 8.3, platelet count 22,000. Absolute neutrophil count 250. Sodium 141, potassium 3.8, chloride 109, carbon dioxide 19, creatinine 5.15, BUN 65. IMPRESSION: 1. Relapsed IgA multiple myeloma. 2. Acute renal injury. 3. Nonalcoholic steatotic hepatitis. 4. Pancytopenia. 5. Hypoalbuminemia. PLAN: The patient is a pleasant 68-year-old female patient well known to me, currently under treatment for IgA lambda multiple myeloma. Had previously responded well and I suspect discontinued Velcade prematurely. Her IgA level suggests her disease is relapsing. At this juncture, reinduction needs to be started. We will order her dexamethasone 40 mg p.o. for the next 4 days pulsing 4 days on and 4 days off. We will alert my staff at [facility] to prepare to reinstitute the Velcade subcutaneously. The patient will resume Revlimid as previously ordered. Prior to discharge; however, I would like her to receive Neupogen 480 mcg subQ x1. Additionally, I would transfuse her another unit of single donor platelets. I will have her seen in the office sometime next week and follow her from there. Unless there is a medical indication to keep her further, she would like to go home sometime tomorrow. Any questions or concerns, feel free to contact me.
--- NOTE | 2019-06-09 10:13 | Nephrology Progress Note ---
Date of Service June 09, 2019 Assessment & Plan (1) JACQUIE (acute kidney injury): Baseline creatinine is less than 1 milligram/deciliter. Remains nonoliguric. Creatinine is thankfully stable. Transfusion support ordered by hematology this morning in preparation to resume induction therapy for recurrent MM. Blood pressure is low but acceptable. Volume status remains euvolemic. 24 hour urine collection results pending. I suspect renal dysfunction is related to recurrent MM. Medications are appropriately dosed for kidney function. (2) Multiple myeloma: (3) Anemia: (4) Thrombocytopenia: Subjective No acute events overnight. Rebecca feels reasonably well. No fevers or chills. She denies any urinary symptoms. She is upset about her diagnosis but states that she feels prepared to resume treatment and move forward. Review of Systems Review of Systems: All systems reviewed & are unremarkable except as noted in HPI & below Physical Exam Constitutional: well developed; no acute distress Eyes: no scleral abnormality and no corneal abnormality ENMT: Mouth: no oral mucosal abnormality and oral mucous membranes not dry Neck: normal visual inspection and trachea midline Respiratory: normal respiratory effort Auscultation: lungs clear to auscultation bilaterally Cardiovascular: Rate/Rhythm: regular rate and regular rhythm Heart Sounds: normal S1 and normal S2 Vessels: no JVD Extremities: + edema (trace LE) Gastrointestinal (Abdomen): Percussion/Palpation: abdomen soft; abdomen nontender Musculoskeletal: Extremities: no cyanosis and no clubbing Skin: normal turgor; no lesions Neurologic: Motor/Sensory: no tremor and no asterixis Psychiatric: Orientation: alert and oriented x 3 Results & Data Vital Signs (Past 12 Hours) Vital Signs Temp Pulse Pulse Resp BP BP Pulse Ox 06/09/19 09:58 36.9 C 93 H 16 104/53 L 98 06/09/19 09:57 36.9 C 93 H 16 104/53 L 98 06/09/19 09:42 36.7 C 85 15 101/61 98 06/09/19 07:55 36.7 C 73 14 123/76 94 06/09/19 02:54 36.6 C 79 20 130/63 96 06/08/19 23:41 36.7 C 77 20 102/57 L 95 Laboratory Results Laboratory Results - last 24 hr 06/08/19 06/08/19 06/09/19 06:12 15:30 05:59 WBC RBC Hgb Hct MCV MCH MCHC RDW Std Deviation RDW Coeff of Kimberly Plt Count MPV Immature Gran % (Auto) Neut % (Auto) Lymph % (Auto) [place] % (Auto) Eos % (Auto) Baso % (Auto) Immature Gran # (Auto) Neut # (Auto) Lymph # (Auto) [place] # (Auto) Eos # (Auto) Baso # (Auto) Rouleaux Peripher Smr Path Cons Sodium 141 Potassium 3.8 Chloride 109 H Carbon Dioxide 19 L Anion Gap 13.0 H BUN 65 H Creatinine 5.15 H* Est Cr Clr Drug Dosing 12.5 Est GFR ( Amer) 9.4 Est GFR (Non-Af Amer) 8.1 BUN/Creatinine Ratio 12.6 Glucose 92 Calcium 6.6 L Urine Color Yellow Urine Appearance Clear Urine pH 5.5 Ur Specific [place] 1.014 Urine Protein 1+ H Urine Glucose (UA) Negative Urine Ketones Negative Urine Blood 2+ H Urine Nitrite Negative Urine Bilirubin Negative Urine Urobilinogen Negative Ur Leukocyte Esterase Trace H Urine WBC (Auto) 1-5 Urine RBC (Auto) 0-4 U Hyaline Cast (Auto) 0 U Epithel Cells (Auto) 5-10 H Urine Bacteria (Auto) Negative 06/09/19 05:59 WBC 0.80 L* RBC 2.48 L Hgb 8.3 L Hct 24.6 L MCV 99.2 MCH 33.5 MCHC 33.7 RDW Std Deviation 66.0 H RDW Coeff of Kimberly 18.5 H Plt Count 22 L* MPV 11.0 H Immature Gran % (Auto) 5.0 Neut % (Auto) 31.1 Lymph % (Auto) 45.0 [place] % (Auto) 13.8 Eos % (Auto) 3.8 Baso % (Auto) 1.3 Immature Gran # (Auto) 0.04 H Neut # (Auto) 0.25 L* Lymph # (Auto) 0.36 L [place] # (Auto) 0.11 Eos # (Auto) 0.03 Baso # (Auto) 0.01 Rouleaux 2+ Peripher Smr Path Cons Sodium Potassium Chloride Carbon Dioxide Anion Gap BUN Creatinine Est Cr Clr Drug Dosing Est GFR ( Amer) Est GFR (Non-Af Amer) BUN/Creatinine Ratio Glucose Calcium Urine Color Urine Appearance Urine pH Ur Specific [place] Urine Protein Urine Glucose (UA) Urine Ketones Urine Blood Urine Nitrite Urine Bilirubin Urine Urobilinogen Ur Leukocyte Esterase Urine WBC (Auto) Urine RBC (Auto) U Hyaline Cast (Auto) U Epithel Cells (Auto) Urine Bacteria (Auto) PG Care Time/CCT Total # of Minutes Spent Total Time Spent with Patient: Total time spent is greater than 50% in coordination of care (as documented) at patient's floor/unit and/or counseling patient: (1) Multiple myeloma Multiple myeloma remission status: unspecified Qualified Code(s): C90.00 - Multiple myeloma not having achieved remission
[2019-06-09] MEDS ORDERED: FILGRASTIM 480 MCG/1.6 ML VIAL SQ ONE (12:19)
[2019-06-09] MEDS ORDERED: FILGRASTIM 480 MCG/1.6 ML VIAL SC ONE (13:32)
--- NOTE | 2019-06-09 16:04 | Family Medicine Progress Note ---
Date of Service June 09, 2019 Assessment & Plan (1) JACQUIE (acute kidney injury): 68 year old female with PMH of multiple myeloma who presents to [facility] as a direct admission from [facility] due to acute kidney injury. PMH: recently diagnosed MM in Jul 2018 with multiple bony lytic lesions involving 4th left ribs, T9, T12 and L1 vertebrae, and calvarium, thrombocytopenia, anemia, hx of TIA x 3, right leg DVT and depression Acute Kidney Injury -Likely secondary to relapse of her multiple myeloma, IgA elevated Creatinine stable at 5.15 from baseline of .8 Patient making good urine volume Electrolytes stable Continuing daily BMP's Hypotension -resolved -continue to HOLD home metoprolol Positive UA - negative Ucx -UA positive for blood, leukocyte esterase, white cells, bacteria -> Ucx NEG. and Blood cx so far NGTD. -cont to treat empirically with 2 g IV Rocephin daily, agree with low threshold to treat with broader coverage given imunosuppressed state. Multiple Myeloma -IgA greatly elevated to 2660, signalling relapse of MM Discussed case with Dr. Andersen, he will resume treatment starting with dexamethasone 40 mg PO -H/o reatment with Revlimid -- currently holding due to concern for nephrotoxicity/ATN. On day of admission, pt was on day 4 of her 14 days of the medication. Has had several rounds. Acute on chronic Pancytopenia -worsening pancytopenia could be related to MM vs. treatment with Revlimid - as above. -follow CBC, hold chem anticoagulation ppx in light of low plt. -precautions as appropriate -Neupogen added per Heme/onc team. -12Sept - 1 bag platelet transfused. Mild Transaminitis -AST 362 and ALT 164 -> increased from normal LFTs in 03/2019 -no RUQ pain, pt has had a prior cholecystectomy - RUQ U/S here shows fatty liver, otherwise normal. -follow LFTs H/o Right Leg DVT -diagnosed in April 2019 -holding lovenox given thrombocytopenia and JACQUIE Code status: FULL DVT Prophylaxis: SCDs, hold in the setting of thrombocytopenia Disposition: admitted to telemetry Other ongoing medical problems: Depression -continue home sertraline Hypertension -HOLD home metoprolol - as above (2) Nausea & vomiting: (3) Multiple myeloma: (4) History of TIA (transient ischemic attack): (5) Mood disorder: (6) Anemia: (7) Thrombocytopenia: Supervising Physician Co-Signing Physician Notes I saw the patient with the resident physician and confirmed [place] portion of the history and physical exam. I also discussed the plan with nephrology. Agree with the impression and plan as noted above. Subjective Ms. Fuller is doing well today, she does not endorse any discomfort or any new symptoms. She is feeling discouraged about the relapse of her Multiple myeloma but she remains optimistic that she will be successful with therapy. Review of Systems Review of Systems: All systems reviewed & are unremarkable except as noted in HPI & below Physical Exam Constitutional: WD/WN, vitals as above cooperative and comfortable Eyes: PERRL, conjunctivae normal, anicteric sclerae ENMT: external ear and nose normal, oropharynx normal (dry mucous membranes) Respiratory: normal respiratory effort, lungs clear to auscultation Cardiovascular: RRR, no murmur, no edema Gastrointestinal (Abdomen): normal bowel sounds, soft, nontender, no hepatosplenomegaly (multiple bruises noted to abdomen) Skin: no rashes, warm and dry Psychiatric: A+Ox3, euthymic affect Results & Data Vital Signs (Past 12 Hours) Vital Signs Temp Pulse Pulse Resp BP BP Pulse Ox 06/09/19 16:01 36.8 C 77 27 H 130/81 95 06/09/19 12:15 36.8 C 92 H 16 126/78 97 06/09/19 11:15 36.4 C L 97 H 18 119/75 97 06/09/19 10:16 36.8 C 18 L 18 108/64 97 06/09/19 10:15 88 26 H 06/09/19 10:14 76 19 91/66 L 98 06/09/19 10:01 73 18 96 06/09/19 10:00 75 21 108/64 96 06/09/19 09:58 36.9 C 93 H 16 104/53 L 98 06/09/19 09:57 36.9 C 93 H 16 104/53 L 98 06/09/19 09:56 74 23 104/53 L 96 06/09/19 09:45 91 H 22 96 06/09/19 09:42 36.7 C 78 17 101/61 96 06/09/19 09:30 78 17 06/09/19 09:15 88 19 06/09/19 09:00 75 19 06/09/19 08:45 78 25 H 06/09/19 08:30 84 18 06/09/19 08:15 73 21 06/09/19 08:01 73 22 06/09/19 07:55 36.7 C 74 73 14 123/76 123/76 94 06/09/19 07:45 0 L 06/09/19 07:39 0 L 06/09/19 07:15 71 18 06/09/19 07:00 69 16 06/09/19 06:45 69 16 06/09/19 06:30 66 17 06/09/19 06:15 74 20 06/09/19 06:00 75 19 06/09/19 05:45 17 06/09/19 05:30 0 L 20 06/09/19 05:15 0 L 16 06/09/19 05:00 73 16 06/09/19 04:45 71 15 06/09/19 04:30 73 16 06/09/19 04:15 71 19 PG Care Time/CCT Total # of Minutes Spent Total Time Spent with Patient: Total time spent is greater than 50% in coordination of care (as documented) at patient's floor/unit and/or counseling patient: (1) Multiple myeloma Multiple myeloma remission status: unspecified Qualified Code(s): C90.00 - Multiple myeloma not having achieved remission
[2019-06-10] MEDS: cefTRIAXone SODIUM 2,000 MG in DEXTROSE 5% 50 ML IV SCH (05:44)
[2019-06-10 06:41] LABS: Hematocrit (blood only) 23.6 % (37-47); Hemoglobin 8.1 g/dL (12.0-16.0); Mean Corpuscular Hgb Conc 34.3 g/dL (32-36); Platelet Count 32 K/uL (130-400); RDW Coefficient of Variation 18.6 % (11.5-14.5); RDW Standard Deviation 67.1 fL (36.4-46.3); Red Blood Count 2.36 M/uL (4.2-5.4); White Blood Count 1.68 K/uL (4.8-10.8)
[2019-06-10 07:13] LABS: BUN Creatinine Ratio 13.5 (10-20); Calcium 6.8 mg/dl (8.5-10.1); Creatinine Clr Calc Pharmacy 13.1 ml/min; Est GFR (African American) 9.9; Est GFR (Non-African American) 8.6; Potassium 4.1 mmol/L (3.5-5.1)
[2019-06-10 07:36] LABS: Basophils # (auto) 0.01 K/uL (0-0.2); Basophils % (auto) 0.6 %; Eosinophils # (auto) 0.02 K/uL (0-0.5); Eosinophils % (auto) 1.2 %; Immature Granulocytes # (auto) 0.08 K/uL (0.00-0.02); Immature Granulocytes % (auto) 4.8 %; Lymphocytes # (auto) 0.43 K/uL (1.2-3.4); Lymphocytes % (auto) 25.6 %; Monocytes # (auto) 0.15 K/uL (0.11-0.59); Monocytes % (auto) 8.9 %; Neutrophils # (auto) 0.99 K/uL (1.4-6.5); Neutrophils % (auto) 58.9 %; Rouleaux 2+
[2019-06-10] MEDS: dexAMETHasone 4 MG TAB PO SCH (08:24)
[2019-06-10] MEDS: SERTRALINE HCL 100 MG TABLET PO SCH ×2 (08:24→20:43)
[2019-06-10] MEDS: SODIUM BICARBONATE 650 MG TAB PO SCH ×2 (08:27→20:43)
--- NOTE | 2019-06-10 10:19 | Progress Note ---
DATE: 06/10/2019 HEMATOLOGY PROGRESS NOTE DIAGNOSES: 1. Acute renal injury. 2. Nonalcoholic steatotic hepatitis. 3. Relapsed IgA lambda multiple myeloma. 4. Pancytopenia attributable to relapsed IgA lambda multiple myeloma. 5. Right lower extremity deep vein thromboses by history. SUBJECTIVE: Rebecca was seen and examined at bedside this morning. Clinically, she continues to hold her own. Her creatinine did improve slightly overnight. She was started on high-dose dexamethasone in preparation to resume combination Velcade, dexamethasone, and Revlimid. I spoke to Dr. Lang Stephen informally. I am agreeable to allow Rebecca to go home while watching her renal function carefully. I suspect as does Dr. Stephen that there is a fair amount of light chains that would be found in her 24-hour urine when results are available. Steroids should serve as a pretty decent temporizing measure moving forward to stabilize her disease. She has no complaints of pain. She is tolerating her diet and ambulating with minimal assistance. OBJECTIVE: GENERAL: In no acute distress. VITAL SIGNS: Temperature 36.5, pulse 82, respiratory rate 20, blood pressure 135/91. SKIN: Without rash or lesion. HEENT: Oral mucosa without erythema or ulceration. HEART: Regular rate and rhythm. LUNGS: Clear to auscultation bilaterally. ABDOMEN: Soft, nontender, nondistended. EXTREMITIES: No clubbing, cyanosis, or edema. NEUROLOGIC: Grossly intact. LABORATORY DATA: WBC count 1680, hemoglobin 8.1, platelet count 32,000. Her absolute neutrophil count is 1000. Sodium 141, potassium 4.1, chloride 109, carbon dioxide 19, BUN 67, creatinine 4.91. IMPRESSION: 1. Relapsed IgA multiple myeloma. 2. Acute renal injury. 3. Nonalcoholic steatotic hepatitis. 4. Pancytopenia. 5. Hypoalbuminemia. PLAN: Started Rebecca on oral dexamethasone yesterday. Already seeing some improvement in her renal function. Her cell counts are adequate. She could be safely discharged home. Again spoke with the nephrology service and it is agreed that as long as her renal function heads towards normal, she should be safe to discharge. I plan to reinstitute Velcade early next week upon insurance approval. Rebecca has been advised of the plan moving forward and is agreeable for discharge if there are no outstanding medical issues. Thank you again for assisting me in the care of this very complex lady.
--- NOTE | 2019-06-10 10:58 | Nephrology Progress Note ---
Date of Service June 10, 2019 Assessment & Plan (1) JACQUIE (acute kidney injury): Baseline creatinine is less than 1 milligram/deciliter. Remains nonoliguric. Creatinine thankfully remains stable. Transfusion support ordered by hematology. Blood pressure is low but acceptable. Dexamethasone started yesterday morning. Plan to resume velcade on Wednesday. I discussed the plan of care with Dr. Jaeger and Dr. Andersen this morning. Volume status remains euvolemic. No obvious additional role for IVF at this time. Pheresis and dialysis not currently indicated. 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 Urine studies are still pending. Close follow up will be necessary. Medications are appropriately dosed for kidney function. (2) Multiple myeloma: (3) Anemia: (4) Thrombocytopenia: Subjective Ms. Fuller is doing well today. She describes some coarseness of voice and a slight non-productive cough but otherwise she feels well. No fevers or chills. No sinus congestion or pain. She hopes to be discharged home tomorrow. Review of Systems Review of Systems: All systems reviewed & are unremarkable except as noted in HPI & below Physical Exam Constitutional: well developed; no acute distress Eyes: no scleral abnormality and no corneal abnormality ENMT: Mouth: no oral mucosal abnormality and oral mucous membranes not dry Neck: normal visual inspection and trachea midline Respiratory: normal respiratory effort Auscultation: lungs clear to auscultation bilaterally Cardiovascular: Rate/Rhythm: regular rate and regular rhythm Heart Sounds: normal S1 and normal S2 Vessels: no JVD Extremities: + edema (trace LE) Gastrointestinal (Abdomen): Percussion/Palpation: abdomen soft; abdomen nontender Musculoskeletal: Extremities: no cyanosis and no clubbing Skin: normal turgor; no lesions Neurologic: Motor/Sensory: no tremor and no asterixis Psychiatric: Orientation: alert and oriented x 3 Results & Data Vital Signs (Past 12 Hours) Vital Signs Temp Pulse Pulse Resp BP BP Pulse Ox 06/10/19 08:00 36.5 C 69 82 20 135/91 97 06/10/19 05:48 109/61 06/10/19 03:59 36.6 C 82 20 99/67 L 95 06/10/19 01:24 58 L 06/09/19 23:42 36.6 C 67 16 107/73 95 Laboratory Results Laboratory Results - last 24 hr 06/10/19 06/10/19 06:19 06:19 WBC 1.68 L RBC 2.36 L Hgb 8.1 L Hct 23.6 L MCV 100.0 MCH 34.3 H MCHC 34.3 RDW Std Deviation 67.1 H RDW Coeff of Kimberly 18.6 H Plt Count 32 L MPV 12.0 H Immature Gran % (Auto) 4.8 Neut % (Auto) 58.9 Lymph % (Auto) 25.6 [place] % (Auto) 8.9 Eos % (Auto) 1.2 Baso % (Auto) 0.6 Immature Gran # (Auto) 0.08 H Neut # (Auto) 0.99 L* Lymph # (Auto) 0.43 L [place] # (Auto) 0.15 Eos # (Auto) 0.02 Baso # (Auto) 0.01 Rouleaux 2+ Sodium 141 Potassium 4.1 Chloride 109 H Carbon Dioxide 19 L Anion Gap 13.0 H BUN 67 H Creatinine 4.91 H* Est Cr Clr Drug Dosing 13.1 Est GFR ( Amer) 9.9 Est GFR (Non-Af Amer) 8.6 BUN/Creatinine Ratio 13.5 Glucose 138 H Calcium 6.8 L PG Care Time/CCT Total # of Minutes Spent Total Time Spent with Patient: Total time spent is greater than 50% in coordination of care (as documented) at patient's floor/unit and/or counseling patient: (1) Multiple myeloma Multiple myeloma remission status: unspecified Qualified Code(s): C90.00 - Mu ltiple myeloma not having achieved remission
--- NOTE | 2019-06-10 13:48 | Family Medicine Progress Note ---
Date of Service June 10, 2019 Assessment & Plan (1) JACQUIE (acute kidney injury): 68 year old female with PMH of multiple myeloma who presents to [facility] as a direct admission from [facility] due to acute kidney injury. PMH: recently diagnosed MM in Jul 2018 with multiple bony lytic lesions involving 4th left ribs, T9, T12 and L1 vertebrae, and calvarium, thrombocytopenia, anemia, hx of TIA x 3, right leg DVT and depression Acute Kidney Injury -Likely secondary to relapse of her multiple myeloma, IgA elevated Nephrology following, appreciate recommendations Hypotension -resolved -Holding metoprolol Positive UA - negative Ucx Continue Rocephin considering immunocompromise state. Multiple Myeloma, relapse Velcade treatment planned for Wednesday. Dexamethasone started yesterday. Acute on chronic Pancytopenia -worsening pancytopenia could be related to MM vs. treatment with Revlimid - as above. Continue to follow CBC, white count improving status post Neupogen -PLT improving, continue Lovenox Mild Transaminitis -AST 362 and ALT 164 -> increased from normal LFTs in 03/2019 -no RUQ pain, pt has had a prior cholecystectomy - RUQ U/S here shows fatty liver, otherwise normal. H/o Right Leg DVT -diagnosed in April 2019 -will restart Lovenox, PLT improving, follow CBC Depression -continue home sertraline Hypertension -HOLD home metoprolol - as above Code status: FULL DVT Prophylaxis: Lovenox Disposition: continue on telemetry (2) Nausea & vomiting: (3) Multiple myeloma: (4) History of TIA (transient ischemic attack): (5) Mood disorder: (6) Anemia: (7) Thrombocytopenia: Supervising Physician Co-Signing Physician Notes I saw the patient with the resident physician and confirmed [place] portion of the history and physical exam. I also discussed the plan with nephrology. Agree with the impression and plan as noted above. When seen this morning, she had no complaints. Upon exam, she appears euvolemic. Creatinine stable. White blood cell count improve status post Neupogen and platelet count improved status post platelet transfusion. Recheck CBC and BMP in AM Subjective Patient states that she is feeling better this morning. She understands that her multiple myeloma has relapsed. She understands treatment. She lives at home aloneher son and her . She feels supported by friends and family. She is very appreciative of her care. She states that she is tolerating regular diet. She has been ambulating. Review of Systems Review of Systems: All systems reviewed & are unremarkable except as noted in HPI & below Physical Exam Constitutional: WD/WN, vitals as above Eyes: PERRL, conjunctivae normal, anicteric sclerae ENMT: external ear and nose normal, oropharynx normal Neck: trachea midline, no thyromegaly Respiratory: normal respiratory effort, lungs clear to auscultation Cardiovascular: RRR, no murmur, no edema Gastrointestinal (Abdomen): normal bowel sounds, soft, nontender, no hepatosplenomegaly Musculoskeletal: no cyanosis or clubbing, extremities motor strength 5/5 Skin: no rashes, warm and dry Neurologic: PERRL, EOMI, accommodation nl, no face palsy, no dysarthria Psychiatric: A+Ox3, euthymic affect Results & Data Vital Signs (Past 12 Hours) Vital Signs Temp Pulse Pulse Resp BP BP Pulse Ox 06/10/19 11:56 36.7 C 76 19 136/63 94 06/10/19 08:00 36.5 C 69 82 20 135/91 97 06/10/19 05:48 109/61 06/10/19 03:59 36.6 C 82 20 99/67 L 95 PG Care Time/CCT Total # of Minutes Spent Total Time Spent with Patient: Total time spent is greater than 50% in coordination of care (as documented) at patient's floor/unit and/or counseling patient: Resident Activity Tracking Resident Involvement: Resident Care Provided Care Provided: Adult Hospital Medicine (1) Multiple myeloma Multiple myeloma remission status: unspecified Qualified Code(s): C90.00 - Multiple myeloma not having achieved remission
[2019-06-10] MEDS ORDERED: ENOXAPARIN 100 MG/1ML SYR SC SCH (15:00)
[2019-06-10 18:14] LABS: Albumin 2.4 G/DL (3.8-4.8); Alpha 1 Globulin 0.3 G/DL (0.2-0.3); Alpha 2 Globulin 0.4 G/DL (0.5-0.9); Beta-1-Globulin 0.2 G/DL (0.4-0.6); Beta-2-Globulin 0.2 G/DL (0.2-0.5); Gamma Globulin 4.1 G/DL (0.8-1.7); Kappa 101 mg/dL (176-443); Monoclonal Protein Band 2 DNR G/DL (NOT DETECTED); Monoclonal Protein Band 3 DNR G/DL (NOT DETECTED); Total Protein 7.5 G/DL (6.2-8.3)
[2019-06-11 07:01] LABS: Hematocrit (blood only) 21.7 % (37-47); Hemoglobin 7.1 g/dL (12.0-16.0); Mean Corpuscular Hgb Conc 32.7 g/dL (32-36); Platelet Count 25 K/uL (130-400); RDW Coefficient of Variation 18.7 % (11.5-14.5); RDW Standard Deviation 67.8 fL (36.4-46.3); Red Blood Count 2.17 M/uL (4.2-5.4); White Blood Count 2.08 K/uL (4.8-10.8)
[2019-06-11 07:18] LABS: Anisocytosis Present; Basophils # (auto) 0.01 K/uL (0-0.2); Basophils % (auto) 0.5 %; Eosinophils # (auto) 0.02 K/uL (0-0.5); Immature Granulocytes # (auto) 0.16 K/uL (0.00-0.02); Immature Granulocytes % (auto) 7.7 %; Lymphocytes # (auto) 0.42 K/uL (1.2-3.4); Lymphocytes % (auto) 20.2 %; Monocytes # (auto) 0.18 K/uL (0.11-0.59); Monocytes % (auto) 8.7 %; Neutrophils # (auto) 1.29 K/uL (1.4-6.5); Neutrophils % (auto) 61.9 %; Rouleaux 1+
[2019-06-11 07:30] LABS: Albumin Level 2.2 gm/dl (3.4-5.0); BUN Creatinine Ratio 15.7 (10-20); Calcium 6.6 mg/dl (8.5-10.1); Est GFR (Non-African American) 9.5; Phosphorus 4.3 mg/dl (2.5-4.9)
[2019-06-11] MEDS: dexAMETHasone 4 MG TAB PO SCH (08:32)
[2019-06-11] MEDS: SODIUM BICARBONATE 650 MG TAB PO SCH (08:32)
[2019-06-11] MEDS: SERTRALINE HCL 100 MG TABLET PO SCH (08:32)
--- NOTE | 2019-06-11 10:02 | Progress Note ---
DATE: 06/11/2019 DIAGNOSES: 1. Acute renal injury. 2. Nonalcoholic steatotic hepatitis. 3. Relapsed IgA lambda multiple myeloma. 4. Pancytopenia attributable to relapse. 5. Right lower extremity deep vein thromboses by history. SUBJECTIVE: Rebecca was seen and examined this morning at bedside. Again, she remains relatively stable clinically despite being profoundly anemic. She is now on day #3 high dose dexamethasone. She will receive Velcade hopefully tomorrow. Discussed informally with Dr. Jaeger who is currently managing her and the need for transfusion. There is no blood readily available today. Therefore, will prepare to transfuse her as an outpatient as necessary. She has no complaints of pain. Tolerating her diet and ambulating ad kelley. OBJECTIVE: GENERAL: She is in no acute distress. VITAL SIGNS: Temperature 36.8, pulse 84, respiratory rate 18, blood pressure 132/82. SKIN: Without rash or lesion. HEENT: Oral mucosa without erythema or ulceration. HEART: Regular rate and rhythm. LUNGS: Clear to auscultation bilaterally. ABDOMEN: Nontender, nondistended, without palpable hepatosplenomegaly. EXTREMITIES: No clubbing, cyanosis or edema. NEUROLOGIC: Grossly intact. LABORATORY DATA: WBC count 2080, hemoglobin 7.1, platelet count 25,000. Absolute neutrophil count is 1300. Chemistries: Sodium 144, potassium 4, chloride 111, carbon dioxide 21, BUN 71, creatinine 4.51, albumin 2.2. IMPRESSION: 1. Acute renal injury. 2. Relapsed IgA multiple myeloma. 3. Nonalcoholic steatotic hepatitis. 4. Pancytopenia. 5. Hypoalbuminemia. 6. Anemia. PLAN: I spoke to Dr. Jaeger who is managing Rebecca at present. Rebecca is to start Velcade outpatient tomorrow. She remains pancytopenic and probably at some point should receive transfusion of packed RBCs. Blood bank was contacted, unfortunately no blood on hand today. As long as she is hemodynamically stable, will be seen in our office tomorrow or Wednesday at the latest and can certainly arrange for transfusion. Seems like the dexamethasone has been effective as her creatinine and white count have both improved.
--- NOTE | 2019-06-11 12:54 | Nephrology Progress Note ---
Date of Service June 11, 2019 Assessment & Plan (1) JACQUIE (acute kidney injury): Baseline creatinine is less than 1 milligram/deciliter. Remains nonoliguric. Creatinine thankfully showing some signs of improvement in kidney function. Volume status remains euvolemic. Oral intake is adequate. 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 Urine studies are still pending. Close follow up will be necessary. Labs will be monitored through the cancer center. I will arrange follow up in the nephrology clinic within 2 weeks of discharge. Medications are appropriately dosed for kidney function. (2) Multiple myeloma: (3) Anemia: - (4) Thrombocytopenia: Aniyah Fernandez was seen and evaluated this morning. Overall, she felt well. She endorsed fatigue and persistent hoarseness. She noted that symptoms are similar to when she was on steroids in the past. No fevers or chills. No shortness of breath. She was anxious to be discharged home and expressed understanding regarding the importance of follow up. Review of Systems Review of Systems: All systems reviewed & are unremarkable except as noted in HPI & below Physical Exam Constitutional: well developed; no acute distress Eyes: no scleral abnormality and no corneal abnormality ENMT: Mouth: no oral mucosal abnormality and oral mucous membranes not dry Neck: normal visual inspection and trachea midline Respiratory: normal respiratory effort Auscultation: lungs clear to auscultation bilaterally Cardiovascular: Rate/Rhythm: regular rate and regular rhythm Heart Sounds: normal S1 and normal S2 Vessels: no JVD Extremities: + edema (trace LE) Gastrointestinal (Abdomen): Percussion/Palpation: abdomen soft; abdomen nontender Musculoskeletal: Extremities: no cyanosis and no clubbing Skin: normal turgor; no lesions Neurologic: Motor/Sensory: no tremor and no asterixis Psychiatric: Orientation: alert and oriented x 3 Results & Data Vital Signs (Past 12 Hours) Vital Signs Temp Pulse Pulse Pulse Resp BP BP 06/11/19 11:58 36.7 C 67 17 129/75 06/11/19 11:26 36.8 C 84 60 18 116/56 L 132/82 06/11/19 08:10 36.8 C 84 18 132/82 06/11/19 08:00 74 06/11/19 03:03 36.7 C 64 22 113/61 Pulse Ox 06/11/19 11:58 97 06/11/19 11:26 98 06/11/19 08:10 98 06/11/19 08:00 06/11/19 03:03 97 Laboratory Results Laboratory Results - last 24 hr 06/07/19 06/11/19 06/11/19 06:50 06:19 06:19 WBC 2.08 L RBC 2.17 L Hgb 7.1 L Hct 21.7 L MCV 100.0 MCH 32.7 MCHC 32.7 RDW Std Deviation 67.8 H RDW Coeff of Kimberly 18.7 H Plt Count 25 L* MPV 12.0 H Immature Gran % (Auto) 7.7 Neut % (Auto) 61.9 Lymph % (Auto) 20.2 [place] % (Auto) 8.7 Eos % (Auto) 1.0 Baso % (Auto) 0.5 Immature Gran # (Auto) 0.16 H Neut # (Auto) 1.29 L Lymph # (Auto) 0.[address] [place] # (Auto) 0.18 Eos # (Auto) 0.02 Baso # (Auto) 0.01 Anisocytosis Present Rouleaux 1+ Sodium 144 Potassium 4.0 Chloride 111 H Carbon Dioxide 21 Anion Gap 13.0 H BUN 71 H Creatinine 4.51 H* D Est Cr Clr Drug Dosing 14.0 Est GFR ( Amer) 11.0 Est GFR (Non-Af Amer) 9.5 BUN/Creatinine Ratio 15.7 Glucose 108 H Calcium 6.6 L Phosphorus 4.3 Total Protein (PEP) 7.5 Albumin 2.2 L Albumin (PEP) 2.4 L Eqizm-5-Fydfseoat 0.3 Ilfba-6-Gludbygue 0.4 L Zdjk-2-Ephyogfu 0.2 L Euyx-2-Ctuvhgfg 0.2 Gamma Globulins 4.1 H Monoclonal Peak 3 DNR Ser Monoclonl Protein 4.0 H Ser Monoclonal Prot 2 DNR PEP Interpretation SEE NOTE Serum Immunofixation SEE NOTE Tot [place]/Lambda Ratio SEE BELOW [place] Light Chain Anal 101 L Lambda Light Chain Anal SEE BELOW PG Care Time/CCT Total # of Minutes Spent Total Time Spent with Patient: Total time spent is greater than 50% in coordination of care (as documented) at patient's floor/unit and/or counseling patient: (1) Multiple myeloma Multiple myeloma remission status: unspecified Qualified Code(s): C90.00 - Multiple myeloma not having achieved remission
--- NOTE | 2019-06-11 13:21 | Discharge Summary ---
Date of Service June 11, 2019 Admission HPI Per Admitting Provider Ms. Fuller is a 68 year old female with a past medical history of multiple myeloma originally diagnosed in Jul 2018 with multiple bony lytic lesions involving 4th left ribs, T9, T12 and L1 vertebrae, and calvarium, thrombocytopenia, anemia, hx of TIA x 3, right leg DVT and depression who presents to [facility] as a direct admission from [facility] due to acute kidney injury. She states she had a 1 week history of vomiting that stopped 3 days ago. She did have several episodes of loose stools 4 days ago, took Imodium and has not had any since. She presented to the emergency department at [facility] due to feeling fatigued and weak. She denies any further episodes of vomiting or diarrhea. She states she never had any abdominal pain, urinary symptoms or fever. She does report intermittent chills. She denies chest pain or shortness of breath. The patient states that she was transferred to [facility] due to an elevated creatinine level. Her labs from [facility] are s ignificant for: WCC 1.81, Hgb 10.6, Platelets 62. Na 136, K 3.8, BUN 50, Cr 4.67, Alk phos 57, AST 362, ALT 164, Mg 1.6, Lactic Acid 3.2, and negative trop. Blood and urine cultures were ordered. She was given a 1L normal saline bolus and subsequently transferred to [facility]. PMHx: Multiple myeloma, follows with Dr. Andersen. Right leg DVT, diagnosed 1 month ago. TIA x3. Depression. PSHx: Hysterectomy, cholecystectomy Meds: Revlimid 25 mg daily, Lopressor 25 mg twice daily, Lovenox 100 mg twice daily, Zoloft 100 mg twice daily Allergies: No known drug allergies SHx: She is a former smoker, and quit approximately 30 years ago, but smoked 3 packs a day for 17 years. She rarely consumes alcohol and denies illicit drug use. Admission Exam Per Admitting Provider Physical Exam Constitutional: WD/WN, vitals as above cooperative and comfortable Eyes: PERRL, conjunctivae normal, anicteric sclerae ENMT: external ear and nose normal, oropharynx normal (dry mucous membranes) Respiratory: normal respiratory effort, lungs clear to auscultation Cardiovascular: RRR, no murmur, no edema Gastrointestinal (Abdomen): normal bowel sounds, soft, nontender, no hepatosplenomegaly (multiple bruises noted to abdomen) Musculoskeletal: right calf TTP, no erythema, not warm to touch Skin: no rashes, warm and dry Neurologic: Cranial nerves 2-12 grossly intact 5/5 power in UE and LE Psychiatric: A+Ox3, euthymic affect Principal Diagnosis JACQUIE, multiple myeloma Discharge Exam Constitutional WD/WN, vitals as above Eyes PERRL, conjunctivae normal, anicteric sclerae ENMT external ear and nose normal, oropharynx normal Neck trachea midline, no thyromegaly Respiratory normal respiratory effort, lungs clear to auscultation Cardiovascular RRR, no murmur, no edema Gastrointestinal (Abdomen) normal bowel sounds, soft, nontender, no hepatosplenomegaly Musculoskeletal no cyanosis or clubbing, extremities motor strength 5/5 Skin no rashes, warm and dry Neurologic PERRL, EOMI, accommodation nl, no face palsy, no dysarthria Psychiatric A+Ox3, euthymic affect Discharge Data Allergies Allergy/AdvReac Type Severity Reaction Status Date / Time ibuprofen AdvReac Tachycardia Unverified 08/08/18 14:02 Consultations 06/05/19 17:27 Consult Case Management - Discharge Planning Routine 06/06/19 02:35 Consult Hematology Routine 06/06/19 13:52 Consult Nephrology Routine Ordered Studies 06/06/19 13:08 US renal/blad retro comp Routine 06/07/19 08:39 US abdomen limited Routine [place] [phone] Ultrasound Report Patient: Sascha FULLER Date: 06/06/19 MR#: [id number]: [address] Acct ID:[id number]: [address] [facility] Zip: [place] [address] Age: 68Location: 2E Sex: F Room/Bed: [facility] Att Phy: Tito Law, MDDiagnosis: ACUTE KIDNEY INJURY, NEURTROPENIA [place] Phy: Albino Mcmanus D.O.Service Date: 06/07/19 Fam Phy:Interpreting Phy: Maxi Whitehead MD Admit Phy: Najma Ulrich D.O. Ordering Phy: Tito Law MD cc: ~ US abdomen limited HISTORY: Abnormal liver function tests LFT, JACQUIE for underlying liver abnormality. COMPARISON: Renal ultrasound 06/06/2019 FINDINGS: Pancreas: The pancreas demonstrates a normal echotexture. Liver: Fatty infiltration. Gallbladder: Surgically absent CBD: 5 mm Right kidney: Stable lower pole right renal cyst. No evidence for hydronephrosis. IMPRESSION: 1. Fatty replacement of the liver.. 2. Stable right renal cyst. 3. Otherwise negative study post cholecystectomy. The above report was generated using voice recognition software. It may contain grammatical, syntax or spelling errors. Electronically signed by: Maxi Whitehead M.D. 06/07/2019 10:52 AM Dictated: 06/07/19 1051 Transcribed: 06/07/19 1051 [place] [phone] Ultrasound Report Patient: SOL FULLERdmit Date: 06/06/19 MR#: [id number]: [id number] Acct ID:[id number]: [address] Date: 1950[facility] Zip: [place] [address] Age: 68Location: 2E Sex: F Room/Bed: [facility] Att Phy: Tito Law MDDiagnosis: ACUTE KIDNEY INJURY, NEURTROPENIA [place] Phy: Albino Mcmanus D.O.Service Date: 06/06/19 Fam Phy:Interpreting Phy: Maxi Whitehead MD Admit Phy: Najma Ulrich D.O. Ordering Phy: Abril Rebolledo MD cc: ~ US renal/blad retro comp HISTORY: Renal insufficiency JACQUIE COMPARISON: None. FINDINGS: Right kidney: Maximum dimension 13.3 cm. No evidence for hydronephrosis. 4 cm lower pole cyst Normal corticomedullary differentiation and cortical thickness. Left kidney: Maximum dimension 13 cm. No evidence for hydronephrosis. Normal corticomedullary differentiation and cortical thickness. Bladder: No bladder wall thickening. The bilateral ureteral jets were iden tified. IMPRESSION: 1. 4 cm lower pole right renal cyst. Hospital Course (1) JACQUIE (acute kidney injury): 68 year old female with PMH of multiple myeloma who presents to [facility] as a direct admission from [facility] due to acute kidney injury. PMH: recently diagnosed MM in Jul 2018 with multiple bony lytic lesions inv olving 4th left ribs, T9, T12 and L1 vertebrae, and calvarium, thrombocytopenia, anemia, hx of TIA x 3, right leg DVT and depression Acute Kidney Injury -Likely secondary to relapse of her multiple myeloma, IgA elevated Nephrology consulted Acute on chronic Pancytopenia Worsening pancytopenia could be related to MM vs. treatment with Revlimid - as above. Continue to follow CBC in the outpatient, white count improving status post Neupogen Patient's hemoglobin was 7.1 and platelets were 25 at the time of discharge Discussed plan with Dr. Andersen--he will recheck CBC on 06/12/2019 and will transfuse the patient if necessary Holding the patient's Lovenox, considering overall renal function, 100 mg dose of Lovenox received yesterday and INR of 1.6 Multiple Myeloma, relapse Velcade treatment planned for Wednesday. Received dexamethasone 40 mg daily Prescribed 1 additional dose of dexamethasone for 06/12/2019 Prescribed GI prophylaxisomeprazole 40 mg daily Hypotension -resolved, continue metoprolol Positive UA - negative Ucx, asymptomatic Received Rocephin daily in the hospital, no oral antibiotic treatment at the time of discharge Mild Transaminitis -AST 362 and ALT 164 -> increased from normal LFTs in 03/2019 -no RUQ pain, pt has had a prior cholecystectomy - RUQ U/S here shows fatty liver, otherwise normal. H/o Right Leg DVT -diagnosed in April 2019 Holding Lovenox until platelets and counts improved. See above Depression -continue home sertraline (2) Nausea & vomiting: (3) Multiple myeloma: (4) History of TIA (transient ischemic attack): (5) Mood disorder: (6) Anemia: (7) Thrombocytopenia: Total Time Total Time Spent Total Time Spent (In Minutes): I spent 40 minutes, in sum, examined the patient, discussion with consultants, and preparing reviewing discharge materials. Total Time Includes: Examination of the Patient, Discharge Planning, Medication Reconciliation and Communication With Other Providers Discharge Plan Discharge Items Patient Disposition: Home - Self-Care Reason For Visit: ACUTE KIDNEY INJURY, NEURTROPENIA Discharge Diagnosis: JACQUIE, multiple myeloma Activity: Resume your previous activity Non-emergency contact: Primary Care Provider, Director Of Physical Education and Oncologist Call non-emergency contact if: you have any medication questions Follow-up/Referrals: Albino Mcmanus [Primary Care Provider] - Diet: Heart Healthy Addtl Attending Provider Instructions: You came to the hospital and were found to have kidney dysfunction secondary to a relapse of multiple myeloma. In the hospital, you met with a data technical lead and an oncologist. We recommend that you: #[address] Bowman in the outpatient for planned treatment. At that time, they will check your blood levels to determine if you you need additional blood transfusions. You will need to take your doses of steroids tomorrow prior to the appointment. You will take 10, 4 mg tablets of Decadron. We are also giving you an anti-acid medication to take daily. This can help prevent bleeding from your stomach. #2 We DO NOT want you to take your blood thinning shot (Lovenox). You are at a high risk of bleeding with where your levels are currently. #3 Follow up with our kidney doctors in the outpatient #4 Get lab work in the next 2-3 days to evaluate you kidney function Concerning symptoms include; severe fatigue, chest pain, shortness of breathe, loss of consciousness, lack of urine. Please follow up in the emergency room if you develop concerning symptoms. In addition, if you watch for signs of bleeding in your stool and from your gums. Pending Studies at Discharge: Yes Studies:: urine Immunofixation Stand-Alone Forms: My [facility] [employer] Medications and DC Order Prescriptions: New metoprolol tartrate 25 mg Tablet 25 mg PO BID 30 Days Qty: 60 RF: 0 dexamethasone 4 mg Tablet 40 mg PO DAILY 1 Days Qty: 10 RF: 0 omeprazole 40 mg capsule,delayed release(DR/EC) 40 mg PO DAILY 30 Days Qty: 30 RF: 3 Continued aspirin [Vika Aspirin] 325 mg Tablet 325 mg PO DAILY RF: 0 sertraline [Zoloft] 100 mg Tablet 100 mg PO BID RF: 0 lidocaine 5 % Adhesive Patch,Medicated 3 patch Transdermal QAM Qty: 10 RF: 0 oxycodone 5 mg Tablet 10 mg PO Q6 PRN (Reason: Pain) Qty: 12 RF: 0 Discharge Orders: Discharge Order (Routine); Ordered 06/11/19 Ordered By: Adam Caldera/Other Patient Handouts: Metoprolol Tartrate Oral tablet, Omeprazole Magnesium Oral capsule gastro-resistant, Dexamethasone Oral tablet, Injury Acute Kidney Dc Admission Data Admit Date/Time: 06/06/19 00:46 Attending Provider: Jaquan Jaeger Admit Provider: Najma Ulrich Primary Care Provider: Albino Mcmanus Other Providers: Travis Andersen V ; Lang Stephen ; Abril Rebolledo Other Interventions: Discharge Summary Assessment (RN) Last Done: 06/11/19 11:26 Supervising Physician Co-Signing Physician Notes I saw the patient with the resident physician and confirmed cub[place] portion of the history and physical exam. I also discussed the plan with nephrology and hematology. Agree with the impression and plan as noted above. Patient will be discharged today. She will take her fourth dose of Decadron tomorrow. She will be seen as an outpatient cancer care partnership tomorrow to begin her Velcade. I discussed with the patient at length regarding her current blood counts and her risk of venous thromboembolism -upon discharge today, we opted not to put her on Lovenox due to her decreased platelet count, anemia, elevated creatinine, and elevated INR secondary to hepatic dysfunction. Resident Activity Tracking Resident Involvement: Resident Care Provided Care Provided: Adult Hospital Medicine
[2019-06-12 11:37] LABS: Creatinine Ur 44 MG/DL (20-275); Protein, Urine 24 Hour 2618 MG/24HRS. (0-149); Total Protein, Urine 187 MG/DL; Urine Protein/Creatinine Ratio 4250 (<OR=115)
== END 2019-06-11 17:45 | disposition home or self-care (01) | DRG 682 ==
LOC: 2E → SUATTDRO 06-06 00:46 → OBSVTOIN 06-06 00:46

== ENCOUNTER 2019-06-16 16:02 | Inpatient (IN) ==
[2019-06-16] MEDS ORDERED: SODIUM CHLORIDE 0.9% 500 ML IV STA (16:19)
--- NOTE | 2019-06-16 16:40 | XRay Report ---
XR chest 1V portable CLINICAL HISTORY: 68 years-old Female presenting with Chest Pain. TECHNIQUE: Portable upright AP view of the chest was obtained. COMPARISON: CTA chest from 08/08/2018. FINDINGS: Atherosclerosis of the aortic arch. Cardiac silhouette enlarged. Pulmonary vascular prominence. No fo shubham opacity. No large effusion or pneumothorax. Osteopenia may be present. Upper abdomen normal. IMPRESSION: 1. Cardiomegaly with volume overload. No abdiel pulmonary edema. Electronically signed by: Lan Pineda M.D. 06/16/2019 4:38 PM
[2019-06-16 16:45] LABS: INR 1.3 (0.9-1.1); Prothrombin Time 12.9 Seconds (9.0-12.0)
[2019-06-16 17:15] LABS: Hematocrit (blood only) 21.2 % (37-47); Mean Corpuscular Hemoglobin 32.9 pg (25-34); Mean Corpuscular Volume 99.5 fL (80-100); Mean Platelet Volume 11.6 fL (7.4-10.4); Nucleated RBC # (auto) 0.16 K/uL (0-0); Nucleated RBC % (auto) 6.5 %; Platelet Count 15 K/uL (130-400); RDW Coefficient of Variation 20.5 % (11.5-14.5); RDW Standard Deviation 72.5 fL (36.4-46.3); Red Blood Count 2.13 M/uL (4.2-5.4); White Blood Count 2.55 K/uL (4.8-10.8)
[2019-06-16 17:17] LABS: Alanine Aminotransferase 75 U/L (12-78); Albumin Globulin Ratio 0.4 (0.9-2); Albumin Level 2.5 gm/dl (3.4-5.0); Alkaline Phosphatase 81 U/L (45-117); Aspartate Aminotransferase 40 U/L (15-37); BUN Creatinine Ratio 20.7 (10-20); Bilirubin Direct 0.4 mg/dl (0-0.2); Bilirubin,Total 0.7 mg/dl (0.2-1); Blood Urea Nitrogen 104 mg/dl (7-18); Calcium 5.8 mg/dl (8.5-10.1); Carbon Dioxide 19 mmol/L (21-32); Chloride 114 mmol/L (98-107); Creatinine Clr Calc Pharmacy 12.9 ml/min; Est GFR (African American) 9.7; Est GFR (Non-African American) 8.4; Globulin 5.6 gm/dl (2.5-4.0); Glucose 149 mg/dl (70-99); Lipase 65 U/L (73-393); Magnesium 1.9 mg/dl (1.8-2.4); Phosphorus 3.2 mg/dl (2.5-4.9); Potassium 4.5 mmol/L (3.5-5.1); Sodium 145 mmol/L (136-145); Total Protein 8.1 gm/dl (6.4-8.2); Troponin I < 0.015 ng/ml (0-0.045)
[2019-06-16 17:38] LABS: ALC (manual) 0.31 K/uL (1.2-3.4); ANC (manual) 1.89 K/uL (1.4-6.5); Eosinophils # (manual) 0.03 K/uL (0-0.5); Lymphocytes # (manual) 0.31 K/uL (1.2-3.4); Metamyelocytes # (manual) 0.18 K/uL (0-0); Monocytes # (manual) 0.13 K/uL (0.11-0.59); Myelocytes # (manual) 0.03 K/uL (0-0); Neutrophils # (manual) 1.89 K/uL (1.4-6.5); Rouleaux 1+; Toxic Granulation 1+
--- NOTE | 2019-06-16 18:01 | CT Scan Report ---
CT abd pelvis wo con CLINICAL HISTORY: 68 years-old Female presenting with melena, generalized abdominal pain. TECHNIQUE: Multidetector CT of the abdomen and pelvis was performed without the use of intravenous co ntrast. IV contrast: None. One or more dose lowering techniques were used consistent with the princip les of ALA (as low as reasonably achievable), including automatic exposure control, mA or kV adjust ment to individual patient size, and/or use of iterative reconstruction. COMPARISON: None. CT DOSE (mGy.cm): The estimated cumulative dose is 1096.84 mGy.cm. FINDINGS: Meeting/Event Planner topogram: Cholecystectomy clips. Lung bases: Mild multichamber enlargement of the heart. The lower density of the blood pool relative to myocardium suggests anemia. No pericardial or pleural effusion. Mosaic attenuation. Minimal tree-i n-bud opacities in a peribronchial vascular distribution of the central right lower lobe (series 3 im age 8). Liver: Normal morphology. Density consistent with hepatic steatosis. Biliary: No gross biliary ductal dilatation allowing for noncontrast technique. Fat stranding along t he distal extrahepatic bile duct. Gallbladder surgically absent. Pancreas: Fat stranding along the superior portion of the pancreatic head. Mild parenchymal atrophy, which is moderate in the pancreatic head. The fat stranding does not appear to be within the parenchy ma or emanating from the pancreas itself. Spleen: Normal noncontrast appearance. Adrenal glands: Normal noncontrast appearance. Kidneys and ureters: Bilateral nephrolithiasis. Multifocal scarring in the left kidney. Dominant exop hytic cyst in the lower pole the right kidney. No hydronephrosis. Ureters nondistended. Bladder: Normal noncontrast appearance. Pelvic organs: Uterus surgically absent. No adnexal masses. Possible loculated fluid in the right adn exa or cul-de-sac. Bowel: Diverticulosis of the mid sigmoid colon without pericolonic inflammatory change or wall thicke nina. Minimal stranding in this region is felt to most likely be due to either prior scarring or trac e ascites, which is present. Fluid in the colon suggests a diarrheal state, not unexpected given the history of melena. The appendix is not visualized. No bowel obstruction. Inflammatory changes along t he duodenal bulb and descending duodenum. This minimally tracks along the bile ducts and pancreatic h ead though appears to be centered at the duodenum. Trace periduodenal retroperitoneal fluid. Peritoneal cavity: Trace ascites. Fluid in the cul-de-sac or right adnexa may be free or loculated. T he density is most likely reflective of simple ascites and not overly convincing for hemoperitoneum. Lymph nodes: No gross lymphadenopathy allowing for noncontrast technique. Vasculature: Atherosclerosis of the normal caliber abdominal aorta. Abdominal wall: Foci of nodular infiltration and trace skin thickening in the anterior abdominal wall likely from medication administration. Mild body wall edema. Musculoskeletal: Degenerative changes of the spine. Numerous lytic foci throughout the skeleton. Evid ence of old left rib fractures. Mild to moderate compression deformity of L1, which may in part be on a pathologic basis. Retropulsion of the posterior cortex of the inferior aspect of the vertebral bod y with moderate to severe spinal canal narrowing. IMPRESSION: 1. Inflammatory changes in the duodenal bulb and descending duodenum concerning for duodenitis or du odenal ulcer. This is suspected to be the etiology for an upper gastrointestinal hemorrhage. 2. Inflammatory changes appear to emanate from the duodenum rather than related to the extra hepatic bile ducts are pancreas. Correlate with lab values to exclude these etiologies. 3. Trace abdominal pelvic ascites. 4. Numerous osseous lytic foci most suggestive of metastatic disease or multiple myeloma. 5. Mild to moderate compression fracture of L1, which may be pathologic. Resulting retropulsion with moderate to severe spinal canal stenosis. 6. Interval tree-in-bud peribronchovascular right lower lobe infiltrates, possibly developing infect ious bronchiolitis or more likely trace aspiration. 7. Additional findings as above. Electronically signed by: Lan Pineda M.D. 06/16/2019 5:59 PM
[2019-06-16] MEDS ORDERED: PANTOprazole 80 MG in DEXTROSE 5% 100 ML IV ONE (18:45)
[2019-06-16] MEDS ORDERED: SODIUM CHLORIDE 0.9% 250 ML IV PRN (18:45)
[2019-06-16] MEDS ORDERED: ZOLPIDEM TARTRATE 5 MG TAB PO PRN (20:22)
[2019-06-16] MEDS ORDERED: ACETAMINOPHEN 325 MG TAB PO PRN (20:22)
[2019-06-16] MEDS ORDERED: ONDANSETRON INJ 2 MG/ML 2 ML VIAL IV PRN (20:22)
[2019-06-16] MEDS ORDERED: POLYETHYLENE (MIRALAX) 17 GM PACK PO PRN (20:22)
[2019-06-16] MEDS ORDERED: ALUMINUM/MAGNESIUM SUSP 30 ML UDC PO PRN (20:22)
[2019-06-16] MEDS ORDERED: MAGNESIUM HYDROXIDE SUSP 30 ML UDC PO PRN (20:22)
[2019-06-16] MEDS ORDERED: OXYCODONE HCL IR 5 MG TAB (IMMEDIATE RELEASE) PO PRN (20:32)
[2019-06-16] MEDS ORDERED: PROCHLORPERAZINE MALEATE 10 MG TAB PO PRN (20:32)
--- NOTE | 2019-06-16 21:06 | Emergency Department Note ---
Entered by Ilsa Lester acting as a scribe for Jesse Ann MD History of Present Illness General Chief complaint: GI Assessment Time Seen by Provider: 06/16/19 16:09 Source: patient and family History of Present Illness Onset (ago): day(s) 5 Location: abdomen Pain Consistency: + other (episode) Maximum Pain Intensity: 0 Quality: + other (GI assessment) Associated symptoms: + weakness and + other (melena) The patient is a 68 year old female who presents to the Emergency Room for a GI assessment. The patients daughter states that the patient was recently admitted to the hospital and just told her today that she has been having melena since being discharged. She states that the patient was transfused at the [facility] 3 days ago for platelets and RBCs. She notes that she was supposed to go back yesterday, but was too weak to do so. The patient denies being on any iron supplements. Home Medications Home Medications Medication Instructions Recorded Confirmed Type aspirin [Vika Aspirin] 325 mg PO QAM 08/08/18 06/16/19 History sertraline [Zoloft] 100 mg PO BID 08/08/18 06/16/19 History oxycodone 10 mg PO Q6 PRN #12 tab 08/16/18 06/16/19 Rx lenalidomide [Revlimid] 25 mg PO DAILY 06/13/19 06/16/19 History acyclovir 400 mg PO BID 06/16/19 06/16/19 History dexamethasone 4 mg PO DIRECTED 06/16/19 06/16/19 History diphenhydramine-acetaminophen 1 tab PO HS PRN 06/16/19 06/16/19 History [Tylenol PM Extra Strength] omeprazole 40 mg PO QAM 06/16/19 06/16/19 History prochlorperazine maleate 10 mg PO Q6H PRN 06/16/19 06/16/19 History Allergies Allergy/AdvReac Type Severity Reaction Status Date / Time ibuprofen AdvReac Tachycardia Verified 06/16/19 17:09 Past Med/Surg History Medical History History of TIA (transient ischemic attack) JACQUIE (acute kidney injury) History of TIA (transient ischemic attack) History of hysterectomy Leukopenia Mood disorder Multiple myeloma Family History Other Family history non-contributory Social History Preferred Language: Citizen Of [place] Communication Ability: Effective Visual Impairment: No Limitations Hearing Ability: Normal 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 and A total of 10 systems reviewed and were otherwise negative Physical Exam Vital Signs Vital Signs - 24 hr 06/16/19 16:09 06/16/19 16:31 06/16/19 18:00 Temperature 36.5 C Temperature Source Oral Sepsis Recent Fever Within 48 Hours No Sepsis New/Unexplained Change in Mental Status No Sepsis Action Taken by Nursing No Action Required Pulse Rate 87 88 Pulse Rate [Apical] 82 Pulse Rhythm [Apical] Regular Respiratory Rate 16 17 Respiratory Effort / Characteristics Non-Labored Spontaneous Respiratory Depth Normal Respiratory Pattern Regular Blood Pressure 110/70 Blood Pressure [Right Arm] 104/68 Blood Pressure Mean 83 Blood Pressure Mean [Right Arm] 80 Pulse Oximetry 98 98 96 Oxygen Delivery Method Room Air Room Air Room Air 06/16/19 20:20 Temperature 36.5 C Temperature Source Oral Sepsis Recent Fever Within 48 Hours Sepsis New/Unexplained Change in Mental Status Sepsis Action Taken by Nursing Pulse Rate 76 Pulse Rate [Apical] Pulse Rhythm [Apical] Respiratory Rate 22 Respiratory Effort / Characteristics Respiratory Depth Respiratory Pattern Blood Pressure 113/72 Blood Pressure [Right Arm] Blood Pressure Mean 85 Blood Pressure Mean [Right Arm] Pulse Oximetry 97 Oxygen Delivery Method GENERAL: Awake, alert, chronically ill-appearing, in no distress. BMI of 36.2. HENT: Normocephalic, atraumatic. Oropharynx unremarkable. EYES: Normal conjunctiva. Sclera non-icteric. NECK: Supple. No nuchal rigidity. FROM. No JVD. RESPIRATORY: Diminished at bases and otherwise clear to auscultation bilaterally. CARDIAC: Regular rate, normal rhythm. Extremities warm and well perfused. Pulses equal. ABDOMEN: Soft, non-distended. No tenderness to palpation. No rebound or guarding. No masses. Scattered resolving ecchymosis across her lower abdomen from her prior Lovenox injections. RECTAL: Melena present. Guaiac positive.. No gross hemorrhage. MUSCULOSKELETAL: Chest examination reveals no tenderness. The back is symmetrical on inspection without obvious abnormality. There is no CVA tend erness to palpation. No joint edema. LOWER EXTREMITIES: Calves are equal size bilaterally and non-tender. No edema. No discoloration. NEURO: Normal sensorium. No sensory or motor deficits noted. SKIN: No rash or jaundice noted. Course 161: Past medical records reviewed. The patient was evaluated in room B7. A complete history and physical exam was performed. 1656: I reviewed the EMR at this time. The patient has a history of multiple my eloma and extensive lytic lesions. She was admitted for acute renal failure from 06/06 to 06/11. At the time of discharge, the patient had pancytopenia, a hemoglobin of 7.1, and a platelet count of 25. She had a right leg DVT that was diagnosed in April of 2019. She recently had blood worked one on the that was stable. 1818: I reevaluated the patient and performed a rectal exam at this time with a female nurse hand spring former. I updated her and her family on her test results. I discussed the treatment plan with them. They verbally agree and understand. 1917: I discussed the patient's case with Dr. Angela FLOWERS Hospitalist. He will evaluate the patient for further management. Consultations Consultation #1: I discussed the patient's case with Dr. Angela FLOWERS Hospitalist. He will evaluate the patient for further management. Time: 19:18 Administered Medications Acyclovir (Zovirax) 200 mg PO BID JOVANY Stop: 07/16/19 20:59 Last Admin: 06/16/19 22:33 Dose: Not Given Documented by: [id number] Pantoprazole Sodium 40 mg/ (Dextrose) 100 mls @ 20 mls/hr IV Q5H JOVANY Stop: 07/16/19 18:59 Last Admin: 06/17/19 01:11 Dose: 20 mls/hr Documented by: [id number] Infusion: 06/17/19 01:11 Dose: 20 mls/hr Documented by: [id number] Admin: 06/16/19 21:38 Dose: 20 mls/hr Documented by: [id number] Sodium Chloride (Nss 1000ml) 1,000 mls @ 50 mls/hr IV .Q20H JOVANY Stop: 07/16/19 20:29 Last Admin: 06/17/19 01:11 Dose: Not Given Documented by: [id number] Miscellaneous (Order Awaiting Action) 1 ea N/A QS JOVANY Stop: 07/17/19 00:00 Last Admin: 06/17/19 01:11 Dose: Not Given Documented by: [id number] Sertraline HCl (Zoloft) 50 mg PO BID JOVANY Stop: 07/16/19 20:59 Last Admin: 06/16/19 22:32 Dose: 50 mg Documented by: [id number] Discontinued Medications Sodium Chloride (Nss) 500 mls @ 125 mls/hr IV .Q4H STA Stop: 06/16/19 20:18 Last Infusion: 06/16/19 20:37 Dose: 0 mls/hr Documented by: [id number] Admin: 06/16/19 16:36 Dose: 125 mls/hr Documented by: [id number] Pantoprazole Sodium 80 mg/ (Dextrose) 120 mls @ 480 mls/hr IV NOW ONE Stop: 06/16/19 18:59 Last Infusion: 06/16/19 21:55 Dose: 0 mls/hr Documented by: [id number] Admin: 06/16/19 21:38 Dose: 480 mls/hr Documented by: [id number] Medical Decision Making Differential Diagnosis Differential diagnosis: Etiologies such as esophagitis, variceal bleed, Boerhaaves, [place] tear, gastritis, peptic ulcer disease, AVM, inflammatory bowel disease, ischemia, diverticulosis, colitis, malignancy, coagulopathy, thrombocytopenia, fissure, hemorrhoid, epistaxis , as well as others were entertained. Medical Records Attestation: I reviewed the patient's medical records. Home Medications Current Medication List: was personally reviewed by me Laboratory Data Attestation: I reviewed the patient's lab results. Result diagrams: 06/16/19 16:20 06/16/19 16:20 Lab Results 06/16/19 06/16/19 06/16/19 Range/Units 16:20 16:20 16:20 WBC 2.55 L (4.8-10.8) K/uL RBC 2.13 L (4.2-5.4) M/uL Hgb 7.0 L (12.0-16.0) g/dL Hct 21.2 L (37-47) % MCV 99.5 (80-100) fL MCH 32.9 (25-34) pg MCHC 33.0 (32-36) g/dL RDW Std Deviation 72.5 H (36.4-46.3) fL RDW Coeff of Kimberly 20.5 H (11.5-14.5) % Plt Count 15 L* (130-400) K/uL MPV 11.6 H (7.4-10.4) fL Absolute Nucleated RBC 0.16 H (0-0) K/uL Nucleated RBC % (auto) 6.5 % Neutrophils % (Manual) 74.0 % Lymphocytes % (Manual) 12.0 % Monocytes % (Manual) 5.0 % Eosinophils % (Manual) 1.0 % Metamyelocytes % (Man) 7.0 % Myelocytes % (Man) 1.0 % Neutrophils # (Manual) 1.89 (1.4-6.5) K/uL Total Absolute Neuts 1.89 (1.4-6.5) K/uL Lymphocytes # (Manual) 0.31 L (1.2-3.4) K/uL Total Abs Lymphocytes 0.31 L (1.2-3.4) K/uL Monocytes # (Manual) 0.13 (0.11-0.59) K/uL Eosinophils # (Manual) 0.03 (0-0.5) K/uL Metamyelocytes # (Man) 0.18 H (0-0) K/uL Myelocytes # (Manual) 0.03 H (0-0) K/uL Toxic Granulation 1+ Rouleaux 1+ PT 12.9 H (9.0-12.0) Seconds INR 1.3 H (0.9-1.1) Sodium 145 (136-145) mmol/L Potassium 4.5 (3.5-5.1) mmol/L Chloride 114 H (98-107) mmol/L Carbon Dioxide 19 L (21-32) mmol/L Anion Gap 11.0 (3-11) BUN 104 H (7-18) mg/dl Creatinine 5.00 H* (0.6-1.2) mg/dl Est Cr Clr Drug Dosing 12.9 ml/min Est GFR ( Amer) 9.7 Est GFR (Non-Af Amer) 8.4 BUN/Creatinine Ratio 20.7 H (10-20) Glucose 149 H (70-99) mg/dl Calcium 5.8 L* (8.5-10.1) mg/dl Phosphorus 3.2 (2.5-4.9) mg/dl Magnesium 1.9 (1.8-2.4) mg/dl Total Bilirubin 0.7 (0.2-1) mg/dl Direct Bilirubin 0.4 H (0-0.2) mg/dl AST 40 H (15-37) U/L ALT 75 (12-78) U/L Alkaline Phosphatase 81 (45-117) U/L Troponin I < 0.015 (0-0.045) ng/ml Total Protein 8.1 (6.4-8.2) gm/dl Albumin 2.5 L (3.4-5.0) gm/dl Globulin 5.6 H (2.5-4.0) gm/dl Albumin/Globulin Ratio 0.4 L (0.9-2) Lipase 65 L (73-393) U/L Hepatitis C Ab Screen (Neg) Blood Type Antibody Screen Crossmatch 06/16/19 06/16/19 Range/Units 16:20 16:46 WBC (4.8-10.8) K/uL RBC (4.2-5.4) M/uL Hgb (12.0-16.0) g/dL Hct (37-47) % MCV (80-100) fL MCH (25-34) pg MCHC (32-36) g/dL RDW Std Deviation (36.4-46.3) fL RDW Coeff of Kimberly (11.5-14.5) % Plt Count (130-400) K/uL MPV (7.4-10.4) fL Absolute Nucleated RBC (0-0) K/uL Nucleated RBC % (auto) % Neutrophils % (Manual) % Lymphocytes % (Manual) % Monocytes % (Manual) % Eosinophils % (Manual) % Metamyelocytes % (Man) % Myelocytes % (Man) % Neutrophils # (Manual) (1.4-6.5) K/uL Total Absolute Neuts (1.4-6.5) K/uL Lymphocytes # (Manual) (1.2-3.4) K/uL Total Abs Lymphocytes (1.2-3.4) K/uL Monocytes # (Manual) (0.11-0.59) K/uL Eosinophils # (Manual) (0-0.5) K/uL Metamyelocytes # (Man) (0-0) K/uL Myelocytes # (Manual) (0-0) K/uL Toxic Granulation Rouleaux PT (9.0-12.0) Seconds INR (0.9-1.1) Sodium (136-145) mmol/L Potassium (3.5-5.1) mmol/L Chloride (98-107) mmol/L Carbon Dioxide (21-32) mmol/L Anion Gap (3-11) BUN (7-18) mg/dl Creatinine (0.6-1.2) mg/dl Est Cr Clr Drug Dosing ml/min Est GFR ( Amer) Est GFR (Non-Af Amer) BUN/Creatinine Ratio (10-20) Glucose (70-99) mg/dl Calcium (8.5-10.1) mg/dl Phosphorus (2.5-4.9) mg/dl Magnesium (1.8-2.4) mg/dl Total Bilirubin (0.2-1) mg/dl Direct Bilirubin (0-0.2) mg/dl AST (15-37) U/L ALT (12-78) U/L Alkaline Phosphatase (45-117) U/L Troponin I (0-0.045) ng/ml Total Protein (6.4-8.2) gm/dl Albumin (3.4-5.0) gm/dl Globulin (2.5-4.0) gm/dl Albumin/Globulin Ratio (0.9-2) Lipase (73-393) U/L Hepatitis C Ab Screen Neg (Neg) Blood Type A Positive Antibody Screen NEGATIVE Crossmatch See Detail Imaging Data Radiologist's Impression: Radiology results as stated below per my review and the radiologist's interpretation: XR chest 1V portable CLINICAL HISTORY: 68 years-old Female presenting with Chest Pain. TECHNIQUE: Portable upright AP view of the chest was obtained. COMPARISON: CTA chest from 08/08/2018. FINDINGS: Atherosclerosis of the aortic arch. Cardiac silhouette enlarged. Pulmonary vascular prominence. No focal opacity. No large effusion or pneumothorax. Osteopenia may be present. Upper abdomen normal. IMPRESSION: 1. Cardiomegaly with volume overload. No abdiel pulmonary edema. Electronically signed by: Lan Pineda M.D. 06/16/2019 4:[address] abd pelvis wo con CLINICAL HISTORY: 68 years-old Female presenting with melena, generalized abdominal pain. TECHNIQUE: Multidetector CT of the abdomen and pelvis was performed without the use of intravenous contrast. IV contrast: None. One or more dose lowering techniques were used consistent with the principles of ALARA (as low as reasonably achievable), including automatic exposure control, mA or kV adjustment to individual patient size, and/or use of iterative reconstruction. COMPARISON: None. CT DOSE (mGy.cm): The estimated cumulative dose is 1096.84 mGy.cm. FINDINGS: Systems Project Manager topogram: Cholecystectomy clips. Lung bases: Mild multichamber enlargement of the heart. The lower density of the blood pool relative to myocardium suggests anemia. No pericardial or pleural effusion. Mosaic attenuation. Minimal tree-in-bud opacities in a peribronchial vascular distribution of the central right lower lobe (series 3 image 8). Liver: Normal morphology. Density consistent with hepatic steatosis. Biliary: No gross biliary ductal dilatation allowing for noncontrast technique. Fat stranding along the distal extrahepatic bile duct. Gallbladder surgically absent. Pancreas: Fat stranding along the superior portion of the pancreatic head. Mild parenchymal atrophy, which is moderate in the pancreatic head. The fat stranding does not appear to be within the parenchyma or emanating from the pancreas itself. Spleen: Normal noncontrast appearance. Adrenal glands: Normal noncontrast appearance. Kidneys and ureters: Bilateral nephrolithiasis. Multifocal scarring in the left kidney. Dominant exophytic cyst in the lower pole the right kidney. No hydronephrosis. Ureters nondistended. Bladder: Normal noncontrast appearance. Pelvic organs: Uterus surgically absent. No adnexal masses. Possible loculated fluid in the right adnexa or cul-de-sac. Bowel: Diverticulosis of the mid sigmoid colon without pericolonic inflammatory change or wall thickening. Minimal stranding in this region is felt to most likely be due to either prior scarring or trace ascites, which is present. Fluid in the colon suggests a diarrheal state, not unexpected given the history of melena. The appendix is not visualized. No bowel obstruction. Inflammatory changes along the duodenal bulb and descending duodenum. This minimally tracks along the bile ducts and pancreatic head though appears to be centered at the duodenum. Trace periduodenal retroperitoneal fluid. Peritoneal cavity: Trace ascites. Fluid in the cul-de-sac or right adnexa may be free or loculated. The density is most likely reflective of simple ascites and not overly convincing for hemoperitoneum. Lymph nodes: No gross lymphadenopathy allowing for noncontrast technique. Vasculature: Atherosclerosis of the normal caliber abdominal aorta. Abdominal wall: Foci of nodular infiltration and trace skin thickening in the anterior abdominal wall likely from medication administration. Mild body wall edema. Musculoskeletal: Degenerative changes of the spine. Numerous lytic foci throughout the skeleton. Evidence of old left rib fractures. Mild to moderate compression deformity of L1, which may in part be on a pathologic basis. Retropulsion of the posterior cortex of the inferior aspect of the vertebral body with moderate to severe spinal canal narrowing. IMPRESSION: 1. Inflammatory changes in the duodenal bulb and descending duodenum concerning for duodenitis or duodenal ulcer. This is suspected to be the etiology for an upper gastrointestinal hemorrhage. 2. Inflammatory changes appear to emanate from the duodenum rather than related to the extra hepatic bile ducts are pancreas. Correlate with lab values to exclude these etiologies. 3. Trace abdominal pelvic ascites. 4. Numerous osseous lytic foci most suggestive of metastatic disease or m ultiple myeloma. 5. Mild to moderate compression fracture of L1, which may be pathologic. Resulting retropulsion with moderate to severe spinal canal stenosis. 6. Interval tree-in-bud peribronchovascular right lower lobe infiltrates, possibly developing infectious bronchiolitis or more likely trace aspiration. 7. Additional findings as above. Electronically signed by: Lan Pineda M.D. 06/16/2019 5:59 PM ECG Data Attestation: I personally reviewed and interpreted this ECG as follows: Indication: weakness Rate (beats per minute): 79 Rhythm: sinus rhythm Findings: + other (normal axis), + PAC (occasional) and + PVC (occasional); no ST depression, no ST elevation and no acute ischemic change Blood Pressure Blood Pressure Findings: Normal blood pressure Blood Pressure Disposition: did not require urgent referral MDM Narrative The patient is a pleasant 68-year-old woman with a comp gated past medical history of multiple myeloma undergoing treatment, renal failure, pancytopenia with history of requiring RBC and platelet transfusions who presents emergency department with melanotic stools over the past several days per hpi. Of note the patient did have blood transfusion of PRBCs and platelets per her report on Wednesday however review of her blood work shows minimal change and slight decline in hemoglobin from 7.4-7.0 and platelets from 25-15. On arrival patient is chronically ill-appearing but no acute distress, afebrile stable vital signs. She has mild upper abdominal discomfort without discrete tenderness. She has resolving ecchymosis to her lower abdomen from previous Lovenox injections. There is no crepitus. Rectal exam demonstrates melena that is guaiac positive. There is no gross red blood or hemorrhage. Chest x-ray with vascular prominence but no overt failure. EKG without overt acute ischemia. WBC 2.5 similar to prior values. H/H7 0.0/21.2 again slightly decreased from recent and in the setting of transfusion. Platelets 15 again decreased from prior. Creatinine 5.0 increased from recent however within patient's range of values over the past month. BUN 100 which likely reflects a component of likely upper GI bleed. Troponin negative. AST slightly elevated at 40 though has been higher. CT abdomen pelvis demonstrates inflammatory changes to the duodenum suspicious for duodenitis versus ulcer. Patient was ordered for Protonix bolus and drip. Additionally given her symptoms of weakness and declining H/H and platelets she was ordered for blood transfusion of PRBCs and platelets. I did contact the blood bank and they confirm that the patient receives irradiated products and therefore these were ordered. Case was discussed with Dr. Miller, [facility] [place], who evaluate the patient for admission. Impression & Plan GI bleed, Thrombocytopenia, Symptomatic anemia, Melena Critical Care Time Critical Care Time: Yes Total Critical Care Time: 75 I have personally spent greater than 75 minutes of critical care time in the direct management of this patient. This includes bedside care, interpretation of diagnostic studies, and testing, discussion with consultants, patient, and family members, and other required patient management activities. This 75 minutes is in excess of all separately billable procedures. Discharge Plan Visit Data *Final* Discharge Date/Time: 06/16/19 21:17 Chief Complaint: GI Assessment ED Provider: Jesse Ann Discharge Problem: GI bleed, Thrombocytopenia, Symptomatic anemia, Melena Patient Disposition: Admitted As Inpatient Discharge Instructions Interventions: ED Discharge Assessment Last Done: 06/16/19 21:17 Discharge Problem: GI bleed Qualifiers: GI bleed type/associated pathology: unspecified gastrointestinal hemorrhage t ype Qualified Code(s): K92.2 - Gastrointestinal hemorrhage, unspecified The scribe's documentation has been prepared under my direction and personally reviewed by me in its entirety. I confirm that the note above accurately reflects all work, treatment, procedures, and medical decision making performed by me.
--- NOTE | 2019-06-16 21:13 | History & Physical Report ---
Date of Service June 16, 2019 Assessment & Plan (1) Melena: admit to telemtry serial hemoglobin check Protonix drip GI consult N.p.o. after midnight 2 units packed RBCs transfusion 1 unit platelet transfusion If platelet count is above 20 tomorrow can initiate SCD boots for DVT prophy laxis. (2) Pancytopenia: Status post 2 units packed RBCs Status post 1 unit plasmapheresis We will check labs in a.m. Consult mud tank operator, Dr. Awad family inquiring if she can have her chemotherapy prior to discharge (3) History of DVT (deep vein thrombosis): Unfortunately unable to start her on any pharmacologic DVT prophylaxis As soon as platelets are stable and hemoglobin are stable please start some form of DVT prophylaxis. Due to the very low platelets would also avoid SCD boots for now Can be started tomorrow after platelets count check (4) Multiple myeloma: This is recurrence, unfortunately with severe pancytopenia Family requested Dr. Bowman to consider giving care her chemotherapy prior to discharge, I explained to them that if it is possible of sure he will do it but sometimes she needs to take a break from chemotherapy, if insurance is an obstacle she can be discharged to get her session in infusion center in the day of discharge after discharge. But will leave this to the discretion of her oncologist Dr. Bowman History of Present Illness 68-year-old female with past medical history of newly diagnosed multiple myeloma in July 2018 status post chemotherapy through February 2019 patient stayed in remission until mid May where she was diagnosed with recurrence of her multiple myeloma, found to have pancytopenia, patient was restarted on the chemotherapy again, recently was admitted with acute kidney injury and severe pancytopenia. Patient was followed up by chemical maker, fortunately she was making good amount of urine, likely ATN secondary to multiple myeloma, hypertension, chemotherapy. After discharge on 06/11/2018 patient started having slight diarrhea and multiple episodes of black tarry stool. Presented to the ED and was found to have a hemoglobin of 7, platelets of 15 other than that blood pressure is stable, Her creatinine is 5, calcium is 5.8, but potassium is within normal limits. ED physician ordered 2 units of packed RBCs, 1 unit of plasmapheresis, and started Protonix drip. She was also ordered 1 g of calcium, and will be admitted for further evaluation and management Primary Care Provider: Albino Mcmanus Allergies Allergy/AdvReac Type Severity Reaction Status Date / Time ibuprofen AdvReac Tachycardia Verified 06/16/19 17:09 Home Medications Home Medications Medication Instructions Recorded Confirmed Type aspirin [Vika Aspirin] 325 mg PO QAM 08/08/18 06/16/19 History sertraline [Zoloft] 100 mg PO BID 08/08/18 06/16/19 History oxycodone 10 mg PO Q6 PRN #12 tab 08/16/18 06/16/19 Rx lenalidomide [Revlimid] 25 mg PO DAILY 06/13/19 06/16/19 History acyclovir 400 mg PO BID 06/16/19 06/16/19 History dexamethasone 4 mg PO DIRECTED 06/16/19 06/16/19 History diphenhydramine-acetaminophen 1 tab PO HS PRN 06/16/19 06/16/19 History [Tylenol PM Extra Strength] omeprazole 40 mg PO QAM 06/16/19 06/16/19 History prochlorperazine maleate 10 mg PO Q6H PRN 06/16/19 06/16/19 History Past Med/Surg History Medical History History of TIA (transient ischemic attack) History of hysterectomy Leukopenia Mood disorder Multiple myeloma Family History Other Family history non-contributory Social History Preferred Language: Zimbabwean Communication Ability: Effective Visual Impairment: No Limitations Hearing Ability: Normal Head Porter Required: No Beliefs That Will Affect Care: None Current Living Situation: Alone Current Living Situation Comment: lives with son Feels Safe at Home: Yes Smoking Status: Former smoker Second Hand Exposure: No ; Hx Alcohol Use: No Hx Substance Use: No Review of Systems Review of Systems: Review of system Constitutional: No fever / no chills / no sweats / no weakness / no fatigue Eyes: no blurring of vision / no eye pain / no discharge / no redness ENT: no hearing loss / no epistaxis /no swallowing problems Respiratory: no cough / no wheezing / no SOB / no hemoptysis Cardiovascular: no Chest pain / no lower extremity edema / no palpitation Abdomen: Melena/initially diarrhea but currently better musculoskeletal: no joint pain / no muscle pain / no joint swelling Genitourinary: no dysuria / no incontinence / no urinary retention Neurologic: no focal weakness / no numbness/tingling / no ataxia Psychiatric: no depression symptoms / no anxiety / no insomnia Endocrine: no excessive thirst / no excessive urination Hematologic: no abnormal bleeding / no bruising / no LN swelling Skin: No rash / no pallor severe fatigue and weakness, feeling weak weak all the time Physical Exam Physical Exam: General obese, appears sick in moderate acute distress HEENT: Atraumatic , normocephalic /no jaundice /no pallor /anicteric /no dry muc ous membrane /normal external ear inspection Neck: Supple /no swelling /central trach Heart: S1/S2 normal/regular rate and rhythm/no gallop /no rub /no murmur Lungs: Clear to auscultation bilaterally/normal chest with expansion/no rhonchi/no rales/no wheezing/no use of accessory muscles of respiration Abdomen: Soft/nontender/no guarding/no rebound/no organomegaly/no pulsatile mass Musculoskeletal: No swelling/no edema/no tenderness/normal range of motion Neuro exam: Awake alert oriented 3/cranial nerves II through XII appear to be intact/sensation intact/moves all extremities/no abnormal movements Psychiatric evaluation: No depressed mood/normal affect Skin: No rash on exposed skin area/no erythema Extremity: Normal pulse/no pitting edema/no clubbing or cyanosis Results & Data Vital Signs (Past 12 Hours) Vital Signs Temp Pulse Pulse Resp BP BP Pulse Ox 06/16/19 20:20 36.5 C 76 22 113/72 97 06/16/19 18:00 82 17 104/68 96 06/16/19 16:31 88 98 06/16/19 16:09 36.5 C 87 16 110/70 98 Code Status & VTE Plan VTE Prophylaxis Plan VTE Prophylaxis will be ordered: No PG Care Time/CCT Total # of Minutes Spent Total Time Spent with Patient: Total time spent is greater than 50% in coordination of care (as documented) at patient's floor/unit and/or counseling patient: (1) Multiple myeloma Multiple myeloma remission status: unspecified Qualified Code(s): C90.00 - Multiple myeloma not having achieved remission
[2019-06-16] MEDS: PANTOprazole 40 MG in DEXTROSE 5% 100 ML IV SCH (21:38)
[2019-06-16] MEDS ORDERED: ACETAMINOPHEN 500 MG TAB PO PRN (21:46)
[2019-06-16] MEDS: SERTRALINE HCL 50 MG TABLET PO SCH (22:32)
[2019-06-16] MEDS: ACYCLOVIR 200 MG CAP PO SCH (22:33)
[2019-06-17] MEDS: PANTOprazole 40 MG in DEXTROSE 5% 100 ML IV SCH ×5 (01:11→21:14)
[2019-06-17] MEDS: SODIUM CHLORIDE 0.9% 1000ML 1,000 ML IV SCH ×2 (01:11→16:48)
[2019-06-17] MEDS: SERTRALINE HCL 50 MG TABLET PO SCH ×2 (07:51→21:14)
[2019-06-17] MEDS: ACYCLOVIR 200 MG CAP PO SCH ×2 (07:51→21:14)
[2019-06-17] MEDS ORDERED: dexAMETHasone 4 MG TAB PO SCH (09:00)
[2019-06-17] MEDS ORDERED: NON-FORMULARY MEDICATION (Lenalidomide [Revlimid] 25 MG) PO SCH (09:00)
--- NOTE | 2019-06-17 11:27 | Nephrology Consultation ---
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 Imaging is negative for obstruction. Patient did not respond to hydration during last hospitalization. She has not been exposed to nephrotoxic medications -- Volume status and electrolyte balance are acceptable at this time. No acute indication for HD -- Provide gentle hydration -- May need to consider THC and IHD once anemia/thrombocytopenia has been corrected (2) Pancytopenia: -- Pancytopenia due to recent chemotherapy -- Progressive anemia likely due to GIB -- Abd CT w/ changes concerning for duodenal ulcer -- Await GI recommendations (3) Multiple myeloma: -- Await Oncology input History of Present Illness Reason for Consultation: JACQUIE Attending Physician: Naresh Poole MD History of Present Illness Ms. Fuller is a 68 year old white female who is seen at the request of Dr. Poole for evaluation of JACQUIE. Medical records in the EMR were reviewed and are summarized as follows: Ms. Fuller was diagnosed w/ multiple myeloma 08/14 and treated w/ chemotherapy through 03/15. She was diagnosed w/ recurrence 06/15 and resumed treatment. She was hospitalized 06/06/19 - 06/11/19 due to JACQUIE. Creatinine had risen from 1.0 to 4.6. Serum and urine electropheresis studies were positive for monoclonal protein. Benítez catheter was placed and IV hydration provided but condition failed to improve. Patient's volume status and electrolyte balance were acceptable and decision was made to attempt outpatient management. Creatinine was 4.5 at the time of discharge. Since returning home Ms. Fuller has become more lethargic and has developed melena. ED evaluation revealed profound pancytopenia and persistent JACQUIE. Patient has been admitted for GI & Oncology evaluations. Once stabilized, goal is for bone marrow transplant. Allergies Allergy/AdvReac Type Severity Reaction Status Date / Time ibuprofen AdvReac Tachycardia Verified 06/16/19 17:09 Home Medications Home Medications Medication Instructions Recorded Confirmed Type aspirin [Vika Aspirin] 325 mg PO QAM 08/08/18 06/16/19 History sertraline [Zoloft] 100 mg PO BID 08/08/18 06/16/19 History oxycodone 10 mg PO Q6 PRN #12 tab 08/16/18 06/16/19 Rx lenalidomide [Revlimid] 25 mg PO DAILY 06/13/19 06/16/19 History acyclovir 400 mg PO BID 06/16/19 06/16/19 History dexamethasone 4 mg PO DIRECTED 06/16/19 06/16/19 History diphenhydramine-acetaminophen 1 tab PO HS PRN 06/16/19 06/16/19 History [Tylenol PM Extra Strength] omeprazole 40 mg PO QAM 06/16/19 06/16/19 History prochlorperazine maleate 10 mg PO Q6H PRN 06/16/19 06/16/19 History Patient History Medical History History of TIA (transient ischemic attack) JACQUIE (acute kidney injury) History of TIA (transient ischemic attack) History of hysterectomy Leukopenia Mood disorder Multiple myeloma Family History Other Family history non-contributory Social History Preferred Language: Mexican Communication Ability: Effective Visual Impairment: No Limitations Hearing Ability: Normal 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 Beliefs That Will Affect Care: None Current Living Situation: Alone Current Living Situation Comment: lives with son Feels Safe at Home: Yes Smoking Status: Former smoker Second Hand Exposure: No ; Hx Alcohol Use: No Hx Substance Use: No Review of Systems Constitutional: no fever, no chills and no weakness Eyes: no worsening vision and no problem reported Ear, Nose, Mouth, Throat: no problem reported Respiratory: no cough and no dyspnea Cardiovascular: no chest pain, no palpitations and no edema Gastrointestinal: no abdominal pain, no nausea, no vomiting and no diarrhea/loose stools Genitourinary: no dysuria and no hematuria Musculoskeletal: no back pain Integumentary: no rash Neurologic: no falls, no dizziness and no confusion Physical Exam Constitutional: + ill appearing; not in distress Eyes: PERRL, conjunctivae normal, anicteric sclerae ENMT: external ear and nose normal, oropharynx normal Neck: trachea midline, no thyromegaly Respiratory: normal respiratory effort, lungs clear to auscultation Cardiovascular: RRR, no murmur, no edema Gastrointestinal (Abdomen): normal bowel sounds, soft, nontender, no hepatosplenomegaly Musculoskeletal: Extremities: no cyanosis Skin: no rashes, warm and dry Neurologic: awake; not confused Results & Data Vital Signs (Past 12 Hours) Vital Signs Temp Pulse Resp BP Pulse Ox 06/17/19 10:24 36.6 C 81 16 116/81 99 06/17/19 09:46 36.5 C 81 16 109/71 99 06/17/19 08:46 36.6 C 80 18 108/67 06/17/19 07:46 36.4 C L 77 16 97/62 L 97 06/17/19 07:16 36.4 C L 66 16 97/62 L 97 06/17/19 07:01 36.7 C 73 18 102/62 97 06/17/19 06:45 36.7 C 79 18 102/70 97 06/17/19 04:53 36.6 C 60 18 94/58 L 97 06/17/19 03:08 36.4 C L 88 20 95/63 L 97 06/17/19 02:08 36.4 C L 77 18 108/54 L 97 06/17/19 01:38 36.7 C 80 20 113/74 97 06/17/19 01:23 37.1 C 82 18 103/63 97 06/17/19 01:07 36.6 C 85 18 99/64 L 97 06/16/19 23:55 77 Laboratory Results Laboratory Tests 06/16/19 06/16/19 16:20 16:20 WBC 2.55 L Hgb 7.0 L Hct 21.2 L Plt Count 15 L* Sodium 145 Potassium 4.5 Chloride 114 H Carbon Dioxide 19 L BUN 104 H Creatinine 5.00 H* Glucose 149 H Calcium 5.8 L* Diagnostic Findings 06/16/[address]: Kidneys and ureters - Bilateral nephrolithiasis. Multifocal scarring in the left kidney. Dominant exophytic cyst in the lower pole the right kidney. No hydronephrosis. Ureters nondistended. PG Care Time/CCT Total # of Minutes Spent Total Time Spent with Patient: Total time spent is greater than 50% in coordination of care (as documented) at patient's floor/unit and/or counseling patient: (1) Multiple myeloma Multiple myeloma remission status: unspecified Qualified Code(s): C90.00 - Multiple myeloma not having achieved remission
[2019-06-17 11:34] LABS: Hematocrit (blood only) 18.5 % (37-47); Hemoglobin 6.1 g/dL (12.0-16.0); Mean Corpuscular Hemoglobin 32.3 pg (25-34); Mean Corpuscular Volume 97.9 fL (80-100); Mean Platelet Volume 9.6 fL (7.4-10.4); Nucleated RBC # (auto) 0.27 K/uL (0-0); Nucleated RBC % (auto) 8.8 %; Platelet Count 56 K/uL (130-400); RDW Coefficient of Variation 21.5 % (11.5-14.5); RDW Standard Deviation 75.5 fL (36.4-46.3); Red Blood Count 1.89 M/uL (4.2-5.4)
[2019-06-17 11:57] LABS: Basophils # (auto) 0.05 K/uL (0-0.2); Basophils % (auto) 1.6 %; Eosinophils # (auto) 0.04 K/uL (0-0.5); Eosinophils % (auto) 1.3 %; Immature Granulocytes % (auto) 9.7 %; Lymphocytes # (auto) 0.75 K/uL (1.2-3.4); Lymphocytes % (auto) 24.2 %; Monocytes # (auto) 0.32 K/uL (0.11-0.59); Monocytes % (auto) 10.3 %; Neutrophils # (auto) 1.64 K/uL (1.4-6.5); Neutrophils % (auto) 52.9 %; Rouleaux 2+
[2019-06-17 12:07] LABS: Albumin Globulin Ratio 0.5 (0.9-2); Albumin Level 2.7 gm/dl (3.4-5.0); BUN Creatinine Ratio 21.2 (10-20); Bilirubin,Total 0.9 mg/dl (0.2-1); Calcium 5.4 mg/dl (8.5-10.1); Creatinine Clr Calc Pharmacy 12.4 ml/min; Est GFR (African American) 9.4; Est GFR (Non-African American) 8.1; Globulin 5.7 gm/dl (2.5-4.0); Magnesium 1.9 mg/dl (1.8-2.4); Phosphorus 4.1 mg/dl (2.5-4.9); Potassium 4.5 mmol/L (3.5-5.1); Total Protein 8.4 gm/dl (6.4-8.2)
--- NOTE | 2019-06-17 12:30 | Oncology Consultation ---
Date of Consultation June 17, 2019 Assessment & Plan (1) Melena: Her CT shows evidence concerning for duodenitis or a duodenal ulcer, which would explain a GI bleed. Her counts are probably exacerbating that issue. I would consult GI. In the meantime, she is on a PPI drip. I would try to keep her platelet count above 20-30K until her bleeding can be addressed. Present on Admission?: Yes (2) Pancytopenia: She is pancytopenic and her peripheral smear has immature marrow forms, nucleated RBCs, and dysmorphic mature RBCs, all consistent with myelophthisis. I suspect this is the cause of her generally low counts, though the Revlimid is also likely contributing. Obviously, her acute drop in hemoglobin is related to her GI bleed. I would transfuse her PRBCs today, with a goal of >8, and platelets as described above. At some point, she would likely benefit from a bone marrow biopsy. However, that can be deferred while her acute issues are addressed. Present on Admission?: Yes History of Present Illness Reason for Consultation: Pancytopenia Multiple myeloma Attending Physician: Naresh Poole MD History of Present Illness Ms. Fuller is a 68 year old woman who was diagnosed late last year with an IgA lambda multiple myeloma. She was treated by my partner, Dr. Andersen, with 12 cycles of RVd, last in March 2019. She had a good response, with normalization of her counts and serum total IgA level. She was referred to [facility] for discussion of autologous SCT in March. Unfortunately, she returned to Dr. Andersen earlier this month with relapsed disease. At that time, she was pancytopenic and has remained so ever since. She had myelophthistic changes in her peripheral blood and so the presumptive diagnosis is that her low counts are related to a marrow packed with plasma cells. She restarted treatment with RVd on 06/12/19. She also was given a pulse dose of Decadron (40 mg daily, 4 days on, 4 days off) that she started around 06/09. She called our office yesterday complaining of severe fatigue that led her to present to the ER. There, she was found to have a hemoglobin of 7 and also described having some melenic stools. She was transfused platelets in the ER and her platelet count is up. However, her hemoglobin this morning was 6.1. She was started on a PPI drip and a GI consultation is pending. She denies any bright red blood loss anywhere. She reports having had the black stools for a few weeks and had attributed them to her Revlimid. She denies any abdominal pain, nausea, or vomiting. Allergies Allergy/AdvReac Type Severity Reaction Status Date / Time ibuprofen AdvReac Tachycardia Verified 06/16/19 17:09 Home Medications Home Medications Medication Instructions Recorded Confirmed Type aspirin [Vika Aspirin] 325 mg PO QAM 08/08/18 06/16/19 History sertraline [Zoloft] 100 mg PO BID 08/08/18 06/16/19 History oxycodone 10 mg PO Q6 PRN #12 tab 08/16/18 06/16/19 Rx lenalidomide [Revlimid] 25 mg PO DAILY 06/13/19 06/16/19 History acyclovir 400 mg PO BID 06/16/19 06/16/19 History dexamethasone 4 mg PO DIRECTED 06/16/19 06/16/19 History diphenhydramine-acetaminophen 1 tab PO HS PRN 06/16/19 06/16/19 History [Tylenol PM Extra Strength] omeprazole 40 mg PO QAM 06/16/19 06/16/19 History prochlorperazine maleate 10 mg PO Q6H PRN 06/16/19 06/16/19 History Patient History Medical History History of TIA (transient ischemic attack) JACQUIE (acute kidney injury) History of TIA (transient ischemic attack) History of hysterectomy Leukopenia Mood disorder Multiple myeloma Family History Other Family history non-contributory Social History Preferred Language: Burundian Communication Ability: Effective Visual Impairment: No Limitations Hearing Ability: Normal 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 Beliefs That Will Affect Care: None Current Living Situation: Alone Current Living Situation Comment: lives with son Feels Safe at Home: Yes Smoking Status: Former smoker Second Hand Exposure: No ; Hx Alcohol Use: No Hx Substance Use: No Review of Systems Constitutional: + fatigue and + weakness; no fever Ear, Nose, Mouth, Throat: no epistaxis and no bleeding gums Respiratory: no cough, no dyspnea and no hemoptysis Cardiovascular: no chest pain and no palpitations Gastrointestinal: as per Subjective / HPI Genitourinary: no dysuria and no hematuria Musculoskeletal: no back pain and no joint pain Integumentary: + unusual bruising (at sites of venipuncture); no rash Neurologic: no localized weakness and no headache(s) Hematologic / Lymphatic: no easy bleeding, no lymphadenopathy and no night sweats Physical Exam Constitutional: + ill appearing and comfortable; no acute distress Eyes: + anicteric sclerae and EOM intact bilaterally ENMT: external ear and nose normal, oropharynx normal Respiratory: normal respiratory effort, lungs clear to auscultation Cardiovascular: RRR, no murmur, no edema Gastrointestinal (Abdomen): Inspection/Auscultation: normal bowel sounds; abdomen not distended Percussion/Palpation: abdomen soft; abdomen nontender Skin: scattered ecchymoses, no gross bleeding Psychiatric: A+Ox3, euthymic affect Lymphatic: no cervical or axillary lymphadenopathy Results & Data Vital Signs (Past 12 Hours) Vital Signs Temp Pulse Pulse Resp BP BP Pulse Ox 06/17/19 12:15 36.9 C 83 16 100/63 100 06/17/19 12:14 36.6 C 80 21 108/74 94 06/17/19 10:24 36.6 C 81 16 116/81 99 06/17/19 09:46 36.5 C 81 16 109/71 99 06/17/19 08:46 36.6 C 80 18 108/67 06/17/19 07:46 36.4 C L 77 16 97/62 L 97 06/17/19 07:16 36.4 C L 66 16 97/62 L 97 06/17/19 07:01 36.7 C 73 18 102/62 97 06/17/19 06:45 36.7 C 79 18 102/70 97 06/17/19 04:53 36.6 C 60 18 94/58 L 97 06/17/19 03:08 36.4 C L 88 20 95/63 L 97 06/17/19 02:08 36.4 C L 77 18 108/54 L 97 06/17/19 01:38 36.7 C 80 20 113/74 97 06/17/19 01:23 37.1 C 82 18 103/63 97 06/17/19 01:07 36.6 C 85 18 99/64 L 97 Laboratory Results Laboratory Tests 04/21/19 06/06/19 06/16/19 10:20 03:59 16:20 WBC 3.39 L 1.32 L 2.55 L Hgb 13.0 8.9 L 7.0 L Plt Count 191 38 L 15 L* 06/17/19 11:25 WBC 3.10 L Hgb 6.1 L* Plt Count 56 L D Diagnostic Findings CT A/P, 06/16/19: IMPRESSION: 1. Inflammatory changes in the duodenal bulb and descending duodenum concerning for duodenitis or duodenal ulcer. This is suspected to be the etiology for an upper gastrointestinal hemorrhage. 2. Inflammatory changes appear to emanate from the duodenum rather than related to the extra hepatic bile ducts are pancreas. Correlate with lab values to exclude these etiologies. 3. Trace abdominal pelvic ascites. 4. Numerous osseous lytic foci most suggestive of metastatic disease or multiple myeloma. 5. Mild to moderate compression fracture of L1, which may be pathologic. Resulting retropulsion with moderate to severe spinal canal stenosis. 6. Interval tree-in-bud peribronchovascular right lower lobe infiltrates, possibly developing infectious bronchiolitis or more likely trace aspiration. 7. Additional findings as above.
--- NOTE | 2019-06-17 12:36 | Gastrointestinal Consultation ---
Date of Consultation June 17, 2019 Assessment & Plan (1) GI bleed: Keep on liquids only. Plan EGD on Wednesday, unless there is evidence of active bleeding. Low platelet count. If platelets are expected to be of low quality, a transfusion before the procedure is suggested. Agree that the likely source is in the duodenum possibly ulcer. Keep PPI iv bid. Please check H Pylori stool antigen. Unclear if all the drop in count is due to GI bleeding. May be there is a component of hemolysis. Present on Admission?: Yes History of Present Illness Attending Physician: Naresh Poole MD History of Present Illness Melena for multiple days. Admitted with anemia. No GI symptoms other than diarrhea. Denies any pain. Spoke with aid who cleaned her via the nurse, reports formed brown stool today. Last BM before that was yesterday. Allergies Allergy/AdvReac Type Severity Reaction Status Date / Time ibuprofen AdvReac Tachycardia Verified 06/16/19 17:09 Home Medications Home Medications Medication Instructions Recorded Confirmed Type aspirin [Vika Aspirin] 325 mg PO QAM 08/08/18 06/16/19 History sertraline [Zoloft] 100 mg PO BID 08/08/18 06/16/19 History oxycodone 10 mg PO Q6 PRN #12 tab 08/16/18 06/16/19 Rx lenalidomide [Revlimid] 25 mg PO DAILY 06/13/19 06/16/19 History acyclovir 400 mg PO BID 06/16/19 06/16/19 History dexamethasone 4 mg PO DIRECTED 06/16/19 06/16/19 History diphenhydramine-acetaminophen 1 tab PO HS PRN 06/16/19 06/16/19 History [Tylenol PM Extra Strength] omeprazole 40 mg PO QAM 06/16/19 06/16/19 History prochlorperazine maleate 10 mg PO Q6H PRN 06/16/19 06/16/19 History Patient History Medical History History of TIA (transient ischemic attack) JACQUIE (acute kidney injury) History of TIA (transient ischemic attack) History of hysterectomy Leukopenia Mood disorder Multiple myeloma Family History Other Family history non-contributory Social History Preferred Language: Upper Sorbian Communication Ability: Effective Visual Impairment: No Limitations Hearing Ability: Normal 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 Required: No Beliefs That Will Affect Care: None Current Living Situation: Alone Current Living Situation Comment: lives with son Feels Safe at Home: Yes Smoking Status: Former smoker Second Hand Exposure: No ; Hx Alcohol Use: No Hx Substance Use: No Review of Systems Review of Systems: Review of system Constitutional: No fever / no chills / no sweats / no weakness / no fatigue Eyes: no blurring of vision / no eye pain / no discharge / no redness ENT: no hearing loss / no epistaxis /no swallowing problems Respiratory: no cough / no wheezing / no SOB / no hemoptysis Cardiovascular: no Chest pain / no lower extremity edema / no palpitation Abdomen: Melena/initially diarrhea but currently better musculoskeletal: no joint pain / no muscle pain / no joint swelling Hematologic: no abnormal bleeding / no bruising / no LN swelling Skin: No rash / no pallor severe fatigue and weakness, feeling weak weak all the time Physical Exam Constitutional: + ill appearing; not in distress Eyes: PERRL, conjunctivae normal, anicteric sclerae Neck: trachea midline, no thyromegaly Respiratory: normal respiratory effort, lungs clear to auscultation Cardiovascular: RRR, no murmur, no edema Gastrointestinal (Abdomen): normal bowel sounds, soft, nontender, no hepatosplenomegaly Skin: no rashes, warm and dry Neurologic: awake Results & Data Vital Signs (Past 12 Hours) Vital Signs Temp Pulse Pulse Resp BP BP Pulse Ox 06/17/19 12:15 36.9 C 83 16 100/63 100 06/17/19 12:14 36.6 C 80 21 108/74 94 06/17/19 10:24 36.6 C 81 16 116/81 99 06/17/19 09:46 36.5 C 81 16 109/71 99 06/17/19 08:46 36.6 C 80 18 108/67 06/17/19 07:46 36.4 C L 77 16 97/62 L 97 06/17/19 07:16 36.4 C L 66 16 97/62 L 97 06/17/19 07:01 36.7 C 73 18 102/62 97 06/17/19 06:45 36.7 C 79 18 102/70 97 06/17/19 04:53 36.6 C 60 18 94/58 L 97 06/17/19 03:08 36.4 C L 88 20 95/63 L 97 06/17/19 02:08 36.4 C L 77 18 108/54 L 97 06/17/19 01:38 36.7 C 80 20 113/74 97 06/17/19 01:23 37.1 C 82 18 103/63 97 06/17/19 01:07 36.6 C 85 18 99/64 L 97 (1) GI bleed GI bleed type/associated pathology: unspecified gastrointestinal hemorrhage type Qualified Code(s): K92.2 - Gastrointestinal hemorrhage, unspecified
[2019-06-17] MEDS ORDERED: CALCIUM GLUCONATE 10% 2,000 MG in SODIUM CHLORIDE 0.9% 50 ML IV ONE (12:45)
--- NOTE | 2019-06-17 16:41 | Hospitalist Progress Note ---
Date of Service June 17, 2019 Assessment & Plan (1) Melena: Likely due to duodenal ulcer. CT a/p on 06/16 shows inflammatory changes in the duodenal bulb and descending duodenum concerning for duodenitis or duodenal ulcer. Per notes, she was on a full-strength aspirin which could have c ontributed. - PPI ggt - GI consulted - Plan for EGD on Wednesday unless more urgently needed - Transfuse for hgb > 8 and platelets > 30. - Hold home ASA (2) Pancytopenia: Due to multiple myeloma with her Revlimid chemotherapy possibly worsening it. - Transfuse as above - Oncology following - Discussed multiple times on 06/17. (3) Multiple myeloma: Peripheral smear shows immature marrow forms which Dr. Billings reports indicates means she likely has significant disease burden in her bone marrow. - Bone marrow biopsy at some point, though must deal with acute issues first. - Continue dexamethasone - Continue lenalidomide if able to obtain - Palliative care consult (4) Depressed: - Continue sertraline (5) History of DVT (deep vein thrombosis): Unclear when this was. Not on anticoagulation as an outpatient, just full-strength aspirin. - Given overall issues, obviously cannot start DVT chemoprophylaxis at this time. - Hold ASA Subjective Reports feeling tired. Has had black, tarry stools for about 2 weeks, but none today. No nausea or vomiting. Review of Systems Review of Systems: All systems reviewed & are unremarkable except as noted in HPI & below Physical Exam Constitutional: WD/WN, vitals as above Pale Eyes: EOM intact bilaterally; no conjunctival abnormality ENMT: external ear and nose normal, oropharynx normal Neck: trachea midline, no thyromegaly normal visual inspection Respiratory: normal respiratory effort, lungs clear to auscultation no respiratory distress Cardiovascular: RRR, no murmur, no edema Gastrointestinal (Abdomen): Inspection/Auscultation: abdomen normal to inspection; abdomen not distended Musculoskeletal: no cyanosis or clubbing, extremities motor strength 5/5 Skin: no rashes, warm and dry Neurologic: moves all extremities and awake Psychiatric: Orientation: alert, oriented to person and cooperative Results & Data Vital Signs (Past 12 Hours) Vital Signs Temp Pulse Pulse Resp BP BP Pulse Ox 06/17/19 15:35 36.7 C 78 16 97/59 L 99 06/17/19 15:19 36.7 C 83 16 105/71 97 06/17/19 14:19 36.5 C 82 16 107/68 100 06/17/19 13:19 36.6 C 87 16 126/73 100 06/17/19 12:49 36.6 C 79 16 112/64 100 06/17/19 12:41 36.6 C 78 18 109/59 L 06/17/19 12:34 36.6 C 78 16 107/68 99 06/17/19 12:15 36.9 C 83 16 100/63 100 06/17/19 12:14 36.6 C 80 21 108/74 94 06/17/19 10:24 36.6 C 81 16 116/81 99 06/17/19 09:46 36.5 C 81 16 109/71 99 06/17/19 08:46 36.6 C 80 18 108/67 06/17/19 07:46 36.4 C L 77 16 97/62 L 97 06/17/19 07:16 36.4 C L 66 16 97/62 L 97 06/17/19 07:01 36.7 C 73 18 102/62 97 06/17/19 06:45 36.7 C 79 18 102/70 97 06/17/19 04:53 36.6 C 60 18 94/58 L 97 PG Care Time/CCT Total # of Minutes Spent Total Time Spent with Patient: Total time spent is greater than 50% in co ordination of care (as documented) at patient's floor/unit and/or counseling patient: (1) Multiple myeloma Multiple myeloma remission status: unspecified Qualified Code(s): C90.00 - Multiple myeloma not having achieved remission
[2019-06-17 17:59] LABS: Mean Corpuscular Hgb Conc 32.5 g/dL (32-36)
[2019-06-17 19:01] LABS: Hematocrit (blood only) 24.3 % (37-47); Hemoglobin 7.9 g/dL (12.0-16.0); Mean Corpuscular Hemoglobin 31.6 pg (25-34); Mean Corpuscular Volume 97.2 fL (80-100); Mean Platelet Volume 9.8 fL (7.4-10.4); Nucleated RBC # (auto) 0.23 K/uL (0-0); Platelet Count 40 K/uL (130-400); RDW Coefficient of Variation 20.6 % (11.5-14.5); RDW Standard Deviation 72.6 fL (36.4-46.3)
[2019-06-17 19:03] LABS: Basophils % (auto) 2.9 %; Lymphocytes % (auto) 24.3 %; Monocytes % (auto) 12.9 %; Neutrophils % (auto) 49.9 %
[2019-06-17 19:04] LABS: Anisocytosis Present; Basophils # (auto) 0.06 K/uL (0-0.2); Eosinophils # (auto) 0.02 K/uL (0-0.5); Immature Granulocytes # (auto) 0.19 K/uL (0.00-0.02); Lymphocytes # (auto) 0.51 K/uL (1.2-3.4); Monocytes # (auto) 0.27 K/uL (0.11-0.59); Neutrophils # (auto) 1.05 K/uL (1.4-6.5); Toxic Granulation 1+
[2019-06-18] MEDS: PANTOprazole 40 MG in DEXTROSE 5% 100 ML IV SCH ×4 (02:31→16:20)
[2019-06-18 06:44] LABS: BUN Creatinine Ratio 21.2 (10-20); Calcium 5.5 mg/dl (8.5-10.1); Creatinine Clr Calc Pharmacy 11.8 ml/min; Est GFR (African American) 8.8; Est GFR (Non-African American) 7.6
[2019-06-18 07:19] LABS: Hematocrit (blood only) 32.9 % (37-47); Hemoglobin 9.8 g/dL (12.0-16.0); Mean Corpuscular Hemoglobin 28.9 pg (25-34); Mean Corpuscular Hgb Conc 29.8 g/dL (32-36); Mean Corpuscular Volume 97.1 fL (80-100); Platelet Count 37 K/uL (130-400); RDW Standard Deviation 73.4 fL (36.4-46.3); Red Blood Count 3.39 M/uL (4.2-5.4); White Blood Count 1.59 K/uL (4.8-10.8)
[2019-06-18 07:23] LABS: Basophils # (auto) 0.04 K/uL (0-0.2); Basophils % (auto) 2.5 %; Eosinophils # (auto) 0.04 K/uL (0-0.5); Eosinophils % (auto) 2.5 %; Immature Granulocytes # (auto) 0.05 K/uL (0.00-0.02); Immature Granulocytes % (auto) 3.1 %; Lymphocytes # (auto) 0.77 K/uL (1.2-3.4); Lymphocytes % (auto) 48.4 %; Monocytes # (auto) 0.13 K/uL (0.11-0.59); Monocytes % (auto) 8.2 %; Neutrophils # (auto) 0.56 K/uL (1.4-6.5); Neutrophils % (auto) 35.3 %; Rouleaux 2+
--- NOTE | 2019-06-18 07:44 | Hospitalist Progress Note ---
Date of Service June 18, 2019 Assessment & Plan (1) Melena: Likely due to duodenal ulcer. CT a/p on 06/16 shows inflammatory changes in the duodenal bulb and descending duodenum concerning for duodenitis or duodenal ulcer. Per notes, she was on a full-strength aspirin which could have c ontributed. - PPI ggt - GI consulted - Plan for EGD on Wednesday unless more urgently needed - Transfuse for hgb > 8 and platelets > 30. - On 06/18, at goal for both counts. - Hold home ASA (2) Pancytopenia: Due to multiple myeloma with her Revlimid chemotherapy possibly worsening it. - Transfuse as above - Oncology following - Discussed multiple times on 06/17. - On 06/18, now neutropenic as well. Precautions instituted. Low threshold for abx if febrile. (3) Multiple myeloma: Peripheral smear shows immature marrow forms which Dr. Billings reports indicates means she likely has significant disease burden in her bone marrow. - Bone marrow biopsy at some point, though must deal with acute issues first. - Continue dexamethasone - Continue lenalidomide if able to obtain - Palliative care consult offered, but she declined on 06/18 (4) Depressed: Reports "fatigue," and mood is understandably anxious. - Continue sertraline (5) History of DVT (deep vein thrombosis): Unclear when this was. Not on anticoagulation as an outpatient, just full- strength aspirin. - Given overall issues, obviously cannot start DVT chemoprophylaxis at this time. - Hold ASA Subjective Feeling anxious today, though less tired. Plan for EGD tomorrow. Review of Systems Review of Systems: All systems reviewed & are unremarkable except as noted in HPI & below Physical Exam Constitutional: WD/WN, vitals as above + in distress Eyes: EOM intact bilaterally; no conjunctival abnormality ENMT: external ear and nose normal, oropharynx normal Neck: trachea midline, no thyromegaly normal visual inspection Respiratory: normal respiratory effort, lungs clear to auscultation no respiratory distress Cardiovascular: RRR, no murmur, no edema Gastrointestinal (Abdomen): Inspection/Auscultation: abdomen normal to inspection; abdomen not distended Musculoskeletal: no cyanosis or clubbing, extremities motor strength 5/5 Skin: no rashes, warm and dry Neurologic: moves all extremities and awake Psychiatric: Orientation: alert, oriented to person and cooperative Affect: + tearful affect Results & Data Vital Signs (Past 12 Hours) Vital Signs Temp Pulse Pulse Resp BP BP Pulse Ox 06/18/19 03:11 36.7 C 86 18 121/77 98 06/18/19 00:00 78 06/17/19 23:21 36.6 C 80 16 92/51 L 99 06/17/19 21:03 36.7 C 85 115/76 PG Care Time/CCT Total # of Minutes Spent Total Time Spent with Patient: Total time spent is greater than 50% in coordination of care (as documented) at patient's floor/unit and/or counseling patient: (1) Multiple myeloma Multiple myeloma remission status: unspecified Qualified Code(s): C90.00 - Multiple myeloma not having achieved remission
[2019-06-18] MEDS: ACYCLOVIR 200 MG CAP PO SCH ×2 (07:52→19:52)
[2019-06-18] MEDS: SERTRALINE HCL 50 MG TABLET PO SCH ×2 (07:52→20:28)
--- NOTE | 2019-06-18 09:25 | Nephrology Progress Note ---
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 Imaging is negative for obstruction. Patient did not respond to hydration during last hospitalization. She has not been exposed to nephrotoxic medications -- Volume status and electrolyte balance are acceptable at this time. No acute indication for HD -- Provide gentle hydration -- May need to consider THC and IHD once anemia/thrombocytopenia has been corrected -- Discussed indications/benefits/risks and alternatives to IJ THC insertion and HD w/ patient today. She is agreeable to HD if needed. She lives near the [facility] dialysis unit and may require transportation assistance. Her goal is to undergo BMT at [facility] in [place] (2) Pancytopenia: -- Pancytopenia due to recent chemotherapy -- Progressive anemia likely due to GIB -- Abd CT w/ changes concerning for duodenal ulcer -- GI plans for EGD Wednesday (3) Multiple myeloma: -- Oncology recommendations reviewed. Bone marrow biopsy is being considered Subjective Ms. Fuller was seen & examined in her hospital room this morning. She denies fever, abdominal pain or overt blood loss. She denies nausea or flank pain Review of Systems Constitutional: + weakness; no fever and no chills Eyes: no worsening vision and no problem reported Ear, Nose, Mouth, Throat: no problem reported Respiratory: no cough and no dyspnea Cardiovascular: no chest pain, no palpitations and no edema Gastrointestinal: no abdominal pain, no nausea, no vomiting and no diarrhea/loose stools Genitourinary: no dysuria and no hematuria Musculoskeletal: no back pain Integumentary: no rash Physical Exam Constitutional: + ill appearing; not in distress Eyes: PERRL, conjunctivae normal, anicteric sclerae ENMT: external ear and nose normal, oropharynx normal Neck: trachea midline, no thyromegaly Respiratory: normal respiratory effort, lungs clear to auscultation Cardiovascular: RRR, no murmur, no edema Gastrointestinal (Abdomen): normal bowel sounds, soft, nontender, no hepatosplenomegaly Musculoskeletal: Extremities: no cyanosis Skin: no rashes, warm and dry Neurologic: awake; not confused Results & Data Vital Signs (Past 12 Hours) Vital Signs Temp Pulse Pulse Pulse Resp BP Pulse Ox 06/18/19 07:26 36.5 C 85 18 96/66 L 97 06/18/19 03:11 36.7 C 86 18 121/77 98 06/18/19 00:00 78 06/17/19 23:21 36.6 C 80 16 92/51 L 99 Laboratory Results Laboratory Tests 06/18/19 05:48 WBC 1.59 L Hgb 9.8 L Hct 32.9 L Plt Count 37 L Laboratory Tests 06/18/19 05:48 Sodium 146 H Potassium 4.0 Chloride 115 H Carbon Dioxide 19 L BUN 115 H Creatinine 5.42 H* Glucose 95 PG Care Time/CCT Total # of Minutes Spent Total Time Spent with Patient: Total time spent is greater than 50% in coordination of care (as documented) at patient's floor/unit and/or counseling patient: (1) Multiple myeloma Multiple myeloma remission status: unspecified Qualified Code(s): C90.00 - Multiple myeloma not having achieved remission
--- NOTE | 2019-06-18 09:50 | Gastroenterology Progress Note ---
Date of Service June 18, 2019 Assessment & Plan (1) Melena: Blood counts are better with transfusion. Will keep plan for EGD on Wednesday most likely, schedule permits. Dr. Carroll to confirm in AM. Keep NPO past midnight. Ok to give PO now. Consider Psych support/Eval, may benefit to treat any depression. Present on Admission?: Yes Subjective No active bleeding noted. Patient feeling really down. She was tearing as I comforted her. "Every thing is hitting me now and I am scared" Physical Exam Gastrointestinal (Abdomen): Percussion/Palpation: abdomen soft; abdomen nontender Results & Data Vital Signs (Past 12 Hours) Vital Signs Temp Pulse Pulse Pulse Resp BP Pulse Ox 06/18/19 07:26 36.5 C 85 18 96/66 L 97 06/18/19 03:11 36.7 C 86 18 121/77 98 06/18/19 00:00 78 06/17/19 23:21 36.6 C 80 16 92/51 L 99 : GI bleed Qualifiers: GI bleed type/associated pathology: unspecified gastrointestinal hemorrhage ty pe Qualified Code(s): K92.2 - Gastrointestinal hemorrhage, unspecified
[2019-06-18] MEDS ORDERED: CALCIUM GLUCONATE IV ONE (10:30)
[2019-06-18] MEDS ORDERED: CALCIUM GLUCONATE IV SCH (10:30)
[2019-06-18] MEDS ORDERED: SODIUM CHLORIDE 0.9% IV ONE (10:30)
[2019-06-18] MEDS ORDERED: SODIUM CHLORIDE 0.9% IV SCH (10:30)
--- NOTE | 2019-06-18 12:15 | Hematology/Oncology Prog Note ---
Date of Service June 18, 2019 Assessment & Plan (1) Melena: Her CT shows evidence concerning for duodenitis or a duodenal ulcer, which would explain a GI bleed. She is scheduled for endoscopy tomorrow. In the meantime, she is on a PPI drip. I would try to keep her platelet count above 20- 30K until her bleeding can be addressed. Present on Admission?: Yes (2) Pancytopenia: She is pancytopenic and her peripheral smear has immature marrow forms, nucleated RBCs, and dysmorphic mature RBCs, all consistent with myelophthisis. I suspect this is the cause of her generally low counts, though the Revlimid is also likely contributing. Obviously, her acute drop in hemoglobin is related to her GI bleed. I would transfuse her PRBCs as needed for a goal of >8, and platelets as described above. Her ANC is down, which may also represent some toxicity from treatment that she started last week. At some point, she would likely benefit from a bone marrow biopsy. However, that can be deferred while her acute issues are addressed. Present on Admission?: Yes Subjective Ms. Fuller is comfortable today. She denies any fevers, bleeding, melena, or new pain. She met with GI and is planning an endoscopy tomorrow. Review of Systems Constitutional: + fatigue and + weakness; no fever Ear, Nose, Mouth, Throat: no epistaxis and no bleeding gums Respiratory: no cough and no dyspnea Cardiovascular: no chest pain and no edema Gastrointestinal: no abdominal pain, no nausea and no diarrhea/loose stools Genitourinary: no dysuria and no hematuria Integumentary: + unusual bruising (at sites of venipuncture); no rash Neurologic: no headache(s) Physical Exam Constitutional: + ill appearing (chronically) and comfortable; no acute distress Eyes: + anicteric sclerae and EOM intact bilaterally ENMT: external ear and nose normal, oropharynx normal Respiratory: normal respiratory effort, lungs clear to auscultation Cardiovascular: RRR, no murmur, no edema Gastrointestinal (Abdomen): Inspection/Auscultation: normal bowel sounds; abdomen not distended Percussion/Palpation: abdomen soft; abdomen nontender Psychiatric: A+Ox3, euthymic affect Lymphatic: no cervical or axillary lymphadenopathy Results & Data Vital Signs (Past 12 Hours) Vital Signs Temp Pulse Pulse Pulse Resp BP Pulse Ox 06/18/19 11:44 36.5 C 83 19 102/65 96 06/18/19 07:26 36.5 C 85 18 96/66 L 97 06/18/19 07:20 88 06/18/19 03:11 36.7 C 86 18 121/77 98 Laboratory Results Laboratory Tests 06/18/19 05:48 WBC 1.59 L Hgb 9.8 L Plt Count 37 L
[2019-06-18] MEDS: SODIUM CHLORIDE 0.9% 1000ML 1,000 ML IV SCH (13:03)
[2019-06-18] MEDS ORDERED: CALCIUM GLUCONATE 10% 10 ML VIAL IV STA (14:06)
[2019-06-19] MEDS: PANTOprazole 40 MG in DEXTROSE 5% 100 ML IV SCH ×6 (00:22→21:05)
[2019-06-19 06:41] LABS: BUN Creatinine Ratio 19.3 (10-20); Calcium 5.5 mg/dl (8.5-10.1); Creatinine Clr Calc Pharmacy 11.1 ml/min; Est GFR (African American) 8.1; Magnesium 1.5 mg/dl (1.8-2.4); Potassium 3.9 mmol/L (3.5-5.1)
[2019-06-19 06:44] LABS: Mean Corpuscular Hgb Conc 32.6 g/dL (32-36)
[2019-06-19 06:50] LABS: Hematocrit (blood only) 21.5 % (37-47); Mean Corpuscular Volume 98.2 fL (80-100); RDW Coefficient of Variation 20.5 % (11.5-14.5); RDW Standard Deviation 72.7 fL (36.4-46.3); Red Blood Count 2.19 M/uL (4.2-5.4)
[2019-06-19 06:53] LABS: Mean Platelet Volume 10.5 fL (7.4-10.4); Platelet Count 28 K/uL (130-400)
[2019-06-19 06:54] LABS: Giant Platelets 1+; Platelet Estimate SIGNIFIC DECREASED (Normal); Rouleaux 1+
[2019-06-19 07:06] LABS: ALC (manual) 1.08 K/uL (1.2-3.4); ANC (manual) 0.88 K/uL (1.4-6.5); Eosinophils # (manual) 0.04 K/uL (0-0.5); Eosinophils % (manual) 2.1 %; Lymphocytes # (manual) 1.08 K/uL (1.2-3.4); Lymphocytes % (manual) 54.1 %; Neutrophils # (manual) 0.88 K/uL (1.4-6.5); Neutrophils % (manual) 43.8 %; Nucleated RBC # (auto) 0.35 K/uL (0-0); Nucleated RBC % (auto) 17.7 %
[2019-06-19] MEDS ORDERED: SODIUM CHLORIDE 0.9% 250 ML IV PRN (07:06)
[2019-06-19] MEDS ORDERED: CALCIUM GLUCONATE 10% 2,000 MG in SODIUM CHLORIDE 0.9% 50 ML IV SCH (08:00)
[2019-06-19] MEDS: MAGNESIUM SULFATE / D5W 1 GM/100 ML BAG IV SCH ×3 (08:40→11:10)
[2019-06-19] MEDS: ACYCLOVIR 200 MG CAP PO SCH ×2 (08:41→21:05)
[2019-06-19] MEDS: SERTRALINE HCL 50 MG TABLET PO SCH ×2 (09:03→21:05)
--- NOTE | 2019-06-19 09:54 | Progress Note ---
DATE: 06/19/2019 DIAGNOSES: 1. Melena. 2. Pancytopenia. 3. IgA multiple myeloma. 4. Hypoalbuminemia. 5. History of DVT. SUBJECTIVE: Rebecca is a pleasant but unfortunate 68-year-old female patient who was admitted over the weekend at [facility] with melena stools and generalized fatigue/weakness. Apparently, the patient has required transfusional support particularly with packed RBCs and platelets. She was recently hospitalized with overt multiple myeloma relapse and renal failure. Her creatinine remains above 5. Tried to reinstitute Velcade, which I believe she received 1 dose as an outpatient. She was pulsing with high dose dexamethasone, which unfortunately may have led to underlying gastritis/perhaps a stress ulcer. EGD is planned for today. Engaged in discussion about possible transfer to [facility] as she will need bone marrow biopsy and most likely reinduction. Her case is becoming more complex and do not feel comfortable managing her here. Rebecca is agreeable to transfer once she stabilizes. OBJECTIVE: GENERAL: Pleasant 68-year-old female patient in no acute distress. VITAL SIGNS: Temperature 36.7, pulse 81, respiratory rate 16, blood pressure 90/53. SKIN: Without rash or lesion. HEENT: Oral mucosa without erythema or ulceration. HEART: Regular rate and rhythm. No clicks, rubs, murmurs or gallops. LUNGS: Clear to auscultation. ABDOMEN: Soft, nontender, nondistended. EXTREMITIES: No clubbing, cyanosis or edema. NEUROLOGICAL: Grossly intact. LABORATORY DATA: WBC count 2000, hemoglobin 7, platelet count 28,000. Sodium 148, potassium 3.9, chloride 117, carbon dioxide 17, creatinine 5.80, calcium 5.5, magnesium 1.5. IMPRESSION: 1. Possible gastrointestinal bleeding. 2. Anion gap metabolic acidosis. 3. Hypernatremia. 4. Electrolyte dysfunction/hypomagnesemia. 5. Pancytopenia. 6. Relapsed IgA multiple myeloma. PLAN: Discussed extensively with Dr. Poole, her managing hospitalist. Becoming increasingly uncomfortable with her lack of progress. I am in favor of once medically stable to transfer her down to [facility] for restaging and perhaps reinduction for multiple myeloma. Agree with current medical management. EGD will be done later today and hopefully if there is an active bleeding, it can be stabilized. Would continue transfusional and electrolyte support. Her creatinine really has not worsened per se, but at some point would not surprise me if she requires hemodialysis. We will continue to follow her during her stay. Thank you for assisting me on this very pleasant, somewhat complex patient.
--- NOTE | 2019-06-19 10:18 | Nephrology Progress Note ---
Date of Service June 19, 2019 Assessment & Plan (1) JACQUIE (acute kidney injury): Nadine Fuller is a 68-year-old female with acute kidney injury in the setting of multiple myeloma. Renal function has been progressively worsening with significant electrolyte abnormality, remained anuric. Also have anemia with GI bleeding hemoglobin remained low. Has thrombocytopenia and neutropenia as well. Plan for EGD today --No need for emergency dialysis however she will need dialysis within next 24 hours. Consulted vascular surgery there will not be able to place tunnel catheter today, plan to do the tunnel catheter tomorrow morning will need platelet transfusion before that. In between if she gets transferred to [facility], she can have a tunnel catheter and dialysis started there otherwise will keep her on schedule for tomorrow morning. She lives near the [facility] dialysis unit and may require transportation assistance. Will follow for (2) Pancytopenia: -- Pancytopenia due to recent chemotherapy -- Progressive anemia likely due to GIB -- Abd CT w/ changes concerning for duodenal ulcer -- GI plans for EGD Wednesday (3) Multiple myeloma: -- Oncology recommendations reviewed. Bone marrow biopsy is being considered Subjective Nadine was seen and examined in her room this morning. She denies any specific symptoms but overall condition feels poorly and anxious and overwhelmed with all acute health problems. Renal function continues to worsen with significant electrolyte abnormality. Remained anuric but denies any significant shortness of or chest pain. Appetite remains poor. Review of Systems Review of Systems: All systems reviewed & are unremarkable except as noted in HPI & below Physical Exam Constitutional: + ill appearing Anxious pale. Results & Data Vital Signs (Past 12 Hours) Vital Signs Temp Pulse Pulse Resp BP BP Pulse Ox 06/19/19 09:30 36.9 C 84 18 110/71 98 06/19/19 09:15 36.8 C 75 18 107/69 98 06/19/19 08:57 36.8 C 87 18 105/66 98 06/19/19 07:40 36.7 C 81 16 90/53 L 95 06/19/19 03:46 36.5 C 86 16 121/69 99 06/18/19 23:36 36.4 C L 87 16 98/60 L 99 06/18/19 22:20 86 PG Care Time/CCT Total # of Minutes Spent Total Time Spent with Patient: Total time spent is greater than 50% in coordination of care (as documented) at patient's floor/unit and/or counseling patient: (1) Multiple myeloma Multiple myeloma remission status: unspecified Qualified Code(s): C90.00 - Multiple myeloma not having achieved remission
--- NOTE | 2019-06-19 11:30 | Consultation ---
Date of Consultation June 19, 2019 Assessment & Plan (1) JACQUIE (acute kidney injury): Pt discussed with Dr Flores, pt to be scheduled for permcath insertion in OR tomorrow. Will need to have platelets running upon arrival to OR to minimize risk of bleeding. Pt agreeable. Patient was seen, examined, and chart reviewed. Agree with exam and treatment plan of the Vascular PA. History of Present Illness Reason for Consultation: need permcath for HD Requesting Physician: Sharonda Davdison Attending Physician: Naresh Poole MD History of Present Illness 68 yo f with multiple medical problems, including multiple myeloma with pancytopenia, remote hx of TIA, and remote hx of DVT, admitted with presumed GI bleed and JACQUIE, seen in consultation today for permcath insertion for initiation of HD. Pt states she is very fatigued. She has been undergoing treatments for MM, and requiring transfusions of PRBC and platelets regularly. She now has JACQUIE and decreased urine output that does not seem to be improving. Denies KEARNS, fever, chest pain, SOB, abd pain, N/V, rest pain, claudication, other complaints. Allergies Allergy/AdvReac Type Severity Reaction Status Date / Time ibuprofen AdvReac Tachycardia Verified 06/16/19 17:09 Home Medications Home Medications Medication Instructions Recorded Confirmed Type aspirin [Vika Aspirin] 325 mg PO QAM 08/08/18 06/16/19 History sertraline [Zoloft] 100 mg PO BID 08/08/18 06/16/19 History oxycodone 10 mg PO Q6 PRN #12 tab 08/16/18 06/16/19 Rx lenalidomide [Revlimid] 25 mg PO DAILY 06/13/19 06/16/19 History acyclovir 400 mg PO BID 06/16/19 06/16/19 History dexamethasone 4 mg PO DIRECTED 06/16/19 06/16/19 History diphenhydramine-acetaminophen 1 tab PO HS PRN 06/16/19 06/16/19 History [Tylenol PM Extra Strength] omeprazole 40 mg PO QAM 06/16/19 06/16/19 History prochlorperazine maleate 10 mg PO Q6H PRN 06/16/19 06/16/19 History Patient History Medical History History of TIA (transient ischemic attack) JACQUIE (acute kidney injury) History of TIA (transient ischemic attack) History of hysterectomy Leukopenia Mood disorder Multiple myeloma Family History Other Family history non-contributory Social History Preferred Language: Vietnamese Communication Ability: Effective Visual Impairment: No Limitations Hearing Ability: Normal Branch Services Manager Required: No Beliefs That Will Affect Care: None Current Living Situation: Alone Current Living Situation Comment: lives with son Feels Safe at Home: Yes Smoking Status: Former smoker Second Hand Exposure: No ; Hx Alcohol Use: No Hx Substance Use: No Review of Systems Review of Systems: All systems reviewed & are unremarkable except as noted in HPI & below Physical Exam Constitutional: WD/WN, vitals as above well developed, well nourished, + ill appearing, + obese, + frail appearing, well groomed, cooperative and comfortable; not in distress and not combative Eyes: PERRL, conjunctivae normal, anicteric sclerae EOM intact bilaterally ENMT: external ear and nose normal, oropharynx normal Ears: no hearing impairment Nose: no nasal discharge Throat: no posterior oropharynx abnormality Neck: trachea midline, no thyromegaly no neck crepitus and neck nontender Respiratory: normal respiratory effort, lungs clear to auscultation able to speak in complete sentences; does not use accessory muscles and no cough Auscultation: + diminished lung sounds; no rhonchi and no wheezes Cardiovascular: RRR, no murmur, no edema Rate/Rhythm: regular rate, regular rhythm, + bradycardic and + tachycardic Heart Sounds: no gallop and no murmur Vessels: + JVD, femoral pulses present, posterior tibial pulses present, dorsalis pedis pulses present, brachial pulses present and radial pulses present; no carotid bruit, no femoral bruit and + abnormal peripheral pulses Extremities: normal capillary refill and + edema (trace) Gastrointestinal (Abdomen): normal bowel sounds, soft, nontender, no hepatosplenomegaly Inspection/Auscultation: abdomen normal to inspection and normal bowel sounds; abdomen not distended Percussion/Palpation: abdomen soft and + pulsatile mass; abdomen nontender, no guarding and abdomen not rigid Musculoskeletal: no cyanosis or clubbing, extremities motor strength 5/5 Head/Neck/Chest: normocephalic, head atraumatic and neck supple Extremities: extremities normal to inspection and strength 5/5 throughout; full ROM of extremities Skin: no rashes, warm and dry + rash; no lesions, no ulcers, no induration, no erythema and no mottling Neurologic: moves all extremities and awake; no focal motor deficits and not confused Speech / Cognition: no expressive aphasia and no receptive aphasia Motor/Sensory: no tremor Cranial Nerves: EOM intact bilaterally and normal facial strength Psychiatric: Orientation: alert, oriented x 3 and cooperative Apperance: appropriately dressed, appropriately groomed and appeared stated age Affect: + depressed affect Thought Process: goal directed thought process, linear/logical thought process and clear/coherent thought process Cognition: recent memory grossly intact, remote memory grossly intact, attention grossly intact and language grossly intact Estimated Intelligence: average estimated intelligence Results & Data Vital Signs (Past 12 Hours) Vital Signs Temp Pulse Pulse Resp BP BP Pulse Ox 06/19/19 11:00 36.8 C 85 18 104/60 93 06/19/19 10:00 36.6 C 100 H 20 111/71 99 06/19/19 09:30 36.9 C 84 18 110/71 98 06/19/19 09:15 36.8 C 75 18 107/69 98 06/19/19 08:57 36.8 C 87 18 105/66 98 06/19/19 07:40 36.7 C 81 16 90/53 L 95 06/19/19 03:46 36.5 C 86 16 121/69 99 06/18/19 23:36 36.4 C L 87 16 98/60 L 99
[2019-06-19] MEDS ORDERED: ALBUT/IPRATROP 3MG/0.5MG NEB 3 ML VIAL NEB STA (14:40)
--- NOTE | 2019-06-19 14:42 | Anesthesiology Consultation ---
Date of Service June 19, 2019 Obesity Multiple Myeloma Pancytopenia Acute renal failure Assessment & Plan (1) Encounter for pre-operative examination: Chart Review Chart Review: Pending: Refer to Additional Notes / Consult section and Patient NOT seen in Pre Admission Testing Concerned that patient may be fluid overloaded. We are getting a CXR and duoneb treatment and will most likely plan to delay the procedure. She may need dialysis sooner than anticipated. Consults Requested none Proposed Anesthesia Risk / Benefits Reviewed With: PT / POA / Parent / Guardian, Accepts Plan and Informed Consent Obtained History Surgery Operation Date: 06/19/19 08:30 Proposed Procedures p Esophagogastroduodenoscopy Dr Carroll - Scott Carroll Operation Date: 06/20/19 08:00 Proposed Procedures p Perm Catheter Placement - Riley Flores MD Height/Weight Height: 5 ft 5 in Weight: 99 kg Allergies Allergy/AdvReac Type Severity Reaction Status Date / Time ibuprofen AdvReac Tachycardia Verified 06/16/19 17:09 Medications Home Medications Medication Instructions Recorded Confirmed Last Taken aspirin [Vika Aspirin] 325 mg PO QAM 08/08/18 06/16/19 06/16/19 sertraline [Zoloft] 100 mg PO BID 08/08/18 06/16/19 06/16/19 oxycodone 10 mg PO Q6 PRN #12 tab 08/16/18 06/16/19 Unknown lenalidomide [Revlimid] 25 mg PO DAILY 06/13/19 06/16/19 06/16/19 acyclovir 400 mg PO BID 06/16/19 06/16/19 06/16/19 dexamethasone 4 mg PO DIRECTED 06/16/19 06/16/19 06/16/19 diphenhydramine-acetaminophen 1 tab PO HS PRN 06/16/19 06/16/19 Unknown [Tylenol PM Extra Strength] omeprazole 40 mg PO QAM 06/16/19 06/16/19 06/16/19 prochlorperazine maleate 10 mg PO Q6H PRN 06/16/19 06/16/19 Unknown Active Medications Generic Name Dose Route Start Last Admin Trade Name Freq PRN Reason Stop Dose Admin Acyclovir 200 mg 06/16/19 21:00 06/19/19 08:41 Zovirax PO 10/20/19 20:59 200 mg BID JOVANY Administration Pantoprazole Sodium 40 mg/ 100 mls @ 20 mls/hr 06/16/19 19:00 06/19/19 10:57 Dextrose IV 07/16/19 18:59 20 mls/hr Q5H JOVANY Administration Sodium Chloride 1,000 mls @ 50 mls/hr 06/16/19 20:30 06/19/19 09:53 Nss 1000ml IV 07/16/19 20:29 Infused .Q20H JOVANY Infusion Miscellaneous 1 ea 06/17/19 00:00 06/19/19 08:41 Order Awaiting Action N/A 07/17/19 00:00 Not Given QS JOVANY Sertraline HCl 50 mg 06/16/19 21:00 06/19/19 09:03 Zoloft PO 07/16/19 20:59 50 mg BID JOVANY Administration Past Medical History Medical History History of TIA (transient ischemic attack) JACQUIE (acute kidney injury) History of TIA (transient ischemic attack) History of hysterectomy Leukopenia Mood disorder Multiple myeloma Exercise / Class Metabolic Activity II 4-5 Yardwork/Stairs/Walk up hill Past Family History Family History Other Family history non-contributory Past Anesthesia History No Hx of Anesthesia Complications and No Family Hx of Anesthesia Complications History of PONV No Hx of PONV and No Hx of Motion Sickness Social History Smoking Status: Former smoker Hx Alcohol Use: No Hx Substance Use: No substance use type: does not use Physical Exam Vital Signs Last Vital Signs Temp 37.2 C 06/19/19 14:37 Pulse 99 H 06/19/19 14:37 Resp 28 H 06/19/19 14:37 BP 123/69 06/19/19 14:37 Pulse Ox 100 06/19/19 14:37 ENMT Mouth: no dentition abnormality Thyromental Distance: > or= 3.5 Finger Breadths Mallampati Class: II Neck normal visual inspection Respiratory normal respiratory effort Auscultation: lungs clear to auscultation bilaterally Cardiovascular Rate/Rhythm: regular rate and regular rhythm Psychiatric Orientation: alert Testing Laboratory Results 06/19/19 05:34 06/19/19 05:34 PT 12.9 Seconds (9.0-12.0) H 06/16/19 16:20 INR 1.3 (0.9-1.1) H 06/16/19 16:20 Blood Type A Positive 06/19/19 07:31 Antibody Screen NEGATIVE 06/19/19 07:31
--- NOTE | 2019-06-19 15:01 | XRay Report ---
XR chest 1V portable CLINICAL HISTORY: Dyspnea. COMPARISON STUDY: Chest CT August 08, 2018 and chest radiograph June 16, 2019. FINDINGS: There is no pneumothorax or pleural effusion. Cardiomegaly is unchanged. Mediastinal contou rs are stable. The appearance of the chest is unchanged. There is pulmonary vascular congestion witho ut overt pulmonary edema. IMPRESSION: No change in appearance of the chest with pulmonary vascular congestion. Electronically signed by: Doron Jacobsen M.D. 06/19/2019 2:59 PM
--- NOTE | 2019-06-19 15:05 | Hospitalist Progress Note ---
Date of Service June 19, 2019 Assessment & Plan (1) Melena: Likely due to duodenal ulcer. CT a/p on 06/16 shows inflammatory changes in the duodenal bulb and descending duodenum concerning for duodenitis or duodenal ulcer. Per notes, she was on a full-strength aspirin which could have c ontributed. - PPI ggt - Held home ASA - Transfuse for hgb > 8 and platelets > 30. - On 06/18, at goal for both counts, now below for both on 06/19. - GI consulted - Plan for EGD on 06/19, but now canceled due to respiratory distress. (2) Pancytopenia: Due to multiple myeloma with her Revlimid chemotherapy possibly worsening it. - Transfuse as above - Oncology following - Discussed multiple times on 06/17. - On 06/18, now neutropenic as well. Precautions instituted. Low threshold for abx if febrile. - On 06/19, all lines dropped. (3) Multiple myeloma: Peripheral smear shows immature marrow forms which Dr. Billings reports indicates means she likely has significant disease burden in her bone marrow. - Bone marrow biopsy at some point, though must deal with acute issues first. - Continue dexamethasone - Continue lenalidomide if able to obtain - Palliative care consult offered, but she declined on 06/18 - Discussed with [facility]. She will likely need BMT eventually. Will accept her once she is stable. (4) Depressed: Reports "fatigue," and mood is understandably anxious. - Continue sertraline (5) History of DVT (deep vein thrombosis): Unclear when this was. Not on anticoagulation as an outpatient, just full-strength aspirin. - Given overall issues, obviously cannot start DVT chemoprophylaxis at this time. - Hold ASA Subjective Further episode of melena this morning. Remains a chronically tired. Review of Systems Review of Systems: All systems reviewed & are unremarkable except as noted in HPI & below Physical Exam Constitutional: WD/WN, vitals as above + in distress Eyes: EOM intact bilaterally; no conjunctival abnormality ENMT: external ear and nose normal, oropharynx normal Neck: trachea midline, no thyromegaly normal visual inspection Respiratory: normal respiratory effort, lungs clear to auscultation no respiratory distress Cardiovascular: RRR, no murmur, no edema Gastrointestinal (Abdomen): Inspection/Auscultation: abdomen normal to inspection; abdomen not distended Musculoskeletal: no cyanosis or clubbing, extremities motor strength 5/5 Skin: no rashes, warm and dry Neurologic: moves all extremities and awake Psychiatric: Orientation: alert, oriented to person and cooperative Affect: + tearful affect Results & Data Vital Signs (Past 12 Hours) Vital Signs Temp Pulse Pulse Resp BP BP Pulse Ox 06/19/19 14:37 37.2 C 99 H 28 H 123/69 100 06/19/19 14:08 84 100/54 L 06/19/19 13:59 116 H 20 102/64 06/19/19 13:44 91 H 18 108/67 100 06/19/19 13:29 36.7 C 95 H 20 118/75 99 06/19/19 13:17 36.7 C 92 H 22 102/67 100 06/19/19 13:00 37.1 C 90 22 106/62 99 06/19/19 12:55 36.9 C 88 20 105/68 100 06/19/19 12:00 37.0 C 90 20 117/74 99 06/19/19 11:57 89 16 114/67 100 06/19/19 11:09 86 06/19/19 11:00 36.8 C 85 18 104/60 93 06/19/19 10:00 36.6 C 100 H 20 111/71 99 06/19/19 09:30 36.9 C 84 18 110/71 98 06/19/19 09:15 36.8 C 75 18 107/69 98 06/19/19 08:57 36.8 C 87 18 105/66 98 06/19/19 07:40 36.7 C 81 16 90/53 L 95 06/19/19 03:46 36.5 C 86 16 121/69 99 PG Care Time/CCT Total # of Minutes Spent Total Time Spent with Patient: Total time spent is greater than 50% in coordination of care (as documented) at patient's floor/unit and/or counseling patient: 45 (1) Multiple myeloma Multiple myeloma remission status: unspecified Qualified Code(s): C90.00 - Multiple myeloma not having achieved remission
--- NOTE | 2019-06-19 15:34 | Progress Note ---
DATE: 06/19/2019 The patient presents to the endoscopy center for an EGD for anemia. At presentation, the patient was markedly short of breath. She is receiving blood and has been receiving IV fluids. She has made no urine today and we decided to postpone the procedure. She was seen in evaluation by Dr. Ramires from anesthesia as well and chest x-ray was ordered and patient was referred to the ICU for further care. Creatinine is 5 and it is likely that she will need to be dialyzed to remove some of the extra fluid. IMPRESSION: The patient has myeloma, renal failure, anemia and shortness of breath. At this point, EGD will be postponed until she is more medically stable and can be dialyzed.
[2019-06-19] MEDS ORDERED: ICU PROTOCOL FOR HYPERGLYCEMIA PRN (15:43)
--- NOTE | 2019-06-19 16:33 | Procedure Note ---
Procedure Note Date of Service June 19, 2019 Procedure date: Noted above Procedure: Temporary hemodialysis catheter Pre-procedure indication: Need for temporary hemodialysis Post-procedure Diagnosis: same as above Prior to Procedure: Informed Consent: The risks, benefits, indications, potential complications, and alternatives were explained to the patient and informed consent obtained. Attending Staff: Paula Santoyo DO Resident/APC: Regulo Skin Prep: Chlorhexidine Anesthesia: 4 mL 1% lidocaine without epinephrine The identity of the patient was confirmed and a bedside time out was performed. Description of Procedure: After sterile prep and sterile drape utilizing standard sterile technique the superficial skin of the right internal jugular area was anesthetized. The target vessel was identified and entered with an 18- gauge needle. Dark venous blood return was noted. A guidewire was inserted through the needle and into the vessel. The needle was withdrawn and a skin lawson was made. A tissue dilator was advanced via Seldinger technique and removed. A double lumen catheter was inserted via Seldinger technique and the guidewire removed. All ports billy and flushed easily. A Biopatch was placed, and the catheter was secured via nylon suture. A sterile dressing was then applied. Complications: None Estimated blood loss: Trace Patient tolerated the procedure well. Procedure Date: Noted Above Procedure: Procedural Ultrasound Indication: Central venous access Attending: Paula Santoyo DO Resident/Physician Educational Psychology Teacher: Regulo Artery visualized: Yes Vein visualized: Yes Compressible Vein: Yes Vein patent: Yes Guidewire or Short Catheter seen in vein prior to dilation: Yes Line confirmed in Vein with ultrasound: Yes Lung Sliding on side of attempt (if applicable): NA If no lung sliding or not obtained has CXR been ordered: Yes Impression: Successful central venous access placement Images obtained are saved for permanent record Coding CPT Codes Tubes, Drains, and Vasc Access - Tubes, Drains, and Vasc Access: Insertion of cannula for hemodialysis ([id number]) Tubes, Drains, and Vasc Access - Tubes, Drains, and Vasc Access: Ultrasound Guidance For Vascular ([id number])
[2019-06-19 16:37] LABS: iSTAT Site Art Line; iSTAT Venous Carbon Dioxide 13 mEq/l (24-31)
--- NOTE | 2019-06-19 16:50 | XRay Report ---
XR chest 1V portable HISTORY: 68 years-old Female Confirm central line placement status post placement of a right IJ cent ral venous catheter COMPARISON: Chest radiograph 06/19/2019 at 2:46 PM TECHNIQUE: Portable AP view of the chest FINDINGS: Status post placement of a right IJ central venous catheter with distal tip terminating within the ex pected location of the inferior SVC. No postprocedural pneumothorax identified. Unchanged cardiomegal y. Mediastinal contours are stable. Mild pulmonary vascular congestion without overt pulmonary edema persists. No large pleural effusion. Degenerative changes of the shoulders and spine. IMPRESSION: 1. Status post placement of a right IJ central venous catheter, distal tip terminating in the expecte d location of the inferior SVC. No postprocedural pneumothorax. 2. Cardiomegaly with pulmonary vascular congestion. The above report was generated using voice recognition software. It may contain grammatical, syntax o r spelling errors. Electronically signed by: Lemuel Quintana M.D. 06/19/2019 4:49 PM
[2019-06-19 18:29] LABS: Hepatitis B Surface Ab Quant < 3.10 mIU/mL (>or=10mIU/mL Immune); Hepatitis B Surface Antibody Non-Immune
[2019-06-19 18:40] LABS: Hepatitis B Surface Antigen Neg (Neg)
--- NOTE | 2019-06-19 19:10 | Critical Care Consultation ---
Date of Consultation June 19, 2019 Assessment & Plan (1) Melena: Reason Critically Ill: Acute Gi bleed in setting of recurrent multiple myeloma and acute renal failure Cardiovascular Hemodynamically stable History of TIA on ASA at home No acute issue, will continue to monitor pressure Respiratory In respiratory distress likely secondary to fluid overload given her oliguric renal failure Patient will need emergent dialysis, placing IJ dialysis line and consulting dialysis nursing Saturating well on 2L nasal cannula at present Will monitor and wean oxygen as tolerated Gastrointestinal CT scan showing likely duodenal ulcer Melena on presentation Was due for upper endoscopy today and procedure was cancelled secondary to respiratory distress Patient has required transfusion previously in this admission, last hemoglobin was 7.0 this morning, rechecking now, will transfuse below 7 Pantoprazole for likely ulcer Will need scope once medically stable NPO Heme Recurrence of multiple myeloma confirmed by oncology and pathology Patient accepted for treatment at [facility] once medically stable Pancytopenic Platelets 28, hemoglobin 7 will transfuse both as needed Renal Patient with acute renal failure, creatinine currently 5.8 from baseline of .8 Dialysis line placed in ICU, will receive dialysis this evening Tunneled catheter to be placed in OR tomorrow with Dr. Flores Nephrology consulted Infectious Disease No acute infectious process Code: Full DVT PPx: Contraindicated in setting of acute bleed SCD's F/E/N: NPO, holding IV fluid at this time Dispo: ICU for emergent dialysis (2) History of DVT (deep vein thrombosis): (3) Pancytopenia: (4) Lytic lesion of bone on x-ray: (5) Elevated serum creatinine: (6) Multiple myeloma: (7) JACQUIE (acute kidney injury): (8) Thrombocytopenia: (9) GI bleed: (10) Admitted to intensive care unit: Supervising Physician Co-Signing Physician Notes Dr. Rajput was resident physician during care of patient. I separately evaluated patient for cub[place] portions of the history and the exam. I was present during the critical portion of medical decision making, and I discussed the case with the resident. I generally agree with the findings and plan. Patient decompensated secondary to acute kidney injury with need for dialysis. Underlying medical issues include gastrointestinal losses and acute multiple myeloma. The ultimate plan is to transfer to [facility] however in discussion with service lines the patient was going to undergo upper endoscopy prior to transfer. The upper endoscopy was canceled secondary to respiratory distress secondary to volume overload and a temporary hemodialysis catheter was placed and patient underwent emergent hemodialysis. History of Present Illness Reason for Consultation: Multiple Myeloma, need for emergent dialysis Requesting Physician: Naresh Poole MD Attending Physician: Naresh Poole MD History of Present Illness Rebecca Fuller is a 68 year old woman in hospital for a GI bleed. She was found to have a recurrence of her multiple myeloma which is likely causing her acute renal failure. She was referred to ICU secondary to fluid overload and the need for emergent dialysis just prior to her scheduled procedure with Dr. Carroll. Upper endoscopy showing Creatinine baseline of .85 in late March of this year, jumped to 4.6 on admission, 5.8 currently. CXR showing pulmonary vascular congestion Patient to be transferred to [facility] once medically stable to do so. Allergies Allergy/AdvReac Type Severity Reaction Status Date / Time ibuprofen AdvReac Tachycardia Verified 06/16/19 17:09 Home Medications Home Medications Medication Instructions Recorded Confirmed Type aspirin [Vika Aspirin] 325 mg PO QAM 08/08/18 06/16/19 History sertraline [Zoloft] 100 mg PO BID 08/08/18 06/16/19 History oxycodone 10 mg PO Q6 PRN #12 tab 08/16/18 06/16/19 Rx lenalidomide [Revlimid] 25 mg PO DAILY 06/13/19 06/16/19 History acyclovir 400 mg PO BID 06/16/19 06/16/19 History dexamethasone 4 mg PO DIRECTED 06/16/19 06/16/19 History diphenhydramine-acetaminophen 1 tab PO HS PRN 06/16/19 06/16/19 History [Tylenol PM Extra Strength] omeprazole 40 mg PO QAM 06/16/19 06/16/19 History prochlorperazine maleate 10 mg PO Q6H PRN 06/16/19 06/16/19 History Patient History Medical History History of TIA (transient ischemic attack) JACQUIE (acute kidney injury) History of TIA (transient ischemic attack) History of hysterectomy Leukopenia Mood disorder Multiple myeloma Family History Other Family history non-contributory Social History Preferred Language: Ukrainian Communication Ability: Effective Visual Impairment: No Limitations Hearing Ability: Normal Business Administrator Required: No Beliefs That Will Affect Care: None Current Living Situation: Alone Current Living Situation Comment: lives with son Feels Safe at Home: Yes Smoking Status: Former smoker Second Hand Exposure: No ; Hx Alcohol Use: No Hx Substance Use: No Review of Systems Review of Systems: All systems reviewed & are unremarkable except as noted in HPI & below Physical Exam Constitutional: Patient in moderate distress, breathing rapidly and shallowly uncomfortable Respiratory: + respiratory distress and + labored breathing; no cough and + not able to speak in complete sentence Auscultation: + diminished lung sounds and + rales Cardiovascular: Rate/Rhythm: regular rate and regular rhythm Heart Sounds: no click, no gallop, no murmur and no cardiac rub Gastrointestinal (Abdomen): Inspection/Auscultation: abdomen not distended Percussion/Palpation: abdomen soft; abdomen nontender Results & Data Vital Signs (Past 12 Hours) Vital Signs Temp Pulse Pulse Pulse Resp BP BP 06/19/19 18:30 103 H 113/35 L 06/19/19 18:15 100 H 116/42 L 06/19/19 18:00 96 H 115/56 L 06/19/19 17:45 103 H 122/55 L 06/19/19 17:30 97 H 106/50 L 06/19/19 17:15 110 H 108/56 L 06/19/19 17:00 37.2 C 103 H 06/19/19 15:43 99 H 06/19/19 14:55 95 H 24 06/19/19 14:52 37.2 C 99 H 24 123/69 06/19/19 14:37 37.2 C 99 H 28 H 123/69 06/19/19 14:08 84 100/54 L 06/19/19 13:59 116 H 20 102/64 06/19/19 13:44 91 H 18 108/67 06/19/19 13:29 36.7 C 95 H 20 118/75 06/19/19 13:17 36.7 C 92 H 22 102/67 06/19/19 13:00 37.1 C 90 22 106/62 06/19/19 12:55 36.9 C 88 20 105/68 06/19/19 12:00 37.0 C 90 20 117/74 06/19/19 11:57 89 16 114/67 06/19/19 11:09 86 06/19/19 11:00 36.8 C 85 18 104/60 06/19/19 10:00 36.6 C 100 H 20 111/71 06/19/19 09:30 36.9 C 84 18 110/71 06/19/19 09:15 36.8 C 75 18 107/69 06/19/19 08:57 36.8 C 87 18 105/66 06/19/19 07:40 36.7 C 81 16 90/53 L Pulse Ox 06/19/19 18:30 06/19/19 18:15 06/19/19 18:00 06/19/19 17:45 06/19/19 17:30 06/19/19 17:15 06/19/19 17:00 06/19/19 15:43 06/19/19 14:55 100 06/19/19 14:52 100 06/19/19 14:37 100 06/19/19 14:08 06/19/19 13:59 06/19/19 13:44 100 06/19/19 13:29 99 06/19/19 13:17 100 06/19/19 13:00 99 06/19/19 12:55 100 06/19/19 12:00 99 06/19/19 11:57 100 06/19/19 11:09 06/19/19 11:00 93 06/19/19 10:00 99 06/19/19 09:30 98 06/19/19 09:15 98 06/19/19 08:57 98 06/19/19 07:40 95 PG Care Time/CCT Total # of Minutes Spent Total Time Spent with Patient: Total time spent is greater than 50% in coordination of care (as documented) at patient's floor/unit and/or counseling patient: Critical Care Time: Yes Total Critical Care Time: 60 I have personally spent 60 minutes of critical care time in the direct management of this patient. This is a life/limb threatening event. This includes time spent evaluating patient, direct bedside care, chart review, placing orders, interpretation of diagnostic studies, discussion with consultants, patient, and/or family members regarding treatment decisions, as well as other required patient management activities. This time is exclusive of all separately billable procedures, and teaching time and separate from and in addition to any other critical care service time. Resident Activity Tracking Resident Involvement: Resident Care Provided Care Provided: Adult Hospital Medicine (1) GI bleed GI bleed type/associated pathology: unspecified gastrointestinal hemorrhage type Qualified Code(s): K92.2 - Gastrointestinal hemorrhage, unspecified (2) Multiple myeloma Multiple myeloma remission status: unspecified Qualified Code(s): C90.00 - Multiple myeloma not having achieved remission
[2019-06-19 20:43] LABS: Hematocrit (blood only) 23.5 % (37-47); Mean Corpuscular Hemoglobin 32.4 pg (25-34); Mean Corpuscular Volume 95.1 fL (80-100); Mean Platelet Volume 9.7 fL (7.4-10.4); Nucleated RBC # (auto) 0.25 K/uL (0-0); Nucleated RBC % (auto) 19.4 %; Platelet Count 37 K/uL (130-400); RDW Coefficient of Variation 19.8 % (11.5-14.5); Red Blood Count 2.47 M/uL (4.2-5.4); White Blood Count 1.28 K/uL (4.8-10.8)
[2019-06-19 20:44] LABS: Rouleaux 2+
[2019-06-19 20:46] LABS: ALC (manual) 0.33 K/uL (1.2-3.4); ANC (manual) 0.89 K/uL (1.4-6.5); Eosinophils # (manual) 0.05 K/uL (0-0.5); Eosinophils % (manual) 3.7 %; Lymphocytes # (manual) 0.33 K/uL (1.2-3.4); Lymphocytes % (manual) 25.7 %; Myelocytes # (manual) 0.01 K/uL (0-0); Myelocytes % (manual) 0.9 %; Neutrophils # (manual) 0.89 K/uL (1.4-6.5); Neutrophils % (manual) 69.7 %
[2019-06-19 20:48] LABS: BUN Creatinine Ratio 17.2 (10-20); Calcium 7.1 mg/dl (8.5-10.1); Creatinine Clr Calc Pharmacy 15.6 ml/min; Est GFR (African American) 12.4; Est GFR (Non-African American) 10.7; Potassium 3.2 mmol/L (3.5-5.1)
[2019-06-20] MEDS: PANTOprazole 40 MG in DEXTROSE 5% 100 ML IV SCH ×3 (02:21→12:43)
[2019-06-20 05:04] LABS: INR 1.2 (0.9-1.1); Prothrombin Time 12.4 Seconds (9.0-12.0)
[2019-06-20 05:20] LABS: Mean Corpuscular Hgb Conc 34.3 g/dL (32-36); Mean Platelet Volume 10.1 fL (7.4-10.4); Nucleated RBC # (auto) 0.16 K/uL (0-0); Nucleated RBC % (auto) 15.5 %; Platelet Count 27 K/uL (130-400)
[2019-06-20 05:21] LABS: Hematocrit (blood only) 20.1 % (37-47); Hemoglobin 6.9 g/dL (12.0-16.0); Mean Corpuscular Volume 96.2 fL (80-100); RDW Coefficient of Variation 19.8 % (11.5-14.5); RDW Standard Deviation 67.5 fL (36.4-46.3); Red Blood Count 2.09 M/uL (4.2-5.4); White Blood Count 1.06 K/uL (4.8-10.8)
[2019-06-20] MEDS ORDERED: SODIUM CHLORIDE 0.9% 250 ML IV PRN ×2 (05:26→18:45)
[2019-06-20 05:51] LABS: Albumin Globulin Ratio 0.5 (0.9-2); Albumin Level 2.5 gm/dl (3.4-5.0); BUN Creatinine Ratio 16.6 (10-20); Bilirubin,Total 1.8 mg/dl (0.2-1); Calcium 6.4 mg/dl (8.5-10.1); Creatinine Clr Calc Pharmacy 12.9 ml/min; Est GFR (African American) 9.8; Est GFR (Non-African American) 8.4; Globulin 5.2 gm/dl (2.5-4.0); Magnesium 2.1 mg/dl (1.8-2.4); Phosphorus 2.1 mg/dl (2.5-4.9); Potassium 3.4 mmol/L (3.5-5.1); Total Protein 7.7 gm/dl (6.4-8.2)
[2019-06-20] MEDS ORDERED: CEFAZOLIN 2000MG 2,000 MG/15 ML SYR IV SCH (06:00)
[2019-06-20 06:52] LABS: Anisocytosis Present; Platelet Estimate Decreased (Normal)
[2019-06-20 06:58] LABS: ALC (manual) 0.31 K/uL (1.2-3.4); ANC (manual) 0.63 K/uL (1.4-6.5); Basophils # (manual) 0.01 K/uL (0-0.2); Basophils % (manual) 1.1 %; Blast # (manual) 0.02 K/uL (0-0); Blast Cells % (manual) 1.7 %; Eosinophils # (manual) 0.07 K/uL (0-0.5); Eosinophils % (manual) 6.2 %; Lymphocytes # (manual) 0.31 K/uL (1.2-3.4); Lymphocytes % (manual) 28.8 %; Monocytes # (manual) 0.02 K/uL (0.11-0.59); Monocytes % (manual) 1.7 %; Myelocytes # (manual) 0.01 K/uL (0-0); Myelocytes % (manual) 1.1 %; Neutrophils # (manual) 0.63 K/uL (1.4-6.5); Neutrophils % (manual) 59.4 %
--- NOTE | 2019-06-20 07:07 | Critical Care Progress Note ---
Date of Service June 20, 2019 Assessment & Plan (1) Melena: Reason Critically Ill: Acute Gi bleed in setting of recurrent multiple myeloma and acute renal failure Cardiovascular Patient continues to bleed, transfused again overnight due to hemoglobin of 6.9. Patient will need to be transferred for continuing need for blood products and further treatment of her renal failure and multiple myeloma History of TIA on ASA at home Will continue to monitor pressure Respiratory In respiratory distress likely secondary to fluid overload given her oliguric renal failure Since she was dialyzed her breathing has improved markedly Saturating well on room air Will monitor and wean oxygen as tolerated Gastrointestinal CT scan showing likely duodenal ulcer Melena on presentation Was due for upper endoscopy yesterday and procedure was cancelled secondary to respiratory distress Patient continuing to require blood products, last hemoglobin was 6.9 finishing transfusion now Will check h and h q 6, will transfuse below 7 Pantoprazole for suspected bleeding ulcer Will need scope now that respiratory status is stable NPO Heme Recurrence of multiple myeloma confirmed by oncology and pathology Patient accepted for treatment at [facility] once medically stable Pancytopenic Platelets 27, hemoglobin 6.9 both unstable will transfuse both as needed Renal Patient with acute renal failure, creatinine up to 5.8 from baseline of .8 Dialysis line placed in ICU, received first dialysis treatment last night Breathing improved and creatinine dropped to 4.09, up to 4.97 today, potassium 3.4 other electrolytes reasonable Nephrology consulted Infectious Disease No acute infectious process Code: Full DVT PPx: Contraindicated in setting of acute bleed SCD's F/E/N: NPO, holding IV fluid at this time Dispo: ICU, hope to transfer to tertiary care center today (2) History of DVT (deep vein thrombosis): (3) Pancytopenia: (4) Lytic lesion of bone on x-ray: (5) Elevated serum creatinine: (6) Multiple myeloma: (7) JACQUIE (acute kidney injury): (8) Thrombocytopenia: (9) GI bleed: (10) Admitted to intensive care unit: Supervising Physician Co-Signing Physician Notes Dr. Rajput was resident physician during care of patient. I separately evaluated patient for [place] portions of the history and the exam. I was present during the critical portion of medical decision making, and I discussed the case with the resident. I generally agree with the findings and plan. Patient's respiratory status was improved after hemodialysis. We discussed the case with gastroenterology, anesthesia, hospitalist medicine, as well as involved the physicians at [facility]. At this point the patient is still being transferred to [facility] however we will tentatively plan a EGD, there is no bed availability at [facility] and we will continue with the current treatment plan of upper endoscopy to evaluate for ongoing gastrointestinal losses. Patient did undergo dialysis prior to EGD today. Patient has had a platelet transfusion for thrombocytopenia, it is noted that during the intubation for the EGD the patient apparently suffered an abrasion to the oral cavity and has been continuing to ooze since that time. I personally evaluated the patient, it appeared that there was a small abrasion over the right tonsillar pillar, a thrombin soaked 4 x 4 gauze was placed in the area. Less oozing was noted to come from the patient's oropharynx. I updated the family and a bed became available at [facility] and she is being readied for flight for further evaluation of her multiple myeloma. At approximately 1800 the patient went into a narrow complex tachycardic rhythm consistent with atrial flutter. She has a history of TIAs in the past, we did not note any atrial fibrillation atrial flutter during her stay here. She is not a candidate for anticoagulation given significant anemia, thrombocytopenia, gastrointestinal hemorrhage. We attempted rate control with esmolol she received 2 boluses and unfortunately hemodynamics did not tolerate so we transitioned to cardioversion. She underwent a synchronized cardioversion with 200 J times once and converted to a normal sinus rhythm. We are volume expanded the patient with albumin and I have ordered an additional unit of blood to be transfused at this time. We are starting phenylephrine for some vasoactive support in the meantime. Aniyah Fuller is lying in bed breathing much more comfortably post hemodialysis. She is complaining of discomfort in her neck at her IJ sight, but says it is mild. She does not endorse any abdominal pain or tenderness, does not endorse any shortness of breath, chest pain, calf pain or other issues on full review of systems this morning. Review of Systems Review of Systems: All systems reviewed & are unremarkable except as noted in HPI & below Physical Exam Physical Exam: Constitutional: Patient resting in bed, in mild distress appear s lethargic and pale. Eyes: Anicteric sclerae, pupils equal round reactive to light no nystagmus, extraocular motions intact Neck: Right IJ in place no hematoma visualized, bleeding appears to stopped, despite complaints of discomfort no tenderness on palpation of site Respiratory: Chest expansion symmetric, soft rales bilaterally otherwise good air entry Cardiovascular: Chest normal to inspection, regular rate regular rhythm, quiet systolic murmur, patient with conjunctival pallor, pulses strong in all extremities. GI: Abdomen soft nontender intense palpation rounds duodenal area not able to elicit tenderness Results & Data Vital Signs (Past 12 Hours) Vital Signs Temp Pulse Pulse Resp BP BP Pulse Ox 06/20/19 06:06 36.8 C 83 20 109/58 L 99 06/20/19 05:51 36.6 C 89 20 120/67 97 06/20/19 05:32 36.6 C 82 16 90/55 L 96 06/20/19 05:00 89 17 95/54 L 96 06/20/19 04:00 36.5 C 83 18 104/50 L 95 06/20/19 03:00 84 24 110/57 L 06/20/19 02:00 88 16 109/55 L 96 06/20/19 01:00 84 17 97/55 L 96 06/20/19 00:00 36.5 C 85 17 97/48 L 97 06/19/19 23:00 93 H 20 103/63 96 06/19/19 22:00 89 20 92/62 L 96 06/19/19 21:00 90 17 86/53 L 97 06/19/19 20:40 89 17 86/46 L 97 06/19/19 20:38 89 20 97 06/19/19 20:17 92 H 22 88/53 L 96 06/19/19 20:00 36.9 C 92 H 18 96 06/19/19 19:39 37.2 C 66 100/46 L 06/19/19 19:36 90 106/55 L 06/19/19 19:16 76 91/27 L 06/19/19 19:00 91 H 19 104/45 L 96 06/19/19 18:45 72 97/56 L 06/19/19 18:30 103 H 113/35 L PG Care Time/CCT Total # of Minutes Spent Total Time Spent with Patient: Total time spent is greater than 50% in coordination of care (as documented) at patient's floor/unit and/or counseling patient: Critical Care Time: Yes Total Critical Care Time: 150 Resident Activity Tracking Resident Involvement: Resident Care Provided Care Provided: Adult Hospital Medicine (1) GI bleed GI bleed type/associated pathology: unspecified gastrointestinal hemorrhage type Qualified Code(s): K92.2 - Gastrointestinal hemorrhage, unspecified (2) Multiple myeloma Multiple myeloma remission status: unspecified Qualified Code(s): C90.00 - Multiple myeloma not having achieved remission
[2019-06-20] MEDS ORDERED: fentaNYL citrate 100 MCG/2 ML VIAL ONE ×2 (07:11→16:00)
[2019-06-20] MEDS ORDERED: MIDAZOLAM HCL 1 MG/ML 2ML VIAL ONE ×2 (07:11→16:46)
--- NOTE | 2019-06-20 07:32 | Communication Note ---
Date of Service: June 20, 2019 Permcath canceled today. Patient had temporary catheter placed last pm and has plans of transfer. Please call if needed.
[2019-06-20] MEDS: ACYCLOVIR 200 MG CAP PO SCH (07:53)
--- NOTE | 2019-06-20 08:14 | Progress Note ---
DATE: 06/20/2019 HEMATOLOGY PROGRESS NOTE DIAGNOSES: 1. Active upper gastrointestinal bleeding. 2. Respiratory distress attributable to volume overload. 3. Acute renal failure. 4. Relapsed IgA lambda multiple myeloma. 5. Pancytopenia. SUBJECTIVE: Rebecca is a pleasant 68-year-old female well known to [facility] under my care for relapsed IgA multiple myeloma. This is her second admission in quick succession. The patient had been restarted on combination Revlimid, Velcade and dexamethasone, pulsing high doses of dexamethasone every 4 days. She came in profoundly anemic. GI is on consult and attempted EGD yesterday when she acutely decompensated necessitating emergent dialysis and transferred to the ICU. According to the ICU resident, the patient has received approximately 3 units of blood over the past 24 hours. Duodenal ulcer is suspected, which again is not surprising considering this patient's corticosteroid use. Plans are underway to transfer her to the [facility] once she is medically stable. OBJECTIVE: GENERAL: Sedated 68-year-old female patient, answers questions appropriately, in no acute distress. VITAL SIGNS: Temperature 36.6, pulse 82, respiratory rate 20, blood pressure 111/61. SKIN: Without rash or lesion. HEENT: Oral mucosa is dry. No buccal lesions or ulcerations. HEART: Regular rate and rhythm. LUNGS: Clear to auscultation bilaterally. ABDOMEN: Soft, nontender, nondistended. EXTREMITIES: No clubbing, cyanosis or edema. NEUROLOGIC: Grossly intact. LABORATORY DATA: WBC count 1000, hemoglobin 6.9, platelet count 27,000. PT 12.4 seconds, INR 1.2. Sodium 142, potassium 3.4, chloride 108, carbon dioxide 23, BUN 83, creatinine 4.97, phosphorus 2.1, calcium 6.4, albumin 2.5. IMPRESSION: 1. Acute respiratory failure attributable to volume overload. 2. Acute renal injury, hemodialysis instituted. 3. Hypoalbuminemia. 4. Pancytopenia. 5. Relapsed IgA multiple myeloma. 6. Electrolyte dysfunction. PLAN: Rebecca is a pleasant unfortunate 68-year-old female patient in the midst of IgA myeloma relapse. This is her second admission in short order and unfortunately does not seem to be responding to reinduction therapy. I have been in contact with the director of construction at [facility] who is willing to take Rebecca on. Agree with initiating hemodialysis at this point. Additionally, Rebecca will need transfusional support. Unfortunately, EGD was not able to be done because of decompensation. The assumption is that she is actively bleeding and thus we would recommend transfusion of single donor platelets as patients with low platelet number and renal failure are susceptible to bleeding. From a hematologic standpoint, again once she is medically stable, she needs to be sent to [facility] to be reinduced. Hopefully, she will not remain a hemodialysis dependent. We will continue to follow her during her stay. Agree with medical management otherwise.
[2019-06-20] MEDS: SERTRALINE HCL 50 MG TABLET PO SCH (08:23)
[2019-06-20] MEDS ORDERED: PIPERACILL/TAZOBAC CONSULT ACTIVE PRN (08:38)
[2019-06-20] MEDS ORDERED: PIPERACILLIN/TAZOBACTAM 4.5 GM in DEXTROSE 5% 100 ML IV STA (08:38)
[2019-06-20] MEDS ORDERED: SODIUM CHLORIDE 0.9% 1000ML 1,000 ML IV PRN (08:50)
[2019-06-20] MEDS ORDERED: THIAMINE HCL 100 MG in SYRINGE 9 ML IV SCH (09:00)
[2019-06-20] MEDS ORDERED: OXYCODONE HCL IR 5 MG TAB (IMMEDIATE RELEASE) PO PRN (10:26)
--- NOTE | 2019-06-20 11:58 | Nephrology Progress Note ---
Date of Service June 20, 2019 Assessment & Plan (1) JACQUIE (acute kidney injury): Nadine Fuller is a 68-year-old female with acute kidney injury in the setting of multiple myeloma. Renal function has been progressively worsening with significant electrolyte abnormality, remained anuric. Also have anemia with GI bleeding hemoglobin remained low. Has thrombocytopenia and neutropenia as well. Had emergency dialysis for 2 hours via right IJ catheter on 06/19/2019 for sudden change in respiratory status and volume stone overload. --plan for dialysis today mainly for UF as patient remained anuric and requiring 2 units of blood transfusion. Plan for EGD later this afternoon. Once patient is stabilized she will get tunneled catheter later in the week, will continue to use the temporary dialysis catheter for now. Will follow (2) Pancytopenia: -- Pancytopenia due to recent chemotherapy -- Progressive anemia likely due to GIB -- Abd CT w/ changes concerning for duodenal ulcer -- GI plans for EGD Wednesday (3) Multiple myeloma: -- Oncology recommendations reviewed. Bone marrow biopsy is being considered Subjective Nadine Was seen and examined in her room this morning. Awake and alert but looks lethargic and tired. Complains of pain in her right neck IJ catheter site. She was transferred to intensive care yesterday as she became short of breath, EGD was canceled. Had IJ dialysis catheter placed in the afternoon and had emergency dialysis for 2 hours for volume overload. Tunneled dialysis catheter plan was canceled while patient is being stabilized. Remained anuric with no sign of renal recovery yet. Review of Systems Review of Systems: All systems reviewed & are unremarkable except as noted in HPI & below Physical Exam Constitutional: + ill appearing and + lethargic; no acute distress Respiratory: normal respiratory effort, lungs clear to auscultation Cardiovascular: RRR, no murmur, no edema Neurologic: moves all extremities and awake; not confused Psychiatric: A+Ox3, euthymic affect Results & Data Vital Signs (Past 12 Hours) Vital Signs Temp Pulse Pulse Resp BP Pulse Ox 06/20/19 11:40 36.8 C 78 18 102/48 L 96 06/20/19 11:30 77 102/48 L 06/20/19 11:22 36.6 C 78 20 100/68 94 06/20/19 11:15 77 100/68 06/20/19 11:00 78 109/50 L 06/20/19 10:45 80 102/55 L 06/20/19 10:30 37.0 C 80 20 99/63 L 93 06/20/19 10:15 37.0 C 79 06/20/19 10:07 36.9 C 88 18 110/60 98 06/20/19 09:52 36.6 C 78 17 110/60 98 06/20/19 09:35 36.6 C 82 18 116/63 96 06/20/19 09:29 36.6 C 85 18 96/52 L 06/20/19 09:12 36.6 C 81 18 93/52 L 96 06/20/19 08:57 36.6 C 83 18 107/60 98 06/20/19 08:41 36.6 C 86 20 100/65 98 06/20/19 08:16 36.9 C 85 20 109/60 99 06/20/19 08:00 82 06/20/19 07:07 36.6 C 82 20 111/61 98 06/20/19 06:36 36.6 C 85 20 105/74 93 06/20/19 06:06 36.8 C 83 20 109/58 L 99 06/20/19 05:51 36.6 C 89 20 120/67 97 06/20/19 05:32 36.6 C 82 16 90/55 L 96 06/20/19 05:00 89 17 95/54 L 96 06/20/19 04:00 36.5 C 83 18 104/50 L 95 06/20/19 03:00 84 24 110/57 L 06/20/19 02:00 88 16 109/55 L 96 06/20/19 01:00 84 17 97/55 L 96 06/20/19 00:00 36.5 C 85 17 97/48 L 97 PG Care Time/CCT Total # of Minutes Spent Total Time Spent with Patient: Total time spent is greater than 50% in coordination of care (as documented) at patient's floor/unit and/or counseling patient: (1) Multiple myeloma Multiple myeloma remission status: unspecified Qualified Code(s): C90.00 - Multiple myeloma not having achieved remission
[2019-06-20] MEDS ORDERED: SODIUM BICARBONATE 650 MG TAB PO SCH (12:30)
[2019-06-20 14:48] LABS: Hematocrit (blood only) 25.4 % (37-47); Hemoglobin 8.6 g/dL (12.0-16.0); Mean Corpuscular Hemoglobin 31.2 pg (25-34); Mean Corpuscular Hgb Conc 33.9 g/dL (32-36); Mean Platelet Volume 9.7 fL (7.4-10.4); Nucleated RBC # (auto) 0.12 K/uL (0-0); Nucleated RBC % (auto) 13.7 %; Platelet Count 24 K/uL (130-400); RDW Coefficient of Variation 19.5 % (11.5-14.5); RDW Standard Deviation 63.9 fL (36.4-46.3); Red Blood Count 2.76 M/uL (4.2-5.4); White Blood Count 0.89 K/uL (4.8-10.8)
--- NOTE | 2019-06-20 15:38 | Anesthesiology Consultation ---
Date of Service June 20, 2019 Assessment & Plan Chart Review Chart Review: Acceptable Risk for Surgery and Patient NOT seen in Pre Admission Testing Consults Requested none ASA ASA4 Proposed Anesthesia Anesthesia Type: General Risk / Benefits Reviewed With: PT / POA / Parent / Guardian, Accepts Plan and Informed Consent Obtained History Surgery Operation Date: 06/19/19 08:30 Proposed Procedures p Esophagogastroduodenoscopy Dr Carly Carroll Operation Date: 06/20/19 08:00 Proposed Procedures p Perm Catheter Placement - Riley Flores MD Operation Date: 06/20/19 12:20 Proposed Procedures p Esophagogastroduodenoscopy Dr Carly Carroll Height/Weight Height: 5 ft 5 in Weight: 94.3 kg Allergies Allergy/AdvReac Type Severity Reaction Status Date / Time ibuprofen AdvReac Tachycardia Verified 06/16/19 17:09 Medications Home Medications Medication Instructions Recorded Confirmed Last Taken aspirin [Vika Aspirin] 325 mg PO QAM 08/08/18 06/16/19 06/16/19 sertraline [Zoloft] 100 mg PO BID 08/08/18 06/16/19 06/16/19 oxycodone 10 mg PO Q6 PRN #12 tab 08/16/18 06/16/19 Unknown lenalidomide [Revlimid] 25 mg PO DAILY 06/13/19 06/16/19 06/16/19 acyclovir 400 mg PO BID 06/16/19 06/16/19 06/16/19 dexamethasone 4 mg PO DIRECTED 06/16/19 06/16/19 06/16/19 diphenhydramine-acetaminophen 1 tab PO HS PRN 06/16/19 06/16/19 Unknown [Tylenol PM Extra Strength] omeprazole 40 mg PO QAM 06/16/19 06/16/19 06/16/19 prochlorperazine maleate 10 mg PO Q6H PRN 06/16/19 06/16/19 Unknown Active Medications Generic Name Dose Route Start Last Admin Trade Name Freq PRN Reason Stop Dose Admin Acyclovir 200 mg 06/16/19 21:00 06/20/19 07:53 Zovirax PO 07/16/19 20:59 200 mg BID JOVANY Administration Pantoprazole Sodium 40 mg/ 100 mls @ 20 mls/hr 06/16/19 19:00 06/20/19 12:43 Dextrose IV 07/16/19 18:59 20 mls/hr Q5H JOVANY Administration Sertraline HCl 50 mg 06/16/19 21:00 06/20/19 08:23 Zoloft PO 07/16/19 20:59 50 mg BID JOVANY Administration NPO Date Last Intake of Fluids: 06/20/19 Time Last Intake of Fluids: 09:00 Last Intake of Fluids Comment: sips water with medications Date Last Intake of Solids: 06/18/19 Past Medical History Medical History History of TIA (transient ischemic attack) JACQUIE (acute kidney injury) History of TIA (transient ischemic attack) History of hysterectomy Leukopenia Mood disorder Multiple myeloma Exercise / Class Metabolic Activity IV < 2 Limit ADL/Bedbound Past Family History Family History Other Family history non-contributory Past Anesthesia History No Hx of Anesthesia Complications and No Family Hx of Anesthesia Complications History of PONV No Hx of PONV and No Hx of Motion Sickness Social History Smoking Status: Former smoker Hx Alcohol Use: No Hx Substance Use: No substance use type: does not use Physical Exam Vital Signs Last Vital Signs Temp 37.0 C 06/20/19 13:30 Pulse 86 06/20/19 13:30 Resp 17 06/20/19 13:30 BP 119/86 06/20/19 13:30 Pulse Ox 96 06/20/19 13:30 Constitutional + obese ENMT Mouth: + poor dentition and + small oral opening Thyromental Distance: < 3.5 Finger Breadths Mallampati Class: III Neck normal visual inspection and trachea midline; neck extension not limited Respiratory normal respiratory effort Auscultation: + diminished lung sounds Cardiovascular Rate/Rhythm: regular rate and regular rhythm Heart Sounds: no murmur Vessels: no carotid bruit Musculoskeletal Spine: normal cervical ROM Neurologic moves all extremities Motor/Sensory: no sensory deficit Psychiatric Orientation: alert and oriented x 3 Testing Laboratory Results 06/20/19 14:25 06/20/19 04:45 PT 12.4 Seconds (9.0-12.0) H 06/20/19 04:45 INR 1.2 (0.9-1.1) H 06/20/19 04:45 Blood Type A Positive 06/19/19 07:31 Antibody Screen NEGATIVE 06/19/19 07:31
[2019-06-20] MEDS ORDERED: ETOMIDATE 2 MG/ML 20 ML VIAL IV ONE (15:42)
[2019-06-20] MEDS ORDERED: PROPOFOL IV EMULSION 10 MG/ML 20 ML VIAL IV ONE (15:42)
--- NOTE | 2019-06-20 15:42 | History & Physical Report ---
Date of Service June 20, 2019 History of Present Illness Chief Complaint: GI bleed, anemia Primary Care Provider: Albino Mcmanus For EGD in OR Allergies Allergy/AdvReac Type Severity Reaction Status Date / Time ibuprofen AdvReac Tachycardia Verified 06/16/19 17:09 Home Medications Home Medications Medication Instructions Recorded Confirmed Type aspirin [Vika Aspirin] 325 mg PO QAM 08/08/18 06/16/19 History sertraline [Zoloft] 100 mg PO BID 08/08/18 06/16/19 History oxycodone 10 mg PO Q6 PRN #12 tab 08/16/18 06/16/19 Rx lenalidomide [Revlimid] 25 mg PO DAILY 06/13/19 06/16/19 History acyclovir 400 mg PO BID 06/16/19 06/16/19 History dexamethasone 4 mg PO DIRECTED 06/16/19 06/16/19 History diphenhydramine-acetaminophen 1 tab PO HS PRN 06/16/19 06/16/19 History [Tylenol PM Extra Strength] omeprazole 40 mg PO QAM 06/16/19 06/16/19 History prochlorperazine maleate 10 mg PO Q6H PRN 06/16/19 06/16/19 History Past Med/Surg History Medical History History of TIA (transient ischemic attack) JACQUIE (acute kidney injury) History of TIA (transient ischemic attack) History of hysterectomy Leukopenia Mood disorder Multiple myeloma Family History Other Family history non-contributory Social History Preferred Language: Swazi Communication Ability: Effective Visual Impairment: No Limitations Hearing Ability: Normal [employer] Required: No Beliefs That Will Affect Care: None Current Living Situation: Alone Current Living Situation Comment: lives with son Feels Safe at Home: Yes Smoking Status: Former smoker Second Hand Exposure: No ; Hx Alcohol Use: No Hx Substance Use: No Physical Exam 2 Respiratory: normal respiratory effort Cardiovascular: Rate/Rhythm: regular rate and regular rhythm Gastrointestinal (Abdomen): Inspection/Auscultation: + abdomen distended Results & Data Vital Signs (Past 12 Hours) Vital Signs Temp Pulse Pulse Pulse Resp BP BP 06/20/19 13:30 37.0 C 85 86 17 110/63 119/86 06/20/19 13:15 85 16 110/63 06/20/19 13:00 80 22 91/55 L 06/20/19 12:45 79 18 91/61 L 06/20/19 12:30 77 15 100/47 L 06/20/19 12:15 85 22 101/55 L 06/20/19 12:00 36.6 C 77 78 19 86/51 L 86/51 L 06/20/19 11:45 81 18 80/56 L 06/20/19 11:40 36.8 C 78 18 102/48 L 06/20/19 11:33 76 21 102/48 L 06/20/19 11:30 82 19 100/47 L 06/20/19 11:22 36.6 C 78 20 100/68 06/20/19 11:15 85 17 100/68 06/20/19 11:00 82 16 109/50 L 06/20/19 10:45 82 16 102/55 L 06/20/19 10:30 37.0 C 84 17 99/63 L 06/20/19 10:15 37.0 C 83 79 20 99/62 L 06/20/19 10:07 36.9 C 88 18 110/60 06/20/19 10:05 85 20 110/60 06/20/19 10:00 87 23 06/20/19 09:52 36.6 C 78 17 110/60 06/20/19 09:45 86 18 117/71 06/20/19 09:35 36.6 C 82 20 116/63 06/20/19 09:29 36.6 C 85 18 96/52 L 06/20/19 09:15 82 23 96/52 L 06/20/19 09:12 36.6 C 81 18 93/52 L 06/20/19 09:10 86 24 93/52 L 06/20/19 09:00 83 28 H 107/60 06/20/19 08:57 36.6 C 83 18 107/60 06/20/19 08:45 81 33 H 104/44 L 06/20/19 08:44 81 24 103/64 06/20/19 08:41 36.6 C 86 20 100/65 06/20/19 08:38 86 24 100/50 L 06/20/19 08:20 82 20 109/60 06/20/19 08:16 36.9 C 85 20 109/60 06/20/19 08:02 84 16 06/20/19 08:00 82 06/20/19 07:07 36.6 C 82 20 111/61 06/20/19 07:00 84 25 H 111/61 06/20/19 06:36 36.6 C 82 20 105/74 06/20/19 06:30 82 19 103/54 L 06/20/19 06:15 88 24 105/61 06/20/19 06:06 36.8 C 83 20 109/58 L 06/20/19 06:01 109/58 L 06/20/19 06:00 86 15 06/20/19 05:57 86 25 H 120/67 06/20/19 05:51 36.6 C 89 20 120/67 06/20/19 05:45 87 28 H 99/53 L 06/20/19 05:33 81 13 90/50 L 06/20/19 05:32 36.6 C 82 16 90/55 L 06/20/19 05:30 87 34 H 94/55 L 06/20/19 05:00 89 17 95/54 L 06/20/19 04:00 36.5 C 83 18 104/50 L Pulse Ox 06/20/19 13:30 96 06/20/19 13:15 97 06/20/19 13:00 97 06/20/19 12:45 95 06/20/19 12:30 94 06/20/19 12:15 94 06/20/19 12:00 95 06/20/19 11:45 96 06/20/19 11:40 96 06/20/19 11:33 98 06/20/19 11:30 96 06/20/19 11:22 94 06/20/19 11:15 95 06/20/19 11:00 96 06/20/19 10:45 96 06/20/19 10:30 94 06/20/19 10:15 96 06/20/19 10:07 98 06/20/19 10:05 97 06/20/19 10:00 06/20/19 09:52 98 06/20/19 09:45 93 06/20/19 09:35 96 06/20/19 09:29 06/20/19 09:15 95 06/20/19 09:12 96 06/20/19 09:10 95 06/20/19 09:00 96 06/20/19 08:57 98 06/20/19 08:45 97 06/20/19 08:44 96 06/20/19 08:41 98 06/20/19 08:38 97 06/20/19 08:20 06/20/19 08:16 99 06/20/19 08:02 06/20/19 08:00 06/20/19 07:07 98 06/20/19 07:00 98 06/20/19 06:36 98 06/20/19 06:30 98 06/20/19 06:15 99 06/20/19 06:06 99 06/20/19 06:01 06/20/19 06:00 99 06/20/19 05:57 97 06/20/19 05:51 97 06/20/19 05:45 95 06/20/19 05:33 96 06/20/19 05:32 96 06/20/19 05:30 97 06/20/19 05:00 96 06/20/19 04:00 95 Code Status & VTE Plan VTE Prophylaxis Plan VTE Prophylaxis will be ordered: No
--- NOTE | 2019-06-20 15:43 | Anesthesiology Progress Note ---
Date of Service June 20, 2019 Anesthesia Post Procedure Vital Signs Vital Signs: Temp Pulse Pulse Pulse Resp BP BP 06/20/19 13:30 37.0 C 85 86 17 110/63 119/86 06/20/19 13:15 85 16 110/63 06/20/19 13:00 80 22 91/55 L 06/20/19 12:45 79 18 91/61 L 06/20/19 12:30 77 15 100/47 L 06/20/19 12:15 85 22 101/55 L 06/20/19 12:00 36.6 C 77 78 19 86/51 L 86/51 L 06/20/19 11:45 81 18 80/56 L 06/20/19 11:40 36.8 C 78 18 102/48 L 06/20/19 11:33 76 21 102/48 L 06/20/19 11:30 82 19 100/47 L 06/20/19 11:22 36.6 C 78 20 100/68 06/20/19 11:15 85 17 100/68 06/20/19 11:00 82 16 109/50 L 06/20/19 10:45 82 16 102/55 L 06/20/19 10:30 37.0 C 84 17 99/63 L 06/20/19 10:15 37.0 C 83 79 20 99/62 L 06/20/19 10:07 36.9 C 88 18 110/60 06/20/19 10:05 85 20 110/60 06/20/19 10:00 87 23 06/20/19 09:52 36.6 C 78 17 110/60 06/20/19 09:45 86 18 117/71 06/20/19 09:35 36.6 C 82 20 116/63 06/20/19 09:29 36.6 C 85 18 96/52 L 06/20/19 09:15 82 23 96/52 L 06/20/19 09:12 36.6 C 81 18 93/52 L 06/20/19 09:10 86 24 93/52 L 06/20/19 09:00 83 28 H 107/60 06/20/19 08:57 36.6 C 83 18 107/60 06/20/19 08:45 81 33 H 104/44 L 06/20/19 08:44 81 24 103/64 06/20/19 08:41 36.6 C 86 20 100/65 06/20/19 08:38 86 24 100/50 L 06/20/19 08:20 82 20 109/60 06/20/19 08:16 36.9 C 85 20 109/60 06/20/19 08:02 84 16 06/20/19 08:00 82 06/20/19 07:07 36.6 C 82 20 111/61 06/20/19 07:00 84 25 H 111/61 06/20/19 06:36 36.6 C 82 20 105/74 06/20/19 06:30 82 19 103/54 L 06/20/19 06:15 88 24 105/61 06/20/19 06:06 36.8 C 83 20 109/58 L 06/20/19 06:01 109/58 L 06/20/19 06:00 86 15 06/20/19 05:57 86 25 H 120/67 06/20/19 05:51 36.6 C 89 20 120/67 06/20/19 05:45 87 28 H 99/53 L 06/20/19 05:33 81 13 90/50 L 06/20/19 05:32 36.6 C 82 16 90/55 L 06/20/19 05:30 87 34 H 94/55 L 06/20/19 05:00 89 17 95/54 L 06/20/19 04:00 36.5 C 83 18 104/50 L 06/20/19 03:00 84 24 110/57 L 06/20/19 02:00 88 16 109/55 L 06/20/19 01:00 84 17 97/55 L 06/20/19 00:00 36.5 C 85 17 97/48 L 06/19/19 23:00 93 H 20 103/63 06/19/19 22:00 89 20 92/62 L 06/19/19 21:00 90 17 86/53 L 06/19/19 20:40 89 17 86/46 L 06/19/19 20:38 89 20 06/19/19 20:17 92 H 22 88/53 L 06/19/19 20:00 36.9 C 92 H 18 06/19/19 19:39 37.2 C 66 100/46 L 06/19/19 19:36 90 106/55 L 06/19/19 19:16 76 91/27 L 06/19/19 19:00 91 H 19 104/45 L 06/19/19 18:45 72 97/56 L 06/19/19 18:30 103 H 113/35 L 06/19/19 18:15 100 H 116/42 L 06/19/19 18:00 96 H 115/56 L 06/19/19 17:45 103 H 122/55 L 06/19/19 17:30 97 H 106/50 L 06/19/19 17:15 110 H 108/56 L 06/19/19 17:00 37.2 C 103 H 06/19/19 15:43 99 H Pulse Ox 06/20/19 13:30 96 06/20/19 13:15 97 06/20/19 13:00 97 06/20/19 12:45 95 06/20/19 12:30 94 06/20/19 12:15 94 06/20/19 12:00 95 06/20/19 11:45 96 06/20/19 11:40 96 06/20/19 11:33 98 06/20/19 11:30 96 06/20/19 11:22 94 06/20/19 11:15 95 06/20/19 11:00 96 06/20/19 10:45 96 06/20/19 10:30 94 06/20/19 10:15 96 06/20/19 10:07 98 06/20/19 10:05 97 06/20/19 10:00 06/20/19 09:52 98 06/20/19 09:45 93 06/20/19 09:35 96 06/20/19 09:29 06/20/19 09:15 95 06/20/19 09:12 96 06/20/19 09:10 95 06/20/19 09:00 96 06/20/19 08:57 98 06/20/19 08:45 97 06/20/19 08:44 96 06/20/19 08:41 98 06/20/19 08:38 97 06/20/19 08:20 06/20/19 08:16 99 06/20/19 08:02 06/20/19 08:00 06/20/19 07:07 98 06/20/19 07:00 98 06/20/19 06:36 98 06/20/19 06:30 98 06/20/19 06:15 99 06/20/19 06:06 99 06/20/19 06:01 06/20/19 06:00 99 06/20/19 05:57 97 06/20/19 05:51 97 06/20/19 05:45 95 06/20/19 05:33 96 06/20/19 05:32 96 06/20/19 05:30 97 06/20/19 05:00 96 06/20/19 04:00 95 06/20/19 03:00 06/20/19 02:00 96 06/20/19 01:00 96 06/20/19 00:00 97 06/19/19 23:00 96 06/19/19 22:00 96 06/19/19 21:00 97 06/19/19 20:40 97 06/19/19 20:38 97 06/19/19 20:17 96 06/19/19 20:00 96 06/19/19 19:39 06/19/19 19:36 06/19/19 19:16 06/19/19 19:00 96 06/19/19 18:45 06/19/19 18:30 06/19/19 18:15 06/19/19 18:00 06/19/19 17:45 06/19/19 17:30 06/19/19 17:15 06/19/19 17:00 06/19/19 15:43 Pain Intensity Abdomen: Pain Intensity: 3 Transfer of Care Handoff Completed per policy Notes Mental Status: alert / awake / arousable Patient Amnestic to Procedure: Yes Nausea / Vomiting: adequately controlled Pain: adequately controlled Airway Patency, RR, SpO2: stable & adequate BP & HR: stable & adequate Hydration State: stable & adequate Anesthetic Complications: no major complications apparent
[2019-06-20 15:49] LABS: ALC (manual) 0.35 K/uL (1.2-3.4); Eosinophils # (manual) 0.08 K/uL (0-0.5); Lymphocytes # (manual) 0.35 K/uL (1.2-3.4); Monocytes # (manual) 0.06 K/uL (0.11-0.59)
[2019-06-20] MEDS ORDERED: SUCCINYLCHOLINE 100MG/5ML SYR ONE (16:18)
--- NOTE | 2019-06-20 16:31 | GI REPORT ---
Patient Name: Rebecca Fuller Procedure Date: 06/20/2019 3:30 PM Date of : 1950 Admit Type: Inpatient Age: 68 Gender: Female Attending MD: Scott Carroll MD Procedure: Upper GI endoscopy Providers: Scott Carroll MD Referring MD: Shane Mix Indications: Acute post hemorrhagic anemia, Hematemesis, Hematochezia Medicines: General Anesthesia Complications: No immediate complications. Estimated blood loss: Minimal. Estimated Blood Loss: Estimated blood loss was minimal. Procedure: Pre-Anesthesia Assessment: - Prior to the procedure, a History and Physical was performed, and patient medications, allergies and sensitivities were reviewed. The patient's tolerance of previous anesthesia was reviewed. - The risks and benefits of the procedure and the sedation options and risks were discussed with the patient. All questions were answered and informed consent was obtained. After obtaining informed consent, the endoscope was passed under direct vision. Throughout the procedure, the patient's blood pressure, pulse, and oxygen saturations were monitored continuously. The Endoscope was introduced through the mouth, and advanced to the second part of duodenum. The upper GI endoscopy was accomplished without difficulty. The patient tolerated the procedure well. Findings: The Z-line was regular and was found 36 cm from the incisors. Fresh blood from intubation. Red blood was found in the gastric body. One non-bleeding cratered gastric ulcer with adherent clot was found on the greater curvature of the gastric body. The lesion was 5 mm in largest dimension. Area was successfully injected with 1 mL of a 1:10,000 solution of epinephrine for drug delivery. For hemostasis, one hemostatic clip was successfully placed (MR conditional). There was no bleeding at the end of the procedure. Estimated blood loss was minimal. The examined duodenum was normal. Impression: - Z-line regular, 36 cm from the incisors. - Fresh blood from intubation. - Red blood in the gastric body. - Non-bleeding gastric ulcer with adherent clot. Injected. Clip (MR conditional) was placed. - Normal examined duodenum. - No specimens collected. Recommendation: - Return patient to [facility] for ongoing care. Scott Carroll M.D. Scott Carroll MD 06/20/2019 4:31:17 PM This report has been signed electronically. Note Initiated On: 06/20/2019 3:30 PM Number of Addenda: 0 I attest to the content of the Intraoperative Record and orders documented therein, exceptions below {[id number]}
[2019-06-20] MEDS ORDERED: LABETALOL HCL IV 5 MG/ML 20ML IV PRN (16:51)
[2019-06-20] MEDS ORDERED: ATROPINE SULFATE 0.1 MG/ML 10ML SYR IV PRN (16:51)
[2019-06-20] MEDS ORDERED: NALOXONE HCL 0.4 MG/1 ML VIAL/CARP IV PRN (16:51)
[2019-06-20] MEDS ORDERED: FLUMAZENIL 0.1 MG/1 ML 10 ML VIAL IV PRN (16:51)
[2019-06-20] MEDS ORDERED: fentaNYL citrate 100 MCG/2 ML VIAL IV PRN (16:51)
[2019-06-20] MEDS ORDERED: ePHEDrine sulfate 50 MG/ML AMP IV PRN (16:51)
[2019-06-20] MEDS ORDERED: ONDANSETRON INJ 2 MG/ML 2 ML VIAL IV PRN (16:51)
[2019-06-20] MEDS ORDERED: PROMETHAZINE HCL 12.5 MG in SODIUM CHLORIDE 0.9% 50 ML IV PRN (16:51)
--- NOTE | 2019-06-20 16:55 | Progress Note ---
DATE: 06/20/2019 The patient underwent an EGD today for her GI bleeding and acute blood loss anemia. Her previous CT scan suggested a lesion in the duodenum. The procedure was performed in the operating room with endotracheal intubation to protect her airway. She had a difficult intubation and the oropharyngeal mucosa was irritated by the endotracheal tube placement and there was some bleeding in the mouth from this. The scope was passed however through the mouth into the esophagus which was normal. There was no blood in the esophagus. GE junction was normal at 36 cm. The stomach had some fresh blood in the fundus which was suctioned out and the stomach was carefully inspected. There was a small 5 mm ulcer in the greater curvature of the distal body of the stomach. There was an adherent clot that was washed off. The area was injected with 1 mL of epinephrine and then clipped with a Hemoclip. There was no active bleeding. The duodenum was normal with no signs of ulceration or bleeding lesions. IMPRESSION: The patient had a gastric ulcer which is most likely the source of her blood loss from her upper digestive tract. This was injected and clipped with good effect. Hopefully, this will prevent further bleeding. She did have some incidental bleeding in her mouth from the endotracheal intubation which was traumatic due to difficult airway and the endotracheal tube will be remaining in place to protect her airway until bleeding subsides and can be removed. The plan is to transfer her to the intensive care unit at [facility] as soon as bed is available.
[2019-06-20] MEDS ORDERED: THROMBIN FOR SOLN 20000 UNIT KIT ONE (17:01)
--- NOTE | 2019-06-20 17:02 | Anesthesiology Progress Note ---
Date of Service June 20, 2019 Pt had EGD. PT is severely thrombocytopenic. Using a Glidescope # 3,pt was intubated w/ 7.0 ETT. Oral mucosa was excoriated w/ ETT tube tip and profuse bleeding started. Procedure proceeded w/o incident. I felt it was best to maintain and protect the airway with ETT in place, transfer to ICU and place on mechanical ventilator.Discussed case w/ Dr Santoyo, who concurs. Report given. Physical Exam Vital Signs: Last Vital Signs Temp 37.0 C 06/20/19 13:30 Pulse 86 06/20/19 13:30 Resp 17 06/20/19 13:30 BP 119/86 06/20/19 13:30 Pulse Ox 96 06/20/19 13:30 Results & Data Medications Administered Acyclovir (Zovirax) 200 mg PO BID JOVANY Stop: 07/16/19 20:59 Last Admin: 06/20/19 07:53 Dose: 200 mg Documented by: [id number] Admin: 06/19/19 21:05 Dose: 200 mg Documented by: [id number] Admin: 06/19/19 08:41 Dose: 200 mg Documented by: [id number] Admin: 06/18/19 19:52 Dose: 200 mg Documented by: [id number] Admin: 06/18/19 07:52 Dose: 200 mg Documented by: [id number] Admin: 06/17/19 21:14 Dose: Not Given Documented by: [id number] Admin: 06/17/19 07:51 Dose: 200 mg Documented by: [id number] Admin: 06/16/19 22:33 Dose: Not Given Documented by: [id number] Pantoprazole Sodium 40 mg/ (Dextrose) 100 mls @ 20 mls/hr IV Q5H JOVANY Stop: 07/16/19 18:59 Last Infusion: 06/20/19 15:57 Dose: 0 mls/hr Documented by: [id number] Admin: 06/20/19 12:43 Dose: 20 mls/hr Documented by: [id number] Infusion: 06/20/19 12:43 Dose: 20 mls/hr Documented by: [id number] Admin: 06/20/19 08:22 Dose: 20 mls/hr Documented by: [id number] Infusion: 06/20/19 07:33 Dose: 0 mls/hr Documented by: [id number] Admin: 06/20/19 02:21 Dose: 20 mls/hr Documented by: [id number] Infusion: 06/20/19 02:05 Dose: 20 mls/hr Documented by: [id number] Admin: 06/19/19 21:05 Dose: 20 mls/hr Documented by: [id number] Infusion: 06/19/19 21:05 Dose: 20 mls/hr Documented by: [id number] Admin: 06/19/19 17:06 Dose: Not Given Documented by: [id number] Admin: 06/19/19 16:49 Dose: 20 mls/hr Documented by: [id number] Infusion: 06/19/19 15:57 Dose: 20 mls/hr Documented by: [id number] Admin: 06/19/19 10:57 Dose: 20 mls/hr Documented by: [id number] Infusion: 06/19/19 10:47 Dose: 20 mls/hr Documented by: [id number] Admin: 06/19/19 05:47 Dose: 20 mls/hr Documented by: [id number] Infusion: 06/19/19 05:22 Dose: 20 mls/hr Documented by: [id number] Admin: 06/19/19 00:22 Dose: 20 mls/hr Documented by: [id number] Infusion: 06/18/19 21:20 Dose: 20 mls/hr Documented by: [id number] Admin: 06/18/19 16:20 Dose: 20 mls/hr Documented by: [id number] Infusion: 06/18/19 16:20 Dose: 20 mls/hr Documented by: [id number] Admin: 06/18/19 13:01 Dose: 20 mls/hr Documented by: [id number] Infusion: 06/18/19 12:51 Dose: 20 mls/hr Documented by: [id number] Admin: 06/18/19 07:51 Dose: 20 mls/hr Documented by: [id number] Infusion: 06/18/19 07:31 Dose: 20 mls/hr Documented by: [id number] Admin: 06/18/19 02:31 Dose: 20 mls/hr Documented by: [id number] Infusion: 06/18/19 02:14 Dose: 20 mls/hr Documented by: [id number] Admin: 06/17/19 21:14 Dose: 20 mls/hr Documented by: [id number] Infusion: 06/17/19 21:14 Dose: 20 mls/hr Documented by: [id number] Admin: 06/17/19 16:57 Dose: 20 mls/hr Documented by: [id number] Infusion: 06/17/19 16:57 Dose: 0 mls/hr Documented by: [id number] Infusion: 06/17/19 13:05 Dose: 0 mls/hr Documented by: [id number] Admin: 06/17/19 11:10 Dose: 20 mls/hr Documented by: [id number] Infusion: 06/17/19 11:10 Dose: 20 mls/hr Documented by: [id number] Admin: 06/17/19 06:59 Dose: 20 mls/hr Documented by: [id number] Infusion: 06/17/19 06:11 Dose: 20 mls/hr Documented by: [id number] Admin: 06/17/19 01:11 Dose: 20 mls/hr Documented by: [id number] Infusion: 06/17/19 01:11 Dose: 20 mls/hr Documented by: [id number] Admin: 06/16/19 21:38 Dose: 20 mls/hr Documented by: [id number] Sertraline HCl (Zoloft) 50 mg PO BID JOVANY Stop: 07/16/19 20:59 Last Admin: 06/20/19 08:23 Dose: 50 mg Documented by: [id number] Admin: 06/19/19 21:05 Dose: 50 mg Documented by: [id number] Admin: 06/19/19 09:03 Dose: 50 mg Documented by: [id number] Admin: 06/18/19 20:28 Dose: 50 mg Documented by: [id number] Admin: 06/18/19 07:52 Dose: 50 mg Documented by: [id number] Admin: 06/17/19 21:14 Dose: 50 mg Documented by: [id number] Admin: 06/17/19 07:51 Dose: 50 mg Documented by: [id number] Admin: 06/16/19 22:32 Dose: 50 mg Documented by: [id number] Sodium Bicarbonate (Sodium Bicarbonate) 325 mg PO BID JOVANY Stop: 07/20/19 12:29 Last Admin: 06/20/19 15:56 Dose: Not Given Documented by: [id number]
[2019-06-20] MEDS ORDERED: PROPOFOL IV EMULSION 10 MG/ML 100 ML VIAL IV ONE (17:04)
--- NOTE | 2019-06-20 17:42 | Anesthesiology Progress Note ---
Date of Service June 20, 2019 Anesthesia Post Procedure Vital Signs Vital Signs: Temp Pulse Pulse Pulse Resp BP BP 06/20/19 13:30 37.0 C 85 86 17 110/63 119/86 06/20/19 13:15 85 16 110/63 06/20/19 13:00 80 22 91/55 L 06/20/19 12:45 79 18 91/61 L 06/20/19 12:30 77 15 100/47 L 06/20/19 12:15 85 22 101/55 L 06/20/19 12:00 36.6 C 77 78 19 86/51 L 86/51 L 06/20/19 11:45 81 18 80/56 L 06/20/19 11:40 36.8 C 78 18 102/48 L 06/20/19 11:33 76 21 102/48 L 06/20/19 11:30 82 19 100/47 L 06/20/19 11:22 36.6 C 78 20 100/68 06/20/19 11:15 85 17 100/68 06/20/19 11:00 82 16 109/50 L 06/20/19 10:45 82 16 102/55 L 06/20/19 10:30 37.0 C 84 17 99/63 L 06/20/19 10:15 37.0 C 83 79 20 99/62 L 06/20/19 10:07 36.9 C 88 18 110/60 06/20/19 10:05 85 20 110/60 06/20/19 10:00 87 23 06/20/19 09:52 36.6 C 78 17 110/60 06/20/19 09:45 86 18 117/71 06/20/19 09:35 36.6 C 82 20 116/63 06/20/19 09:29 36.6 C 85 18 96/52 L 06/20/19 09:15 82 23 96/52 L 06/20/19 09:12 36.6 C 81 18 93/52 L 06/20/19 09:10 86 24 93/52 L 06/20/19 09:00 83 28 H 107/60 06/20/19 08:57 36.6 C 83 18 107/60 06/20/19 08:45 81 33 H 104/44 L 06/20/19 08:44 81 24 103/64 06/20/19 08:41 36.6 C 86 20 100/65 06/20/19 08:38 86 24 100/50 L 06/20/19 08:20 82 20 109/60 06/20/19 08:16 36.9 C 85 20 109/60 06/20/19 08:02 84 16 06/20/19 08:00 82 06/20/19 07:07 36.6 C 82 20 111/61 06/20/19 07:00 84 25 H 111/61 06/20/19 06:36 36.6 C 82 20 105/74 06/20/19 06:30 82 19 103/54 L 06/20/19 06:15 88 24 105/61 06/20/19 06:06 36.8 C 83 20 109/58 L 06/20/19 06:01 109/58 L 06/20/19 06:00 86 15 06/20/19 05:57 86 25 H 120/67 06/20/19 05:51 36.6 C 89 20 120/67 06/20/19 05:45 87 28 H 99/53 L 06/20/19 05:33 81 13 90/50 L 06/20/19 05:32 36.6 C 82 16 90/55 L 06/20/19 05:30 87 34 H 94/55 L 06/20/19 05:00 89 17 95/54 L 06/20/19 04:00 36.5 C 83 18 104/50 L 06/20/19 03:00 84 24 110/57 L 06/20/19 02:00 88 16 109/55 L 06/20/19 01:00 84 17 97/55 L 06/20/19 00:00 36.5 C 85 17 97/48 L 06/19/19 23:00 93 H 20 103/63 06/19/19 22:00 89 20 92/62 L 06/19/19 21:00 90 17 86/53 L 06/19/19 20:40 89 17 86/46 L 06/19/19 20:38 89 20 06/19/19 20:17 92 H 22 88/53 L 06/19/19 20:00 36.9 C 92 H 18 06/19/19 19:39 37.2 C 66 100/46 L 06/19/19 19:36 90 106/55 L 06/19/19 19:16 76 91/27 L 06/19/19 19:00 91 H 19 104/45 L 06/19/19 18:45 72 97/56 L 06/19/19 18:30 103 H 113/35 L 06/19/19 18:15 100 H 116/42 L 06/19/19 18:00 96 H 115/56 L 06/19/19 17:45 103 H 122/55 L Pulse Ox 06/20/19 13:30 96 06/20/19 13:15 97 06/20/19 13:00 97 06/20/19 12:45 95 06/20/19 12:30 94 06/20/19 12:15 94 06/20/19 12:00 95 06/20/19 11:45 96 06/20/19 11:40 96 06/20/19 11:33 98 06/20/19 11:30 96 06/20/19 11:22 94 06/20/19 11:15 95 06/20/19 11:00 96 06/20/19 10:45 96 06/20/19 10:30 94 06/20/19 10:15 96 06/20/19 10:07 98 06/20/19 10:05 97 06/20/19 10:00 06/20/19 09:52 98 06/20/19 09:45 93 06/20/19 09:35 96 06/20/19 09:29 06/20/19 09:15 95 06/20/19 09:12 96 06/20/19 09:10 95 06/20/19 09:00 96 06/20/19 08:57 98 06/20/19 08:45 97 06/20/19 08:44 96 06/20/19 08:41 98 06/20/19 08:38 97 06/20/19 08:20 06/20/19 08:16 99 06/20/19 08:02 06/20/19 08:00 06/20/19 07:07 98 06/20/19 07:00 98 06/20/19 06:36 98 06/20/19 06:30 98 06/20/19 06:15 99 06/20/19 06:06 99 06/20/19 06:01 06/20/19 06:00 99 06/20/19 05:57 97 06/20/19 05:51 97 06/20/19 05:45 95 06/20/19 05:33 96 06/20/19 05:32 96 06/20/19 05:30 97 06/20/19 05:00 96 06/20/19 04:00 95 06/20/19 03:00 06/20/19 02:00 96 06/20/19 01:00 96 06/20/19 00:00 97 06/19/19 23:00 96 06/19/19 22:00 96 06/19/19 21:00 97 06/19/19 20:40 97 06/19/19 20:38 97 06/19/19 20:17 96 06/19/19 20:00 96 06/19/19 19:39 06/19/19 19:36 06/19/19 19:16 06/19/19 19:00 96 06/19/19 18:45 06/19/19 18:30 06/19/19 18:15 06/19/19 18:00 06/19/19 17:45 Pain Intensity Abdomen: Pain Intensity: 3 Transfer of Care Handoff Completed per policy Notes Mental Status: see notes below Patient Amnestic to Procedure: Yes Nausea / Vomiting: see Notes below Pain: see Notes below Airway Patency, RR, SpO2: stable & adequate BP & HR: stable & adequate Hydration State: stable & adequate Anesthetic Complications: no major complications apparent Notes: pt was kept intubated and placed on a mechanical ventilator post op;report given to Dr Santoyo
--- NOTE | 2019-06-20 17:58 | Discharge Summary ---
Date of Service June 20, 2019 Admission HPI Per Admitting Provider For EGD in OR Principal Diagnosis multiple myeloma Discharge Data Allergies Allergy/AdvReac Type Severity Reaction Status Date / Time ibuprofen AdvReac Tachycardia Verified 06/16/19 17:09 Consultations 06/16/19 18:46 ED Decision to Admit Stat 06/16/19 20:27 Consult Hematology Routine Consult Nephrology Routine 06/16/19 21:37 Consult Gastroenterology Routine 06/19/19 08:49 Consult Vascular Surgery Routine 06/19/19 15:43 Consult Case Management - Discharge Planning Routine Procedures Performed Operation Date: 06/19/19 08:30 <No data on this case meets the specified criteria> Operation Date: 06/20/19 08:00 <No data on this case meets the specified criteria> Operation Date: 06/20/19 12:20 Actual Procedures p Esophagogastroduodenoscopy (Not Applicable) - Scott Carroll Ordered Studies 06/16/19 16:59 CT abd pelvis wo con Stat 06/19/19 15:44 US point of care ultrasound Stat Hospital Course (1) Melena: See EGDnonbleeding cratered gastric ulcer with adherent clot in the greater curvature of the gastric body injected with epinephrine and then treated with a hemostatic clip. She did also apparently have a degree of airway trauma with bleeding as well. (2) Pancytopenia: Due to multiple myeloma with her Revlimid chemotherapy possibly worsening it. - Transfused - Oncology followingrequires transfer to [facility] for ongoing care and management (see below) (3) Multiple myeloma: Peripheral smear shows immature marrow forms which Dr. Billings reports indicates means she likely has significant disease burden in her bone marrow. - Bone marrow biopsy at some point, though must deal with acute issues first. - Continue dexamethasone - Continue lenalidomide if able to obtain - Palliative care consult offered, but she declined on 06/18 -Prior hospitalist discussed with [facility]. She will likely need BMT eventually. Transfer this evening (4) Depressed: - Continue sertraline (5) History of DVT (deep vein thrombosis): Unclear when this was. Not on anticoagulation as an outpatient, just full- strength aspirin. - Given overall issues, obviously cannot start DVT chemoprophylaxis at this time. - Hold ASA Total Time Total Time Spent Total Time Spent (In Minutes): Less than 30 Discharge Plan Discharge Items Reason For Visit: MELENA Medications and DC Order Prescriptions: No Action prochlorperazine maleate 10 mg tablet 10 mg PO Q6H PRN (Reason: Nausea) RF: 0 acyclovir 400 mg tablet 400 mg PO BID RF: 0 dexamethasone 4 mg tablet 4 mg PO DIRECTED RF: 0 diphenhydramine-acetaminophen [Tylenol PM Extra Strength] 25-500 mg Tablet 1 tab PO HS PRN (Reason: Sleep) RF: 0 omeprazole 40 mg capsule,delayed release(DR/EC) 40 mg PO QAM RF: 0 aspirin [Vika Aspirin] 325 mg Tablet 325 mg PO QAM RF: 0 sertraline [Zoloft] 100 mg Tablet 100 mg PO BID RF: 0 oxycodone 5 mg Tablet 10 mg PO Q6 PRN (Reason: Pain) Qty: 12 RF: 0 Revlimid 25 mg Capsule 25 mg PO DAILY RF: 0 Admission Data Admit Date/Time: 06/16/19 20:23 Attending Provider: Shane Mix Admit Provider: Nishi Clark Primary Care Provider: [facility] Other Providers: Naresh Poole ; Nishi Clark ; Travis Andersen Kevin C. ; Scott Carroll ; Riley Flores
--- NOTE | 2019-06-20 17:59 | Communication Note ---
Date of Service: June 20, 2019 Patient has bed available at [facility] to fly patient out sometime after 1900.
[2019-06-20] MEDS ORDERED: fentaNYL citrate 100 MCG/2 ML VIAL IV STA ×3 (18:02→18:41)
[2019-06-20] MEDS ORDERED: ESMOLOL / NSS 2,500 MG/250 ML BAG IV SCH (18:30)
[2019-06-20] MEDS ORDERED: ALBUMIN 25% 50 ML IV SCH (19:00)
[2019-06-20] MEDS ORDERED: PHENYLEPHRINE HCL 10 MG in DEXTROSE 5% 250 ML IV SCH (19:03)
[2019-06-20] MEDS: ALBUMIN 25% 50 ML IV SCH ×2 (19:03→19:04)
[2019-06-20] MEDS: propofoL 1,000 MG/100 ML VIAL IV SCH ×2 (19:36→20:36)
--- NOTE | 2019-06-20 20:00 | XRay Report ---
XR chest 1V portable HISTORY: 68 years-old Female ET tube placement status post placement of an endotracheal tube COMPARISON: Chest radiograph 06/19/2019 TECHNIQUE: Portable AP view of the chest FINDINGS: Endotracheal tube overlies the midline, 2.9 cm superior to the nevin. Right IJ central venous cathet er is noted with distal tip terminating in the expected location of the mid SVC. Cardiomegaly. Pulmon ashish vascular congestion without pneumothorax, large pleural effusion or lobar airspace consolidation. IMPRESSION: 1. Status post placement of an endotracheal tube, distal tip terminating 2.9 cm superior to the solomon a. 2. Cardiomegaly with pulmonary vascular congestion. The above report was generated using voice recognition software. It may contain grammatical, syntax o r spelling errors. Electronically signed by: Lemuel Quintana M.D. 06/20/2019 7:58 PM
[2019-06-20] MEDS ORDERED: Nursing to Pharmacy Communication ONE (20:02)
[2019-06-20] MEDS ORDERED: PHENYLEPHRINE HCL 20 MG in DEXTROSE 5% 500 ML IV SCH (21:00)
[2019-06-21 12:18] LABS: iSTAT Arterial Blood Gas HCO3 21 meg/L (19-24); iSTAT Arterial Blood Gas pCO2 53 mmHg (35-46); iSTAT Arterial Blood Gas pO2 < 32 mmHg (80-95); iSTAT Carbon Dioxide 22 mEq/l (24-31); iSTAT Hematocrit 29 % (37-47); iSTAT Hemoglobin 9.9 g/dl (12.0-16.0); iSTAT Potassium 3.2 mEq/L (3.3-5.0); iSTAT Sodium 144 mEq/L (135-144)
[2019-06-22] MEDS ORDERED: dexAMETHasone 4 MG TAB PO SCH (09:00)
== END 2019-06-20 21:00 | disposition short-term general hospital (02) | DRG 377 ==
LOC: ED 16:02 → SUATTDRO 20:23 → 2S 20:23 → 1E 06-19 15:22 → UNDODISIN 06-20 21:00